=== PATIENT | male | born 1955 ===

== ENCOUNTER 2018-02-21 21:31 | Emergency (ER) | payer SELFPAY ==
[2018-02-21 22:24] LABS: BASO # 0.1 K/uL (0.0-0.2); BASO % 0.8 % (0.0-2.0); EOS # 0.1 K/uL (0.0-0.7); EOS % 1.2 % (0.0-4.0); HEMOGLOBIN 14.9 g/dL (12.0-18.0); LYMPH # 1.8 K/uL (1.0-4.3); MEAN CELL VOLUME 86.4 fL (80.0-94.0); MEAN CORPUSCULAR HEMOGLOBIN 30.5 pg (27.0-31.0); MEAN CORPUSCULAR HGB CONC 35.4 g/dL (33.0-37.0); MEAN PLATELET VOLUME 8.6 fL (7.2-11.7); MONO # 0.9 K/uL (0.0-0.8); MONO % 7.5 % (0.0-10.0); NEUT # 8.8 K/uL (1.8-7.0); NEUT % 75.5 % (50.0-75.0); NRBC % 0.2 % (0.0-2.0); RBC 4.89 Mil/uL (4.40-5.90); RED CELL DISTRIBUTION WIDTH 13.5 % (11.5-14.5); WHITE BLOOD COUNT 11.6 K/uL (4.8-10.8)
[2018-02-21] MEDS ORDERED: Sodium Chloride 0.9% 1,000 ML IV ONE (22:31)
[2018-02-21] MEDS ORDERED: Sucralfate 1 gm/10 ml Oral Susp UD PO STA (22:33)
--- NOTE | 2018-02-21 22:40 | C.PDOC ---
History Of Present Illness 62 y/o male presents to the ED complaining of abdominal pain for the past hours that began after "eating a hotdog". The patient denies any nausea, vomiting or diarrhea. He also denies any radiation of pain. Time Seen by Provider: 02/21/18 22:15 Chief Complaint (Nursing): Abdominal Pain History Per: Patient History/Exam Limitations: no limitations Onset/Duration Of Symptoms: Hrs Current Symptoms Are (Timing): Still Present Context: Food (hot dog ) Location Of Pain/Discomfort: RUQ, Epigastric Associated Symptoms: denies: Nausea, Vomiting, Diarrhea Recent travel outside of the [place]: No Past Medical History Reviewed: Historical Data, Nursing Documentation, Vital Signs Vital Signs: Last Vital Signs Temp 98.1 F 02/21/18 21:35 Pulse 87 02/21/18 21:35 Resp 16 02/21/18 21:35 BP 180/79 H 02/21/18 21:35 Pulse Ox 98 02/21/18 21:35 - Medical History PMH: Diabetes (Mellitus type2 ), HTN Surgical History: No Surg Hx Family History: States: Unknown Family Hx - Social History Hx Alcohol Use: No Hx Substance Use: No - Immunization History Hx Tetanus Toxoid Vaccination: No Hx Influenza Vaccination: No Hx Pneumococcal Vaccination: No Review Of Systems Except As Marked, All Systems Reviewed And Found Negative. Constitutional: Negative for: Fever Gastrointestinal: Positive for: Abdominal Pain. Negative for: Nausea, Vomiting, Diarrhea Physical Exam - Physical Exam Appears: Well, Non-toxic, No Acute Distress Skin: Normal Color, Warm, Dry Head: Atraumatic, Normacephalic Eye(s): bilateral: PERRL, EOMI Ear(s): Bilateral: Normal Oral Mucosa: Moist Neck: Supple Chest: Symmetrical Cardiovascular: Rhythm Regular, No Murmur Respiratory: Normal Breath Sounds, No Rales, No Rhonchi, No Wheezing Gastrointestinal/Abdominal: Soft, Tenderness (to epigastrium and RUQ), No Guarding, No Rebound Extremity: Normal ROM Extremity: Bilateral: Normal Color And Temperature, Normal ROM Neurological/Psych: Oriented x3, Normal Speech ED Course And Treatment - Laboratory Results Result Diagrams: 02/21/18 22:21 02/22/18 01:58 ECG: Interpreted By Me, Viewed By Me ECG Rhythm: Sinus Rhythm, L BBB ECG Interpretation: Abnormal Interpretation Of ECG: NSR,CLBBB, abnormal tracings Rate From EC O2 Sat by Pulse Oximetry: 98 (RA) Pulse Ox Interpretation: Normal Medical Decision Making Medical Decision Making: Impression: 62 y/o male with abdominal pain (in RUQ/ epigastrium) after food Plan: -EKG -Lipase -Troponin I -Bentyl 20 mg -Pepcid 20 mg -carafate 1 gm -IV Fluids -UA Disposition Counseled Patient/Family Regarding: Diagnosis - Disposition Referrals: [facility] [Outside] Disposition: HOME/ ROUTINE Disposition Time: 02:58 Condition: STABLE Prescriptions: Dicyclomine [Bentyl] 10 mg PO QID #14 cap Famotidine [Pepcid] 20 mg PO BID #30 tab Instructions: Gastritis, Ulcer and Gastritis Diet Forms: [facility] (Nepali) - POA Present On Arrival: None - Clinical Impression Clinical Impression: Abdominal pain, Gastritis and gastroduodenitis - PA / FITNESS SALES CONSULTANT / Resident Statement MD/DO has reviewed & agrees with the documentation as recorded. - Scribe Statement The provider has reviewed the documentation as recorded by the Scribe (Susu Cosme) Provider Attestation: All medical record entries made by the Scribe were at my direction and personally dictated by me. I have reviewed the chart and agree that the record accurately reflects my personal performance of the history, physical exam, medical decision making, and the department course for this patient. I have also personally directed, reviewed, and agree with the discharge instructions and disposition.
[2018-02-21 22:41] LABS: ALB/GLOB RATIO 1.4 (1.0-2.1); ALBUMIN 4.4 g/dL (3.5-5.0); ALT/SGPT 34 U/L (21-72); AMYLASE 83 U/L (30-110); AST/SGOT 28 U/L (17-59); BLOOD UREA NITROGEN 17 mg/dL (9-20); CALCIUM 9.9 mg/dl (8.6-10.4); GFR NON-AFRICAN AMERICAN > 60; LIPASE 142 U/L (23-300)
[2018-02-21] MEDS ORDERED: Sodium Chloride 0.9% 1,000 ML ONE (22:46)
[2018-02-21] MEDS ORDERED: Sucralfate 1 gm/10 ml Oral Susp UD ONE (22:46)
[2018-02-21 22:48] LABS: LIPASE 144 U/L (23-300)
[2018-02-21 23:20] LABS: SQUAMOUS EPITHIAL < 1 /hpf (0-5); URINE AMORPHOUS SEDIMENT MODERATE /ul (<OCC); URINE BILIRUBIN NEGATIVE (NEGATIVE); URINE BLOOD NEGATIVE (NEGATIVE); URINE CLARITY Hazy (Clear); URINE COLOR Yellow (YELLOW); URINE GLUCOSE (UA) NORMAL (Normal); URINE LEUKOCYTE ESTERASE NEG Leu/uL (Negative); URINE PROTEIN NEGATIVE (NEGATIVE); URINE UROBILINOGEN NORMAL mg/dL (0.2-1.0)
[2018-02-22] MEDS ORDERED: Sodium Chloride 0.9% 1,000 ML IV ONE (00:02)
[2018-02-22 02:20] LABS: BLOOD UREA NITROGEN 14 mg/dL (9-20); CALCIUM 8.7 mg/dl (8.6-10.4); GFR NON-AFRICAN AMERICAN > 60; LIPASE 105 U/L (23-300)
[2018-02-22 03:09] VITALS: BP 143/71; PULSE 63; RESP 20; TEMP 98
[2018-02-22 05:56] VITALS: O2SAT 98
--- NOTE | 2018-02-22 10:47 | US ---
HISTORY: RUQ pain COMPARISON: None available. TECHNIQUE: Sonographic evaluation of the abdomen. FINDINGS: Examination limited by habitus. LIVER: Measures 17.7 cm in sagittal dimension. Echogenic liver may be seen in setting of hepatic parenchymal disease or fatty infiltration. No focal hepatic mass identified. The main portal vein appears patent with normal directional flow. No intrahepatic bile duct dilatation. GALLBLADDER: No gallstones. No gallbladder wall thickening. Negative sonographic Carrington's sign as assessed by the tmd teacher assistant. COMMON BILE DUCT: Measures 5 mm. PANCREAS: Not well visualized. RIGHT KIDNEY: Measures 11.9 x 5.3 x 4.9 cm. Echogenic 9 mm lower pole focus, likely calculus. No hydronephrosis. LEFT KIDNEY: Measures 11.7 x 5.3 x 4.4 cm. No obstructing calculus or hydronephrosis identified. SPLEEN: Measures approximately 9.6 cm. AORTA: Limited views appear unremarkable. IVC: Not well-visualized. OTHER FINDINGS: None. IMPRESSION: Examination limited by habitus. Echogenic liver may be seen in setting of hepatic parenchymal disease or fatty infiltration. Echogenic 9 mm lower pole right renal focus, likely nonobstructing calculus. Preliminary impression was provided by [facility].
--- NOTE | 2018-02-23 15:13 | CARD ---
APPROVED REPORT Date of service: 02/21/2018 EKG Measurement Heart [id number] <Conclusion> Normal sinus rhythm Left bundle branch block Abnormal ECG
== END 2018-02-22 03:09 | disposition home or self-care (01) ==
LOC: C.ER 21:31
DX: K29.70 Gastritis, unspecified, without bleeding (principal); K29.90 Gastroduodenitis, unspecified, without bleeding; R10.9 Unspecified abdominal pain
CPT/HCPCS: 76700; 80048; 80053; 81001; 82150; 82948; 83690; 84484; 85025; 93005; 96361; 96372; 96374; 96375; 99285; J0500; J1885; J7030

== ENCOUNTER 2018-02-25 16:26 | Inpatient (IN) | payer OTHER ==
[2018-02-25 16:47] VITALS: BMI 34.8
[2018-02-25 17:18] LABS: VENOUS BLOOD GAS BASE EXCESS 4.1 mmol/L (0.0-2.0); VENOUS BLOOD GAS PCO2 36 mmHg (40-60); VENOUS BLOOD GAS PO2 29 mm/Hg (30-55); VENOUS BLOOD PH 7.49 (7.32-7.43)
[2018-02-25 17:33] LABS: BASO # 0.2 K/uL (0.0-0.2); HEMOGLOBIN 14.6 g/dL (12.0-18.0); LYMPH # 0.8 K/uL (1.0-4.3); LYMPH % 4.4 % (20.0-40.0); MEAN CELL VOLUME 86.9 fL (80.0-94.0); MEAN CORPUSCULAR HEMOGLOBIN 29.7 pg (27.0-31.0); MEAN CORPUSCULAR HGB CONC 34.2 g/dL (33.0-37.0); MEAN PLATELET VOLUME 9.7 fL (7.2-11.7); MONO # 1.9 K/uL (0.0-0.8); MONO % 10.7 % (0.0-10.0); NEUT # 15.3 K/uL (1.8-7.0); NEUT % 83.9 % (50.0-75.0); PLATELET COUNT 198 K/uL (130-400); RED CELL DISTRIBUTION WIDTH 13.9 % (11.5-14.5); WHITE BLOOD COUNT 18.2 K/uL (4.8-10.8)
[2018-02-25 17:41] LABS: INR 1.5
[2018-02-25] MEDS ORDERED: Ciprofloxacin 400mg/200ml D5W 400 MG/200 ML BAG IVPB STA (17:59)
[2018-02-25] MEDS ORDERED: metroNIDAZOLE IV 500 mg/100 ml 500 MG/100 ML BAG IVPB STA (17:59)
[2018-02-25] MEDS ORDERED: Piperacill/Tazo 3.375gm in Dex 3.375 GM/50 ML BAG IVPB STA (17:59)
[2018-02-25 18:01] LABS: ALB/GLOB RATIO 1.1 (1.0-2.1); ALBUMIN 3.9 g/dL (3.5-5.0); ALT/SGPT 50 U/L (21-72); AST/SGOT 53 U/L (17-59); BLOOD UREA NITROGEN 31 mg/dL (9-20); CALCIUM 8.6 mg/dl (8.6-10.4); GFR NON-AFRICAN AMERICAN 56; LIPASE 91 U/L (23-300)
[2018-02-25 18:10] LABS: B-TYPE NATRIURETIC PEPTIDE 441 pg/mL (0-900)
--- NOTE | 2018-02-25 18:15 | C.PDOC ---
History Of Present Illness 62 year old male with a history of diabetes and hypertension was advised by PMD Dr.Cesar Nevarez to visit the ED for evaluation of abdominal pain. Patient was seen 02/21/18 for similar symptoms after eating a hotdog and had an ultrasound that presented with no gallstones or inflamed gallbladder. Since then the patient has not had any bowel movements and reports decreased appetite. Admits to vomiting, diarrhea, feeling nauseous and fever of 103. Denies any other associated symptoms. Time Seen by Provider: 02/25/18 17:30 Chief Complaint (Nursing): Abdominal Pain History Per: Patient History/Exam Limitations: no limitations Onset/Duration Of Symptoms: Days Current Symptoms Are (Timing): Still Present Context: Food (after eating a hotdog) Associated Symptoms: Fever, Nausea, Vomiting, Loss Of Appetite Past Medical History Reviewed: Historical Data, Nursing Documentation, Vital Signs Vital Signs: Last Vital Signs Temp 103 F H 02/25/18 16:56 Pulse 112 H 02/25/18 16:47 Resp 22 02/25/18 16:47 BP 111/72 02/25/18 16:47 Pulse Ox 94 L 02/25/18 16:47 - Medical History PMH: Diabetes (Mellitus type2 ), HTN Family History: States: Unknown Family Hx - Social History Hx Alcohol Use: No Hx Substance Use: No - Immunization History Hx Tetanus Toxoid Vaccination: No Hx Influenza Vaccination: No Hx Pneumococcal Vaccination: No Review Of Systems Except As Marked, All Systems Reviewed And Found Negative. Constitutional: Positive for: Fever Gastrointestinal: Positive for: Nausea, Vomiting, Abdominal Pain, Other (no bowel movements. ) Physical Exam - Physical Exam Appears: Non-toxic, Other (obese) Skin: Warm, Dry Head: Atraumatic, Normacephalic Eye(s): bilateral: Normal Inspection Nose: Normal Oral Mucosa: Moist Neck: Normal ROM, Supple Chest: Symmetrical Cardiovascular: Rhythm Regular Respiratory: Normal Breath Sounds, No Rales, No Rhonchi, No Wheezing Gastrointestinal/Abdominal: Tenderness (to the right upper quadrant. ), Distention, Other (constipated. abdomen is heavy and bloated.) Extremity: Normal ROM (x4) Neurological/Psych: Oriented x3, Normal Speech, Normal Motor, Normal Sensation Gait: Steady ED Course And Treatment - Laboratory Results Result Diagrams: 02/25/18 17:27 02/25/18 17:27 O2 Sat by Pulse Oximetry: 94 (RA) Pulse Ox Interpretation: Normal - CT Scan/US U/S Abdomen Complete Other Rad Studies (CT/US): Read By Radiologist CT/US Interpretation: History: Abdominal pain. Comparison: None. Technique: Ultrasound of the abdomen. Real-time sonographic images of the abdomen were obtained. The liver appears enlarged measuring 18.5 cm in length and a moderate fatty infiltration. There is no mass or biliary duct dilatation. Spleen appears normal in size and echogenicity. Gallbladder appears normal. Distal common bile duct measures 5 mm in diameter. Pancreas is not visualized due to surrounding bowel gas. The right kidney measures 12.6 cm in length and the left kidney 11.8 cm in length. There is an approximate 1 cm calculus lower portion of the right kidney. Impression: Mildly enlarged liver with fatty infiltration. Gallbladder within normal limits. Pancreas not visualized. Approximate 1 cm right renal calculus. U/S Abdomen Complete Other Rad Studies (CT/US): Read By Radiologist CT/US Interpretation: Ultrasound abdomen, complete. Indication: Epigastric pain. Technique: Real-time ultrasound images were obtained. Findings: Mildly limited evaluation secondary to patient's body habitus. The liver is mildly enlarged measuring 17.7 cm. Diffuse increased hepatic echogenicity suggestive of fatty liver infiltration. Nondilated common bile duct measuring 5 mm. Unremarkable gallbladder with normal gallbladder wall thickness measuring 3 mm. Unremarkable right kidney measuring 11.9x5.3x4.9 cm. Echogenic focus is noted in the right renal lower calyceal group measuring 0.9 cm. Unremarkable left kidney measuring 11.7x5.3x2.4 cm. Impression: Hepatomegaly. Hepatic steatosis. No evidence of cholelithiasis or acute cholecystitis. Nonobstructing nephrolithiasis. CT Abd/Pelvis Other Rad Studies (CT/US): Read By Radiologist CT/US Interpretation: CLINICAL HISTORY: Periumbilical pain. TECHNIQUE: Multiple axial, coronal, sagittal CT images were obtained through the abdomen and pelvis without administration of oral or IV contrast material. DLP 1204.30. COMMENTS: The liver is enlarged measuring 24 cm in length with diffuse hepatic hypoattenuation consistent with fatty infiltration. There is no intra or extrahepatic biliary ductal dilatation. The spleen is normal. The gallbladder is markedly distended. There is a 5 mm calcified stone at the gallbladder neck. There is marked pericholecystic inflammatory stranding with fluid collections consistent with acute cholecystitis. The pancreas is of normal contour and attenuation characteristics. There is no evidence of adrenal mass. The kidneys are normal in size, shape and configuration. No renal or ureteral calculi are identified. There is no hydroureter or hydronephrosis. There is no evidence for appendicitis. There is mildly distended fluid filled colon with mild wall thickening especially at the cecum and ascending colon as well as the rectosigmoid. This is consistent with wong-colitis. Infectious and inflammatory etiologies are considered. No evidence for small or large bowel obstruction. There is no evidence of abdominal ascites or lymphadenopathy. There is no evidence of intrinsic or extrinsic bladder mass. There is no pelvic ascites or lymphadenopathy. Images of the lung bases show no evidence of pleural or parenchymal mass. The heart is enlarged. Pulmonary venous congestive changes are present. There is right lower lobe consolidation with air bronchograms consistent with pneumonia. Trace right pleural effusion is present. The bony structures are free of lytic or blastic lesions. IMPRESSION: 1. Acute cholecystitis. Surgical consultation is recommended at this time. 2. Hepatomegaly with fatty infiltration. 3. Wong-colitis. Infectious and i nflammatory etiologies are considered. 4. The heart is enlarged. Pulmonary venous congestive changes. 5. Right lower lobe consolidation with air bronchograms consistent with pneumonia. Trace right pleural effusion. Medical Decision Making Medical Decision Making: Plan: --Blood sent. --EKG --CXR --Urinalysis --Abdomen obstructive series X-ray. --U/S Abdomen --CT Abd/Pelvis w/o no contrast no IV --Urine and blood culture. --Given Ciprofloxacin, Metronidazole, Lactated Ringers, Piperacill/Tazo, and Vancomycin. Update/Progress: 7:20 Discussed case with surgical residence who will see patient. 7:33pm Spoke with Dr. Duncan. Discussed labs with surgical coordinator who advised medicine admit patient, medicine is taking some time to think about the case. 8:05pm Spoke with Dr. Ang. Disposition Discussed With : Murali Bunch Doctor Will See Patient In The: Hospital Counseled Patient/Family Regarding: Studies Performed, Diagnosis - Disposition Disposition: HOSPITALIZED Disposition Time: 20:05 Condition: GUARDED - Clinical Impression Clinical Impression: Abdominal bloating, Acute cholecystitis - Scribe Statement The provider has reviewed the documentation as recorded by the Scribe (Mine Nunn) Provider Attestation: All medical record entries made by the Scribe were at my direction and personally dictated by me. I have reviewed the chart and agree that the record accurately reflects my personal performance of the history, physical exam, medical decision making, and the department course for this patient. I have also personally directed, reviewed, and agree with the discharge instructions and disposition. Decision To Admit - Pt Status Changed To: Hospital Disposition Of: Inpatient - Admit Certification Admit to Inpatient:: After my assessment, the patient will require hospitalization for at least two midnights. This is because of the severity of symptoms shown, intensity of services needed, and/or the medical risk in this patient being treated as an outpatient. - InPatient: Physician Admission Certification:: acute mary ellen with fever and leukositosis - . Bed Request Type: Telemetry Admitting Physician: Murali Bunch Patient Diagnosis: Abdominal bloating, Acute cholecystitis
[2018-02-25 18:19] LABS: LYMPHOCYTE 3 % (20-40); MONOCYTE 11 % (0-10); NEUTROPHIL 86 % (50-75); PLATELET ESTIMATE NORMAL (NORMAL); TOTAL CELLS COUNTED 100
[2018-02-25] MEDS ORDERED: Piperacillin/Tazobact 3.375 gm 100 ML IVPB ONE (18:24)
[2018-02-25] MEDS ORDERED: metroNIDAZOLE IV 500 mg/100 ml 500 MG/100 ML BAG ONE (18:44)
[2018-02-25 19:14] LABS: SQUAMOUS EPITHIAL < 1 /hpf (0-5); URINE BACTERIA OCC (<OCC); URINE BILIRUBIN NEGATIVE (NEGATIVE); URINE BLOOD 3+ (NEGATIVE); URINE CLARITY Hazy (Clear); URINE COLOR Amber (YELLOW); URINE GLUCOSE (UA) 1+ mg/dL (Normal); URINE LEUKOCYTE ESTERASE NEG Leu/uL (Negative); URINE PROTEIN 2+ mg/dL (NEGATIVE); URINE UROBILINOGEN NORMAL mg/dL (0.2-1.0)
[2018-02-25 19:39] LABS: VENOUS BLOOD GAS BASE EXCESS 0.5 mmol/L (0.0-2.0); VENOUS BLOOD GAS PCO2 41 mmHg (40-60); VENOUS BLOOD GAS PO2 21 mm/Hg (30-55)
--- NOTE | 2018-02-25 20:06 | CP.PCM.HP ---
<Murali Bunch P - Last Filed: 02/25/18 20:49> Meds Allergies/Adverse Reactions: Allergies Allergy/AdvReac Type Severity Reaction Status Date / Time No Known Allergies Allergy Verified 02/25/18 16:45 Results - Vital Signs Recent Vital Signs: Last Vital Signs Temp 99.6 F 02/25/18 18:58 Pulse 86 02/25/18 20:30 Resp 20 02/25/18 20:30 BP 121/64 02/25/18 20:30 Pulse Ox 94 L 02/25/18 20:43 - Labs Result Diagrams: 02/25/18 17:27 02/25/18 17:27 Labs: Laboratory Results - last 24 hr 02/25/18 02/25/18 02/25/18 17:15 17:27 17:27 WBC 18.2 H D RBC 4.90 Hgb 14.6 Hct 42.5 MCV 86.9 MCH 29.7 MCHC 34.2 RDW 13.9 Plt Count 198 MPV 9.7 Neut % (Auto) 83.9 H Lymph % (Auto) 4.4 L [place] % (Auto) 10.7 H Eos % (Auto) 0.0 Baso % (Auto) 1.0 Neut # (Auto) 15.3 H Lymph # (Auto) 0.8 L [place] # (Auto) 1.9 H Eos # (Auto) 0.0 Baso # (Auto) 0.2 Neutrophils % (Manual) 86 H Lymphocytes % (Manual) 3 L Monocytes % (Manual) 11 H Platelet Estimate Normal RBC Morphology Normal PT INR APTT pO2 29 L VBG pH 7.49 H VBG pCO2 36 L VBG HCO3 27.2 VBG Total CO2 28.5 H VBG O2 Sat (Calc) 65.7 H VBG Base Excess 4.1 H VBG Potassium 3.1 L Sodium 132.0 133 Chloride 94.0 L 93 L Glucose 290 H Lactate 2.1 Potassium 3.2 L Carbon Dioxide 27 Anion Gap 16 BUN 31 H Creatinine 1.3 Est GFR ( Amer) > 60 Est GFR (Non-Af Amer) 56 Random Glucose 276 H Calcium 8.6 Phosphorus 1.2 L Magnesium 2.8 H Total Bilirubin 1.1 AST 53 ALT 50 Alkaline Phosphatase 115 Troponin I 0.0280 NT-Pro-B Natriuret Pep 441 Total Protein 7.5 Albumin 3.9 Globulin 3.5 Albumin/Globulin Ratio 1.1 Lipase 91 Venous Blood Potassium 3.1 L Urine Color Urine Clarity Urine pH Ur Specific [place] Urine Protein Urine Glucose (UA) Urine Ketones Urine Blood Urine Nitrate Urine Bilirubin Urine Urobilinogen Ur Leukocyte Esterase Urine WBC (Auto) Urine RBC (Auto) Ur Squamous Epith Cells Urine Bacteria 02/25/18 02/25/18 02/25/18 17:27 18:51 19:32 WBC RBC Hgb Hct MCV MCH MCHC RDW Plt Count MPV Neut % (Auto) Lymph % (Auto) [place] % (Auto) Eos % (Auto) Baso % (Auto) Neut # (Auto) Lymph # (Auto) [place] # (Auto) Eos # (Auto) Baso # (Auto) Neutrophils % (Manual) Lymphocytes % (Manual) Monocytes % (Manual) Platelet Estimate RBC Morphology PT 16.0 H INR 1.5 APTT 32 pO2 21 L VBG pH 7.40 VBG pCO2 41 VBG HCO3 23.6 VBG Total CO2 26.7 VBG O2 Sat (Calc) 41.5 VBG Base Excess 0.5 VBG Potassium 3.2 L Sodium 135.0 Chloride 105.0 Glucose 226 H Lactate 1.5 Potassium Carbon Dioxide Anion Gap BUN Creatinine Est GFR ( Amer) Est GFR (Non-Af Amer) Random Glucose Calcium Phosphorus Magnesium Total Bilirubin AST ALT Alkaline Phosphatase Troponin I NT-Pro-B Natriuret Pep Total Protein Albumin Globulin Albumin/Globulin Ratio Lipase Venous Blood Potassium 3.2 L Urine Color Suzie Urine Clarity Hazy Urine pH 5.0 Ur Specific [place] 1.027 Urine Protein 2+ H Urine Glucose (UA) 1+ H Urine Ketones 1+ H Urine Blood 3+ H Urine Nitrate Negative Urine Bilirubin Negative Urine Urobilinogen Normal Ur Leukocyte Esterase Neg Urine WBC (Auto) 5 Urine RBC (Auto) 11 H Ur Squamous Epith Cells < 1 Urine Bacteria Occ H Attending/Attestation - Attestation I have personally seen and examined this patient.: Yes I have fully participated in the care of the patient.: Yes I have reviewed all pertinent clinical information: Yes Notes (Text): 02/25/18 20:49 Acute cholecystitis with inflammation around and in the fat beneath about 4 days of history H/o DM on metformin H/o HTN LBBB without h/o of any cardiac symptoms or limitation of activity Plan Abx, npo, ivf Accuchecks maintain euglycemia, may hold metformin due to acute inflammation Echo, prior ekg, due to LBBB D/w surg due to inflammation suggest IR drainage, abx and surg later date in 4-6 wks. See orders for detail. <Colleen Carrera - Last Filed: 02/25/18 23:14> History of Present Illness - History of Present Illness History of Present Illness: History and Physical - Hospitalist Service CC: Abdominal pain x 1 week HPI: Patient is a 62 year old male with past medical history of Hypertension and Diabetes Mellitus, Type 2 who was sent to the emergency dept by his PMD for worsening abdominal pain and fevers/chills. Patient states that abdominal pain started last Sunday. He has never had this pain before in the past. Pain is located in the RUQ and does not radiate. Describes that pain as "hard" and constant in nature. Patient has been associated with decreased PO intake and subjective fevers. Patient states that he has not eaten anything solid since last Sunday but has been able to tolerate liquids. Patient saw his PMD today and was found to have a fever of 104. Patient states that for the last two days he was having diarrhea. Unable to quantify how much. He states that it is watery. Last bowel movement was this afternoon at 3pm. Patient was recently seen in the ED on 02/21/18 for RUQ/epigastric pain worse after eating. Abdominal US at that time did not show gallstones or gallbladder wall thickening. Code sepsis was called in the emergency department. Currently patient is resting comfortably. Denies nausea/vomiting, headaches, dizziness, changes in vision, cp, palpitations, sob, dysuria. He does admit to increase in urinary frequency. ED course: Tylenol 650mg PO x 2, Lactated Ringers, Zosyn 3.375mg IVPB, Flagyl 500mg IVPB, Ciprofloxacin 400mg IVPB, Vancomycin 1gm PMD: Dr Nevarez Allergies: NKDA Medications: Losartan 25mg PO daily, Metformin 1000mg PO BID Medical History: Diabetes Mellitus, Hypertension, Obesity Surgical History: Denies Social History: Denies alcohol, tobacco, drug use; retired (used to work removing asbestos for 50 years) Family History: Denies Present on Admission - Present on Admission Any Indicators Present on Admission: No Past Patient History - Past Social History Smoking Status: Never Smoked - CARDIAC Hx Hypertension: Yes - ENDOCRINE/METABOLIC Hx Diabetes Mellitus Type 2: Yes - PSYCHIATRIC Hx Substance Use: No - SURGICAL HISTORY Hx Surgeries: No - ANESTHESIA Hx Anesthesia: No Physical Exam - Constitutional Appears: Non-toxic, No Acute Distress - Head Exam Head Exam: ATRAUMATIC, NORMAL INSPECTION, NORMOCEPHALIC - Eye Exam Eye Exam: EOMI, Normal appearance. absent: Scleral icterus Pupil Exam: NORMAL ACCOMODATION - ENT Exam ENT Exam: Mucous Membranes Dry - Neck Exam Neck exam: Positive for: Full Rom - Respiratory Exam Respiratory Exam: Clear to Auscultation Bilateral, NORMAL BREATHING PATTERN. absent: Rales, Rhonchi, Wheezes - Cardiovascular Exam Cardiovascular Exam: REGULAR RHYTHM, +S1, +S2, Systolic Murmur - GI/Abdominal Exam GI & Abdominal Exam: Distended, Hypoactive Bowel Sounds, Soft, Tenderness. absent: Guarding, Rebound, Rigid Additional comments: +RUQ tenderness and epigastric tenderness - Extremities Exam Extremities exam: Positive for: normal inspection, pedal pulses present. Negative for: calf tenderness, joint swelling - Back Exam Back exam: NORMAL INSPECTION. absent: CVA tenderness (L), CVA tenderness (R) - Neurological Exam Neurological exam: Alert, CN II-XII Intact, Oriented x3 - Psychiatric Exam Psychiatric exam: Normal Affect, Normal Mood - Skin Skin Exam: Dry, Normal Color, Warm Results - Vital Signs Recent Vital Signs: Last Vital Signs Temp 99.6 F 02/25/18 18:58 Pulse 84 02/25/18 18:58 Resp 24 02/25/18 18:58 BP 118/58 L 02/25/18 18:58 Pulse Ox 94 L 02/25/18 19:23 - Labs Result Diagrams: 02/25/18 17:27 02/25/18 17:27 Labs: Laboratory Results - last 24 hr 02/25/18 02/25/18 02/25/18 17:15 17:27 17:27 WBC 18.2 H D RBC 4.90 Hgb 14.6 Hct 42.5 MCV 86.9 MCH 29.7 MCHC 34.2 RDW 13.9 Plt Count 198 MPV 9.7 Neut % (Auto) 83.9 H Lymph % (Auto) 4.4 L [place] % (Auto) 10.7 H Eos % (Auto) 0.0 Baso % (Auto) 1.0 Neut # (Auto) 15.3 H Lymph # (Auto) 0.8 L [place] # (Auto) 1.9 H Eos # (Auto) 0.0 Baso # (Auto) 0.2 Neutrophils % (Manual) 86 H Lymphocytes % (Manual) 3 L Monocytes % (Manual) 11 H Platelet Estimate Normal RBC Morphology Normal PT INR APTT pO2 29 L VBG pH 7.49 H VBG pCO2 36 L VBG HCO3 27.2 VBG Total CO2 28.5 H VBG O2 Sat (Calc) 65.7 H VBG Base Excess 4.1 H VBG Potassium 3.1 L Sodium 132.0 133 Chloride 94.0 L 93 L Glucose 290 H Lactate 2.1 Potassium 3.2 L Carbon Dioxide 27 Anion Gap 16 BUN 31 H Creatinine 1.3 Est GFR ( Amer) > 60 Est GFR (Non-Af Amer) 56 Random Glucose 276 H Calcium 8.6 Phosphorus 1.2 L Magnesium 2.8 H Total Bilirubin 1.1 AST 53 ALT 50 Alkaline Phosphatase 115 Troponin I 0.0280 NT-Pro-B Natriuret Pep 441 Total Protein 7.5 Albumin 3.9 Globulin 3.5 Albumin/Globulin Ratio 1.1 Lipase 91 Venous Blood Potassium 3.1 L Urine Color Urine Clarity Urine pH Ur Specific [place] Urine Protein Urine Glucose (UA) Urine Ketones Urine Blood Urine Nitrate Urine Bilirubin Urine Urobilinogen Ur Leukocyte Esterase Urine WBC (Auto) Urine RBC (Auto) Ur Squamous Epith Cells Urine Bacteria 02/25/18 02/25/18 02/25/18 17:27 18:51 19:32 WBC RBC Hgb Hct MCV MCH MCHC RDW Plt Count MPV Neut % (Auto) Lymph % (Auto) [place] % (Auto) Eos % (Auto) Baso % (Auto) Neut # (Auto) Lymph # (Auto) [place] # (Auto) Eos # (Auto) Baso # (Auto) Neutrophils % (Manual) Lymphocytes % (Manual) Monocytes % (Manual) Platelet Estimate RBC Morphology PT 16.0 H INR 1.5 APTT 32 pO2 21 L VBG pH 7.40 VBG pCO2 41 VBG HCO3 23.6 VBG Total CO2 26.7 VBG O2 Sat (Calc) 41.5 VBG Base Excess 0.5 VBG Potassium 3.2 L Sodium 135.0 Chloride 105.0 Glucose 226 H Lactate 1.5 Potassium Carbon Dioxide Anion Gap BUN Creatinine Est GFR ( Amer) Est GFR (Non-Af Amer) Random Glucose Calcium Phosphorus Magnesium Total Bilirubin AST ALT Alkaline Phosphatase Troponin I NT-Pro-B Natriuret Pep Total Protein Albumin Globulin Albumin/Globulin Ratio Lipase Venous Blood Potassium 3.2 L Urine Color Suzie Urine Clarity Hazy Urine pH 5.0 Ur Specific [place] 1.027 Urine Protein 2+ H Urine Glucose (UA) 1+ H Urine Ketones 1+ H Urine Blood 3+ H Urine Nitrate Negative Urine Bilirubin Negative Urine Urobilinogen Normal Ur Leukocyte Esterase Neg Urine WBC (Auto) 5 Urine RBC (Auto) 11 H Ur Squamous Epith Cells < 1 Urine Bacteria Occ H Assessment & Plan - Assessment and Plan (Free Text) Assessment: A/P: Patient is a 62 year old male with past medical history of Diabetes Mellitus, Hypertension who was sent to the emergency dept from his PMD for abdominal pain and fevers. Abdominal pain likely secondary to Acute Cholecystitis -Stable, Tmax 103, Leukocytosis 18.2 -Code sepsis called in the Emergency Dept -Will admit to telemetry -CT abd/pelvis showed acute cholecystitis, 5mm calcified stone in the neck of the gallbladder, hepatomegaly with fatty infiltration, pancolitis, the heart is enlarged, pulmonary vascular congestive changes, right lower lobe consolidation with air bronchograms consistent with pneumonia (official report pending) -Gallbladder US showed gallbladder wall thickening, pericholecystic fluid, fatty liver (official read pending) -CXR ordered as well -F/U blood cultures, urine cultures, procalcitonin -Diet: NPO -Continue LR at 100cc/hr -Antibiotics: Zosyn 3.375mg IVPB Q6H -Tylenol 650mg PO Q6H prn -General Surgery on consult, Dr Cabrera, help appreciated -Will request IR consultation for possible gallbladder drainage Pancolitis -Antibiotics: Zosyn 3.375mg IVPB Q6H -F/U stool culture, ova/parasites, fecal leukocytes -Continue IV hydration Abnormal UA -UA showed +2 protein, +1 glucose, +1 ketones, +3 blood, 11 RBC, occasional bacteria -F/U urine culture Electrolyte Abnormalities -Phos was 1.2, Potassium 3.2 -Will replete with Kphos 15mmols x 1 dose -F/U am labs Left Bundle Branch Block -EKG on admission showed LBBB -Initial troponin was negative -Patient denies any chest pain or shortness of breath, denies any cardiac history -We will order echocardiogram for further workup History of Diabetes Mellitus, Type 2 -Patient takes Metformin 1000mg PO BID -We will hold Metformin at this time -Low dose Insulin sliding scale Q6H -Accuchecks Q6H -F/U hemoglobin A1C Hypertension -Patient is on Losartan 25mg PO daily -Currently normatensive, will hold BP meds at this time GI/DVT ppx: -Protonix 40mg IVP daily -SCDs Plan discussed with Dr Julio C Carrera DO PGY-2
[2018-02-25] MEDS ORDERED: Ciprofloxacin 400mg/200ml D5W 400 MG/200 ML BAG IVPB ONE (20:20)
[2018-02-25] MEDS ORDERED: Vancomycin 1 GM 1 GM/250 ML BAG IVPB ONE (20:20)
[2018-02-25] MEDS ORDERED: Vancomycin 1 GM 1 GM/250 ML BAG IVPB STA (20:20)
--- NOTE | 2018-02-25 20:25 | CP.PCM.CON ---
<Frank Urbina - Last Filed: 02/25/18 20:21> History of Present Illness - History of Present Illness History of Present Illness: Gen Sx: Dr Cabrera Pt is a 62M with hx of DM and HTN. Pt seen by PMD today and was sent to ED for further evaluation of abdominal pain. Recently seen on 02/21/18 for similar symptoms which have not resolved. He has been unable to tolerate PO. Pain is in RUQ and radiates to right shoulder, 10/10 at times. He has had multiple episodes of emesis with persistent nausea. He has felt feverish, and has a temp of 103.8 in the ED with tachycardia up to 120s. Improved with IV bolus. CT demonstrates a distended GB with surrounding inflammation and a solitary stone impacted in the neck. Review of Systems - Review of Systems All systems: reviewed and no additional remarkable complaints except (as per hpi) Past Patient History - Past Social History Smoking Status: Never Smoked - CARDIAC Hx Hypertension: Yes - ENDOCRINE/METABOLIC Hx Diabetes Mellitus Type 2: Yes - PSYCHIATRIC Hx Substance Use: No - SURGICAL HISTORY Hx Surgeries: No - ANESTHESIA Hx Anesthesia: No Meds Allergies/Adverse Reactions: Allergies Allergy/AdvReac Type Severity Reaction Status Date / Time No Known Allergies Allergy Verified 02/25/18 16:45 - Medications Medications: Current Medications Vancomycin HCl (Vancomycin 1gm In Normal Saline Addvantage) 1 gm in 250 mls @ 133 mls/hr IVPB STAT STA; Protocol Stop: 02/25/18 22:12 Pantoprazole Sodium (Protonix Inj) 40 mg IVP DAILY AMANDA Physical Exam - Constitutional Appears: Non-toxic, No Acute Distress - Head Exam Head Exam: NORMAL INSPECTION - Eye Exam Eye Exam: absent: Scleral icterus - ENT Exam ENT Exam: Mucous Membranes Dry - Respiratory Exam Respiratory Exam: absent: Accessory Muscle Use, Respiratory Distress - Cardiovascular Exam Cardiovascular Exam: Tachycardia, REGULAR RHYTHM - GI/Abdominal Exam GI & Abdominal Exam: Guarding (voluntary), Soft, Tenderness (RUQ and epigastric). absent: Distended, Firm Results - Vital Signs Recent Vital Signs: Last Vital Signs Temp 99.6 F 02/25/18 18:58 Pulse 84 02/25/18 18:58 Resp 24 02/25/18 18:58 BP 118/58 L 02/25/18 18:58 Pulse Ox 94 L 02/25/18 20:10 - Labs Result Diagrams: 02/25/18 17:27 02/25/18 17:27 Labs: Laboratory Results - last 24 hr 02/25/18 02/25/18 02/25/18 17:15 17:27 17:27 WBC 18.2 H D RBC 4.90 Hgb 14.6 Hct 42.5 MCV 86.9 MCH 29.7 MCHC 34.2 RDW 13.9 Plt Count 198 MPV 9.7 Neut % (Auto) 83.9 H Lymph % (Auto) 4.4 L [place] % (Auto) 10.7 H Eos % (Auto) 0.0 Baso % (Auto) 1.0 Neut # (Auto) 15.3 H Lymph # (Auto) 0.8 L [place] # (Auto) 1.9 H Eos # (Auto) 0.0 Baso # (Auto) 0.2 Neutrophils % (Manual) 86 H Lymphocytes % (Manual) 3 L Monocytes % (Manual) 11 H Platelet Estimate Normal RBC Morphology Normal PT INR APTT pO2 29 L VBG pH 7.49 H VBG pCO2 36 L VBG HCO3 27.2 VBG Total CO2 28.5 H VBG O2 Sat (Calc) 65.7 H VBG Base Excess 4.1 H VBG Potassium 3.1 L Sodium 132.0 133 Chloride 94.0 L 93 L Glucose 290 H Lactate 2.1 Potassium 3.2 L Carbon Dioxide 27 Anion Gap 16 BUN 31 H Creatinine 1.3 Est GFR ( Amer) > 60 Est GFR (Non-Af Amer) 56 Random Glucose 276 H Calcium 8.6 Phosphorus 1.2 L Magnesium 2.8 H Total Bilirubin 1.1 AST 53 ALT 50 Alkaline Phosphatase 115 Troponin I 0.0280 NT-Pro-B Natriuret Pep 441 Total Protein 7.5 Albumin 3.9 Globulin 3.5 Albumin/Globulin Ratio 1.1 Lipase 91 Venous Blood Potassium 3.1 L Urine Color Urine Clarity Urine pH Ur Specific [place] Urine Protein Urine Glucose (UA) Urine Ketones Urine Blood Urine Nitrate Urine Bilirubin Urine Urobilinogen Ur Leukocyte Esterase Urine WBC (Auto) Urine RBC (Auto) Ur Squamous Epith Cells Urine Bacteria 02/25/18 02/25/18 02/25/18 17:27 18:51 19:32 WBC RBC Hgb Hct MCV MCH MCHC RDW Plt Count MPV Neut % (Auto) Lymph % (Auto) [place] % (Auto) Eos % (Auto) Baso % (Auto) Neut # (Auto) Lymph # (Auto) [place] # (Auto) Eos # (Auto) Baso # (Auto) Neutrophils % (Manual) Lymphocytes % (Manual) Monocytes % (Manual) Platelet Estimate RBC Morphology PT 16.0 H INR 1.5 APTT 32 pO2 21 L VBG pH 7.40 VBG pCO2 41 VBG HCO3 23.6 VBG Total CO2 26.7 VBG O2 Sat (Calc) 41.5 VBG Base Excess 0.5 VBG Potassium 3.2 L Sodium 135.0 Chloride 105.0 Glucose 226 H Lactate 1.5 Potassium Carbon Dioxide Anion Gap BUN Creatinine Est GFR ( Amer) Est GFR (Non-Af Amer) Random Glucose Calcium Phosphorus Magnesium Total Bilirubin AST ALT Alkaline Phosphatase Troponin I NT-Pro-B Natriuret Pep Total Protein Albumin Globulin Albumin/Globulin Ratio Lipase Venous Blood Potassium 3.2 L Urine Color Suzie Urine Clarity Hazy Urine pH 5.0 Ur Specific [place] 1.027 Urine Protein 2+ H Urine Glucose (UA) 1+ H Urine Ketones 1+ H Urine Blood 3+ H Urine Nitrate Negative Urine Bilirubin Negative Urine Urobilinogen Normal Ur Leukocyte Esterase Neg Urine WBC (Auto) 5 Urine RBC (Auto) 11 H Ur Squamous Epith Cells < 1 Urine Bacteria Occ H Assessment & Plan - Assessment and Plan (Free Text) Assessment: 62M with sepsis likely secondary to acute cholecystitis Plan: NPO IVF abx - rec Zosyn given septic presentation and duration of symptoms pt has higher operative morbidity/mortality than typical acute cholecystitis pt would benefit from IR drainage PTC vs cholecystostomy tube with delayed lap mary ellen on an elective basis in 6-8 weeks will cont to follow d/w Dr Rick Urbina, PGY4 <Yfn Cabrera B - Last Filed: 02/27/18 11:41> Meds - Medications Medications: Current Medications Acetaminophen (Tylenol 325mg Tab) 650 mg PO Q6 PRN PRN Reason: Fever >100.4 F Lactated Ringer's (Lactated Ringer's) 1,000 mls @ 125 mls/hr IV .Q8H AMANDA Last Admin: 02/27/18 07:59 Dose: 125 mls/hr Piperacillin Sod/Tazobactam Sod (Zosyn 3.375 Gm Iv Premix) 3.375 gm in 50 mls @ 100 mls/hr IVPB Q6H AMANDA; Protocol Last Admin: 02/27/18 11:32 Dose: 100 mls/hr Metronidazole (Flagyl) 500 mg in 100 mls @ 100 mls/hr IVPB Q8H AMANDA; Protocol Last Admin: 02/27/18 07:56 Dose: 100 mls/hr Ibuprofen (Motrin Tab) 400 mg PO Q4 PRN PRN Reason: Fever >100.4 F Insulin Human Regular (Novolin R) 0 unit SC Q6H AMANDA; Protocol Last Admin: 02/27/18 08:45 Dose: Not Given Morphine Sulfate (Morphine) 2 mg IVP Q4 PRN PRN Reason: Pain, severe (8-10) Morphine Sulfate (Morphine) 1 mg IVP Q4 PRN PRN Reason: Pain, moderate (4-7) Last Admin: 02/26/18 23:48 Dose: 1 mg Pantoprazole Sodium (Protonix Inj) 40 mg IVP DAILY [facility] Last Admin: 02/27/18 09:28 Dose: 40 mg Simethicone (Mylicon Chew Tab) 80 mg PO Q6 AMANDA Last Admin: 02/27/18 11:04 Dose: 80 mg Results - Vital Signs Recent Vital Signs: Last Vital Signs Temp 98.1 F 02/27/18 07:58 Pulse 76 02/27/18 09:08 Resp 20 02/27/18 07:58 BP 149/72 02/27/18 07:58 Pulse Ox 95 02/27/18 07:58 - Labs Result Diagrams: 02/27/18 07:44 02/27/18 07:44 Labs: Laboratory Results - last 24 hr 02/26/18 02/26/18 02/26/18 07:45 14:42 16:14 WBC RBC Hgb Hct MCV MCH MCHC RDW Plt Count MPV Neut % (Auto) Lymph % (Auto) [place] % (Auto) Eos % (Auto) Baso % (Auto) Neut # (Auto) Lymph # (Auto) [place] # (Auto) Eos # (Auto) Baso # (Auto) Neutrophils % (Manual) Lymphocytes % (Manual) Monocytes % (Manual) Eosinophils % (Manual) Platelet Estimate Hypochromasia (manual) Poikilocytosis (manual Anisocytosis (manual) Target Cells Sodium Potassium Chloride Carbon Dioxide Anion Gap BUN Creatinine Est GFR ( Amer) Est GFR (Non-Af Amer) POC Glucose (mg/dL) 194 H 196 H Random Glucose Calcium Phosphorus Magnesium Total Bilirubin AST ALT Alkaline Phosphatase Total Protein Albumin Globulin Albumin/Globulin Ratio Procalcitonin 5.66 H 02/26/18 02/27/18 02/27/18 21:06 03:05 06:05 WBC RBC Hgb Hct MCV MCH MCHC RDW Plt Count MPV Neut % (Auto) Lymph % (Auto) [place] % (Auto) Eos % (Auto) Baso % (Auto) Neut # (Auto) Lymph # (Auto) [place] # (Auto) Eos # (Auto) Baso # (Auto) Neutrophils % (Manual) Lymphocytes % (Manual) Monocytes % (Manual) Eosinophils % (Manual) Platelet Estimate Hypochromasia (manual) Poikilocytosis (manual Anisocytosis (manual) Target Cells Sodium Potassium Chloride Carbon Dioxide Anion Gap BUN Creatinine Est GFR ( Amer) Est GFR (Non-Af Amer) POC Glucose (mg/dL) 185 H 205 H 160 H Random Glucose Calcium Phosphorus Magnesium Total Bilirubin AST ALT Alkaline Phosphatase Total Protein Albumin Globulin Albumin/Globulin Ratio Procalcitonin 02/27/18 02/27/18 07:44 07:44 WBC 9.1 RBC 3.77 L Hgb 11.4 L Hct 33.1 L MCV 87.8 MCH 30.2 MCHC 34.4 RDW 14.3 Plt Count 168 MPV 9.1 Neut % (Auto) 73.0 Lymph % (Auto) 9.9 L [place] % (Auto) 15.3 H Eos % (Auto) 1.1 Baso % (Auto) 0.7 Neut # (Auto) 6.7 Lymph # (Auto) 0.9 L [place] # (Auto) 1.4 H Eos # (Auto) 0.1 Baso # (Auto) 0.1 Neutrophils % (Manual) 71 Lymphocytes % (Manual) 12 L Monocytes % (Manual) 16 H Eosinophils % (Manual) 1 Platelet Estimate Normal Hypochromasia (manual) Slight Poikilocytosis (manual Slight Anisocytosis (manual) Slight Target Cells Slight Sodium 138 Potassium 3.7 Chloride 102 Carbon Dioxide 26 Anion Gap 13 BUN 18 Creatinine 0.9 Est GFR ( Amer) > 60 Est GFR (Non-Af Amer) > 60 POC Glucose (mg/dL) Random Glucose 171 H Calcium 7.4 L Phosphorus 2.0 L Magnesium 2.7 H Total Bilirubin 1.4 H AST 52 ALT 57 Alkaline Phosphatase 83 Total Protein 5.5 L Albumin 2.6 L Globulin 2.9 Albumin/Globulin Ratio 0.9 L Procalcitonin Attending/Attestation - Attestation I have personally seen and examined this patient.: Yes I have fully participated in the care of the patient.: Yes I have reviewed all pertinent clinical information: Yes Notes (Text): Pt was seen and examined at bedside Agree with above note and assessment Pt with Acute cholecystitis with Sepsis Abdomen: Soft, Tender in RUQ Labs and Radiology reviewed Ass: Acute Cholecystitis with Leucocytosis, sepsis Plan : IV antibiotics IR consult for Cholecystostomy tube NPO, IVF Plan d.w pt in detail Risk and benefit explained in detail.
[2018-02-25] MEDS: Vancomycin 1 gm/NS 200 ml 1 GM/200 ML BAG IVPB STA ×2 (20:29→20:39)
[2018-02-25 20:31] VITALS: RESP 20
[2018-02-25] MEDS ORDERED: Potassium Phosphate 15 MMOLE in Sodium Chloride 0.9% 250 ML IVPB ONE (20:51)
[2018-02-25] MEDS ORDERED: (Novolin R) Insulin Human Regular 100 units/ml vial ONE (21:06)
[2018-02-25] MEDS: (Novolin R) Insulin Human Regular 100 units/ml vial SC SCH (21:08)
[2018-02-25] MEDS: Lactated Ringer's 1,000 ML IV SCH (21:30)
[2018-02-26] MEDS: Piperacill/Tazo 3.375gm in Dex 3.375 GM/50 ML BAG IVPB SCH ×5 (01:20→23:47)
[2018-02-26] MEDS ORDERED: Piperacillin/Tazobact 3.375 gm 100 ML IVPB ONE (01:20)
[2018-02-26] MEDS: (Novolin R) Insulin Human Regular 100 units/ml vial SC SCH ×4 (02:56→20:56)
[2018-02-26] MEDS: Lactated Ringer's 1,000 ML IV SCH ×4 (04:56→21:03)
[2018-02-26 07:58] LABS: BASO # 0.1 K/uL (0.0-0.2); BASO % 0.7 % (0.0-2.0); EOS % 0.3 % (0.0-4.0); LYMPH # 0.7 K/uL (1.0-4.3); LYMPH % 5.1 % (20.0-40.0); MEAN CELL VOLUME 87.4 fL (80.0-94.0); MEAN CORPUSCULAR HEMOGLOBIN 29.7 pg (27.0-31.0); MEAN PLATELET VOLUME 9.6 fL (7.2-11.7); MONO # 1.6 K/uL (0.0-0.8); MONO % 11.4 % (0.0-10.0); NEUT # 11.6 K/uL (1.8-7.0); NEUT % 82.5 % (50.0-75.0); NRBC % 0.1 % (0.0-2.0); PLATELET COUNT 156 K/uL (130-400); RBC 4.16 Mil/uL (4.40-5.90); RED CELL DISTRIBUTION WIDTH 14.2 % (11.5-14.5); WHITE BLOOD COUNT 14.1 K/uL (4.8-10.8)
[2018-02-26 08:11] LABS: HEMOGLOBIN 12.4 g/dL (12.0-18.0)
[2018-02-26 08:28] LABS: ALBUMIN 3.1 g/dL (3.5-5.0); ALT/SGPT 53 U/L (21-72); AST/SGOT 46 U/L (17-59); BLOOD UREA NITROGEN 19 mg/dL (9-20); CALCIUM 7.5 mg/dl (8.6-10.4); GFR NON-AFRICAN AMERICAN > 60; HDL CHOLESTEROL 17 mg/dL (30-70)
[2018-02-26 08:37] LABS: LDL CHOLESTEROL < 30 mg/dL (0-129)
--- NOTE | 2018-02-26 08:50 | RAD ---
Date of service: 02/25/2018 HISTORY: pre-op COMPARISON: Abdomen obstructive series 02/25/2018 6:46 p.m.. FINDINGS: LUNGS: No acute pulmonary disease bilaterally. PLEURA: No significant pleural effusion identified, no pneumothorax apparent. CARDIOVASCULAR: Normal. OSSEOUS STRUCTURES: No significant abnormalities. VISUALIZED UPPER ABDOMEN: Elevated right hemidiaphragm, etiology indeterminate. OTHER FINDINGS: None. IMPRESSION: Reiterated elevated right hemidiaphragm. No interval acute cardiopulmonary disease appreciable.
--- NOTE | 2018-02-26 09:05 | RAD ---
Date of service: 02/25/2018 PROCEDURE: Radiographs of the chest and abdomen (obstructive series) HISTORY: abd pain COMPARISON: No prior. TECHNIQUE: AP radiograph of the chest, with upright and supine radiographs of the abdomen. FINDINGS: CHEST: Lungs: Asymmetrical elevation of the right hemidiaphragm of unknown chronicity. Small right pleural effusion is suggested. Probable mild compressive atelectasis right lung base present. Cardiovascular: Cardiomegaly and mild pulmonary venous congestion Pleura: Small right pleural effusion. No pneumothorax. Other findings: None. ABDOMEN AND PELVIS: Bowel: Mostly small bowel air-fluid levels present few probably in colon as well nonspecific no dilated small large bowel loops seen to suggest a high-grade obstruction. Free air: None. Bones: Unremarkable. Other findings: A 5 x 8 mm oval opacity peripheral left hemipelvis of unclear significance IMPRESSION: Asymmetrically elevated right hemidiaphragm-chronicity unknown. Small right pleural effusion. Probable mild concomitant compressive atelectasis. No evidence of mechanical bowel obstruction. Nonspecific air-fluid levels as above. No free air Cardiomegaly and mild pulmonary venous congestion Other findings as above.
[2018-02-26 09:08] LABS: ANISOCYTOSIS SLIGHT; BANDS 2 % (0-2); LYMPHOCYTE 6 % (20-40); MONOCYTE 10 % (0-10); NEUTROPHIL 82 % (50-75); PLATELET ESTIMATE NORMAL (NORMAL); POIKILOCYTOSIS SLIGHT; TOTAL CELLS COUNTED 100
--- NOTE | 2018-02-26 09:42 | US ---
Date of service: 02/25/2018 HISTORY: URQ pain COMPARISON: None. TECHNIQUE: Sonographic evaluation of the abdomen. FINDINGS: LIVER: Measures 18.5 cm. Increased echogenicity of the liver parenchyma. No mass. No intrahepatic bile duct dilatation. GALLBLADDER: No cholelithiasis however the gallbladder wall appears thickened up to 5 mm and there may be an element of pericholecystic fluid present as well. Clinically correlate for possible cholecystitis however there is no reported sonographic Carrington sign. No sludge reported in the gallbladder lumen. COMMON BILE DUCT: Measures 4.8 mm. No stones. No dilatation. PANCREAS: Completely obscured by overlying bowel gas. RIGHT KIDNEY: Measures 12.6cm. Normal echogenicity. No calculus, mass, or hydronephrosis. Potential linear calcification lower pole right kidney cortex. LEFT KIDNEY: Measures 11.8cm. Normal echogenicity. No calculus, mass, or hydronephrosis. SPLEEN: Normal in size and contour, 10.2 cm. No mass. AORTA: No aneurysmal dilatation. IVC: Unremarkable. OTHER FINDINGS: None. IMPRESSION: 1. Hepatic steatosis or other infiltrative process noted diffusely. No focal hepatic mass or intrahepatic biliary dilatation. Normal directional portal venous and hepatic venous blood flow. 2. Somewhat thickened gallbladder wall is appreciate with limited pericholecystic fluid but no sonographic Carrington sign or cholelithiasis related. Clinically correlate for potential cholecystitis nevertheless. 3. Nonvisualization of the pancreas due to overlying bowel or stomach gas.
[2018-02-26] MEDS ORDERED: Midazolam 2 MG/2 ML VIAL ONE (10:26)
[2018-02-26] MEDS ORDERED: Propofol 10 mg/ml Inj (20 ML) ONE (10:26)
--- NOTE | 2018-02-26 10:46 | PCM.SURG1 ---
Surgeon's Initial Post Op Note - Surgeon's Notes Surgeon: Yusuf Johnson MD Engine Turner: NONE Type of Anesthesia: IV Sedation Pre-Operative Diagnosis: Acute cholecystitis Operative Findings: US showed a distended GB with thickwalled, pericholecystic fluid Post-Operative Diagnosis: Acute cholecystitis Operation Performed: Cholecystostomy tube placement 8.5 Fr Specimen/Specimens Removed: 20 cc of foul smelling bile Estimated Blood Loss: EBL {In ML}: 2 Blood Products Given: N/A Drains Used: Shahbaz Hunter Post-Op Condition: Fair Date of Surgery/Procedure: 02/26/18 Time of Surgery/Procedure: 10:40
--- NOTE | 2018-02-26 10:58 | CT ---
Date of service: 02/25/2018 PROCEDURE: CT Abdomen and Pelvis without intravenous contrast HISTORY: abd pain COMPARISON: Abdomen ultrasound 02/22/2018. TECHNIQUE: Helical CT of the abdomen and pelvis was performed without oral or intravenous contrast as per referring physician request. Coronal and sagittal reformats were generated. Contrast dose: None Radiation dose: Total exam DLP = 1204.30 mGy-cm. This CT exam was performed using one or more of the following dose reduction techniques: Automated exposure control, adjustment of the mA and/or kV according to patient size, and/or use of iterative reconstruction technique. FINDINGS: LOWER THORAX: Images through lung bases reveal mildly elevated right hemidiaphragm and compression atelectasis the right lower lobe and right middle lobe bases is also limited dependent atelectasis at the bilateral bases. No pleural effusions suspected with none on the left. Cardiomegaly. LIVER: Attenuation is seen throughout the liver compatible hepatic steatosis. Evaluation of the liver is compromised by lack of intravenous contrast. Hepatic steatosis appears somewhat heterogeneous making it difficult to evaluate for potential underlying masses. None are felt to be present however contrast CT, ultrasound or MRI can be utilized for added characterization of the liver. GALLBLADDER AND BILE DUCTS: Gallbladder is quite distended with mural thickening, prominent pericholecystic reaction and radiodense cholelithiasis at the level of the neck. Pattern is suggestive of cholecystitis. No radiodense choledocholithiasis. Follow-up ultrasonography is nevertheless recommended. PANCREAS: Limited sympathetic pericolic pancreatic reaction is seen approaching the neck and head, related to cholecystitis. Pancreatic duct is not identified. SPLEEN: Unremarkable. ADRENALS: Unremarkable. No mass. KIDNEYS AND URETERS: Unremarkable. No hydronephrosis. No solid mass. VASCULATURE: Unremarkable. No aortic aneurysm. BOWEL: Unremarkable. No obstruction. No gross mural thickening. Nonobstructive bowel gas pattern. Lack oral contrast limits evaluation the gastrointestinal tract. The stomach is filled with fluid diffusely, suggesting diarrhea. No mural thickening or pericolic reaction is appreciated to suggest colitis at this time. This may be sympathetic to cholecystitis. Occasional cecal diverticula are identified and are scattered at the descending colon and sigmoid segment as well. No pattern to suggest diverticulitis at this time. APPENDIX: Unremarkable. Normal appendix. PERITONEUM: Separate from right upper quadrant cholecystitis pattern, remaining perineum unremarkable. No free intra peritoneal gas identified throughout. No ascites. LYMPH NODES: Unremarkable. No enlarged lymph nodes. BLADDER: Unremarkable. REPRODUCTIVE: Unremarkable. BONES: No acute fracture. OTHER FINDINGS: None. IMPRESSION: 1. Cholecystitis with prominent pericholecystic reaction but no ascites or other fluid collection appreciable. No emphysematous change related or free intra peritoneal gas. Cholelithiasis. 2. Probable sympathetic diarrhea. No mural thickening is appreciated other than that sympathetic to the cholecystitis reaction cephalad to the hepatic flexure to suggest colitis. Occasional colonic diverticula without diverticulitis. 3. Hepatic steatosis. No overt biliary tree dilatation appreciated. Discordant preliminary report from [facility] (Impression No. 2), 02/25/2018.
[2018-02-26] MEDS ORDERED: Potassium & Sodium Phosphate PO ONE ×2 (12:35→14:20)
[2018-02-26] MEDS: Potassium Phosphate 30 MMOLE in Sodium Chloride 0.9% 250 ML IV ONE ×2 (13:35→14:02)
[2018-02-26] MEDS ORDERED: metroNIDAZOLE IV 500 mg/100 ml 500 MG/100 ML BAG IVPB SCH (14:00)
[2018-02-26] MEDS: metroNIDAZOLE IV 500 mg/100 ml 500 MG/100 ML BAG IVPB SCH (15:34)
--- NOTE | 2018-02-26 17:20 | CP.PCM.PN ---
<Brian Peacock - Last Filed: 02/26/18 17:16> Subjective - Date & Time of Evaluation Date of Evaluation: 02/26/18 Time of Evaluation: 17:16 - Subjective Subjective: Surgery Pt seen and examined. continues to have fever. Pt underwent cholecystostomy tube placement today. Tolerated it well. c/o pain and nausea. Objective - Vital Signs/Intake and Output Vital Signs (last 24 hours): Temp Pulse Resp BP Pulse Ox 100.3 F H 91 H 20 132/69 96 02/26/18 15:48 02/26/18 15:48 02/26/18 15:48 02/26/18 15:48 02/26/18 15:48 Intake and Output: 02/26/18 02/26/18 06:59 18:59 Intake Total 500 450 Output Total 800 Balance 500 -350 - Medications Medications: Current Medications Acetaminophen (Tylenol 325mg Tab) 650 mg PO Q6 PRN PRN Reason: Fever >100.4 F Lactated Ringer's (Lactated Ringer's) 1,000 mls @ 125 mls/hr IV .Q8H [facility]ANDA Last Admin: 02/26/18 12:45 Dose: Not Given Piperacillin Sod/Tazobactam Sod (Zosyn 3.375 Gm Iv Premix) 3.375 gm in 50 mls @ 100 mls/hr IVPB Q6H [facility]ANDA; Protocol Last Admin: 02/26/18 13:00 Dose: 100 mls/hr Potassium Phosphate 30 mmole/ (Sodium Chloride) 260 mls @ 63 mls/hr IV ONCE ONE Stop: 02/26/18 17:37 Last Admin: 02/26/18 13:35 Dose: 63 mls/hr Metronidazole (Flagyl) 500 mg in 100 mls @ 100 mls/hr IVPB Q8H [facility]ANDA; Protocol Last Admin: 02/26/18 15:34 Dose: 100 mls/hr Ibuprofen (Motrin Tab) 400 mg PO Q4 PRN PRN Reason: Fever >100.4 F Insulin Human Regular (Novolin R) 0 unit SC Q6H [facility]ANDA; Protocol Last Admin: 02/26/18 14:45 Dose: Not Given Morphine Sulfate (Morphine) 2 mg IVP Q4 PRN PRN Reason: Pain, severe (8-10) Morphine Sulfate (Morphine) 1 mg IVP Q4 PRN PRN Reason: Pain, moderate (4-7) Last Admin: 02/26/18 08:10 Dose: 1 mg Pantoprazole Sodium (Protonix Inj) 40 mg IVP DAILY [facility] Last Admin: 02/26/18 09:52 Dose: 40 mg Pneumococcal Polyvalent Vaccine (Pneumovax 23 Vaccine) 0.5 ml IM .ONCE ONE Stop: 02/27/18 10:01 Simethicone (Mylicon Chew Tab) 80 mg PO Q6 [facility] - Labs Labs: 02/26/18 07:45 02/26/18 07:45 PT 16.0 SECONDS (9.7-12.2) H 02/25/18 17:27 INR 1.5 02/25/18 17:27 APTT 32 SECONDS (21-34) 02/25/18 17:27 - Constitutional Appears: No Acute Distress - Head Exam Head Exam: ATRAUMATIC, NORMAL INSPECTION, NORMOCEPHALIC - Eye Exam Eye Exam: EOMI, Normal appearance, PERRL Pupil Exam: NORMAL ACCOMODATION, PERRL - ENT Exam ENT Exam: Mucous Membranes Moist, Normal Exam - Neck Exam Neck Exam: Full ROM, Normal Inspection. absent: Lymphadenopathy - Respiratory Exam Respiratory Exam: NORMAL BREATHING PATTERN - Cardiovascular Exam Cardiovascular Exam: REGULAR RHYTHM, +S1, +S2. absent: Murmur - GI/Abdominal Exam GI & Abdominal Exam: Soft, Tenderness. absent: Distended - Extremities Exam Extremities Exam: Full ROM, Normal Capillary Refill, Normal Inspection. absent: Joint Swelling, Pedal Edema - Back Exam Back Exam: NORMAL INSPECTION - Neurological Exam Neurological Exam: Alert, Awake, CN II-XII Intact, Normal Gait, Oriented x3 - Psychiatric Exam Psychiatric exam: Normal Affect, Normal Mood - Skin Skin Exam: Dry, Intact, Normal Color, Warm Assessment and Plan - Assessment and Plan (Free Text) Assessment: acute cholecystitis s/p mary ellen tube placement -Pain control -ABX -MOnitor output -monitor labs -cholecystectomy in 4-6 weeks. NIKITA Cabrera <Yfn Cabrera - Last Filed: 02/27/18 11:29> Objective - Vital Signs/Intake and Output Vital Signs (last 24 hours): Temp Pulse Resp BP Pulse Ox 98.1 F 76 20 149/72 95 02/27/18 07:58 02/27/18 09:08 10/03/18 07:58 02/27/18 07:58 02/27/18 07:58 Intake and Output: 02/27/18 02/27/18 06:59 18:59 Intake Total 2150 Output Total 220 Balance 1930 - Medications Medications: Current Medications Acetaminophen (Tylenol 325mg Tab) 650 mg PO Q6 PRN PRN Reason: Fever >100.4 F Lactated Ringer's (Lactated Ringer's) 1,000 mls @ 125 mls/hr IV .Q8H [facility] Last Admin: 02/27/18 07:59 Dose: 125 mls/hr Piperacillin Sod/Tazobactam Sod (Zosyn 3.375 Gm Iv Premix) 3.375 gm in 50 mls @ 100 mls/hr IVPB Q6H [facility]ANDA; Protocol Last Admin: 02/27/18 05:40 Dose: 100 mls/hr Metronidazole (Flagyl) 500 mg in 100 mls @ 100 mls/hr IVPB Q8H [facility]ANDA; Protocol Last Admin: 02/27/18 07:56 Dose: 100 mls/hr Ibuprofen (Motrin Tab) 400 mg PO Q4 PRN PRN Reason: Fever >100.4 F Insulin Human Regular (Novolin R) 0 unit SC Q6H [facility]ANDA; Protocol Last Admin: 02/27/18 08:45 Dose: Not Given Morphine Sulfate (Morphine) 2 mg IVP Q4 PRN PRN Reason: Pain, severe (8-10) Morphine Sulfate (Morphine) 1 mg IVP Q4 PRN PRN Reason: Pain, moderate (4-7) Last Admin: 02/26/18 23:48 Dose: 1 mg Pantoprazole Sodium (Protonix Inj) 40 mg IVP DAILY [facility] Last Admin: 02/27/18 09:28 Dose: 40 mg Simethicone (Mylicon Chew Tab) 80 mg PO Q6 [facility] Last Admin: 02/27/18 11:04 Dose: 80 mg - Labs Labs: 02/27/18 07:44 02/27/18 07:44 PT 16.0 SECONDS (9.7-12.2) H 02/25/18 17:27 INR 1.5 02/25/18 17:27 APTT 32 SECONDS (21-34) 02/25/18 17:27 Attending/Attestation - Attestation I have personally seen and examined this patient.: Yes I have fully participated in the care of the patient.: Yes I have reviewed all pertinent clinical information, including history, physical exam and plan: Yes Notes (Text): Pt was seen and examined at bedside Agree with above note and assessment Pt with Acute Cholecystitis with sepsis IR drainage of Gallbladder IV antibiotics NPO, IVF c.w current mx Plan d.w pt in detail Risk and benefit explained in detail.
[2018-02-26] MEDS: Simethicone 80 mg Chewtab PO SCH ×2 (18:31→23:47)
--- NOTE | 2018-02-26 20:45 | CP.PCM.PN ---
<Jeffrey Pedraza - Last Filed: 02/26/18 20:41> Subjective - Date & Time of Evaluation Date of Evaluation: 02/26/18 Time of Evaluation: 07:45 - Subjective Subjective: PGY-[address] Nichols service Patient is seen and examined at bedside. Patient is currently complaining of pain in the right upper quadrant of abdomen. Patient states feeling warm and states he has fevers and chills at this time. Patient says he can't stand up from bed due to abdominal pain. Patient denies nausea, vomiting, chest pain, shortness of breath. Patient denies any new episodes of diarrhea this morning. Patient denies any pain or burning at urination. Patient admits to back pain due to lying in his back for long period of time. Objective - Vital Signs/Intake and Output Vital Signs (last 24 hours): Temp Pulse Resp BP Pulse Ox 98.8 F 73 20 132/69 96 02/26/18 17:19 02/26/18 18:00 02/26/18 15:48 02/26/18 15:48 02/26/18 15:48 Intake and Output: 02/26/18 02/27/18 18:59 06:59 Intake Total 450 Output Total 800 Balance -350 - Medications Medications: Current Medications Acetaminophen (Tylenol 325mg Tab) 650 mg PO Q6 PRN PRN Reason: Fever >100.4 F Lactated Ringer's (Lactated Ringer's) 1,000 mls @ 125 mls/hr IV .Q8H [facility]AN[facility] Last Admin: 02/26/18 12:45 Dose: Not Given Piperacillin Sod/Tazobactam Sod (Zosyn 3.375 Gm Iv Premix) 3.375 gm in 50 mls @ 100 mls/hr IVPB Q6H [facility]ANDA; Protocol Last Admin: 02/26/18 18:31 Dose: 100 mls/hr Metronidazole (Flagyl) 500 mg in 100 mls @ 100 mls/hr IVPB Q8H [facility]; Protocol Last Admin: 02/26/18 15:34 Dose: 100 mls/hr Ibuprofen (Motrin Tab) 400 mg PO Q4 PRN PRN Reason: Fever >100.4 F Insulin Human Regular (Novolin R) 0 unit SC Q6H [facility]ANDA; Protocol Last Admin: 02/26/18 14:45 Dose: Not Given Morphine Sulfate (Morphine) 2 mg IVP Q4 PRN PRN Reason: Pain, severe (8-10) Morphine Sulfate (Morphine) 1 mg IVP Q4 PRN PRN Reason: Pain, moderate (4-7) Last Admin: 02/26/18 08:10 Dose: 1 mg Pantoprazole Sodium (Protonix Inj) 40 mg IVP DAILY [facility] Last Admin: 02/26/18 09:52 Dose: 40 mg Pneumococcal Polyvalent Vaccine (Pneumovax 23 Vaccine) 0.5 ml IM .ONCE ONE Stop: 02/27/18 10:01 Simethicone (Mylicon Chew Tab) 80 mg PO Q6 [facility] Last Admin: 02/26/18 18:31 Dose: 80 mg - Labs Labs: 02/26/18 07:45 02/26/18 07:45 PT 16.0 SECONDS (9.7-12.2) H 02/25/18 17:27 INR 1.5 02/25/18 17:27 APTT 32 SECONDS (21-34) 02/25/18 17:27 - Constitutional Appears: No Acute Distress - Head Exam Head Exam: ATRAUMATIC, NORMAL INSPECTION, NORMOCEPHALIC - Eye Exam Eye Exam: EOMI, Normal appearance Pupil Exam: NORMAL ACCOMODATION - ENT Exam ENT Exam: Mucous Membranes Dry, Normal Exam - Neck Exam Neck Exam: Full ROM - Respiratory Exam Respiratory Exam: Clear to Ausculation Bilateral, NORMAL BREATHING PATTERN. absent: Rales, Rhonchi, Wheezes - Cardiovascular Exam Cardiovascular Exam: REGULAR RHYTHM, +S1, +S2 - GI/Abdominal Exam GI & Abdominal Exam: Distended, Soft, Tenderness Additional comments: RUQ tenderness of light palpation - Extremities Exam Extremities Exam: Full ROM, Normal Inspection. absent: Tenderness - Back Exam Back Exam: Full ROM, NORMAL INSPECTION - Neurological Exam Neurological Exam: Alert, Awake, Oriented x3 - Psychiatric Exam Psychiatric exam: Normal Affect, Normal Mood - Skin Skin Exam: Dry, Intact, Normal Color, Warm Assessment and Plan - Assessment and Plan (Free Text) Plan: Abdominal pain likely secondary to Acute Cholecystitis -02/26 temperature: 103.2F , repeat temperature one hour later 102.6 F -Code sepsis called in the Emergency Dept 02/25 -Patient on telemetry -CT abd/pelvis showed acute cholecystitis, 5mm calcified stone in the neck of the gallbladder, hepatomegaly with fatty infiltration, pancolitis, the heart is enlarged, pulmonary vascular congestive changes, right lower lobe consolidation with air bronchograms consistent with pneumonia (official report pending) -Gallbladder US - somewhat thickened gallbladder wall is apprciate with limited pericholecystic fluid but no sonographic rodriguez sign or cholelithiasis related. Hepatic steatosis or other inflitrative process noted diffusely. No focal hepati c mass or intrahepatic biliary dilatation. Normal directional portal venous and hepatic venous blood flow. -CXR - elevated hemidiaphragm. No interval acute cardiopulmonary disease appreciable -F/U blood cultures, urine cultures, procalcitonin -Continue LR at 125cc/hr -Surgery consult - Dr Cabrera - pt has higher operative morbidity/mortality than typical acute cholecystitis pt would benefit from IR drainage PTC vs cholecystostomy tube with delayed lap mary ellen on an elective basis in 6-8 weeks - IR consult - Dr Johnson - Cholecystostomy tube placement 8.5 fr placed this morning 02/26. NAYLA drain. 20 cc of foul smelling bile removed. bile sent for cx. - Will follow up bile cx results - Meds: Zosyn 3.375mg IVPB Q6H Tylenol 650mg PO Q6H prn Simethicone 80mg PO Q6 Pancolitis -Antibiotics: Zosyn 3.375mg IVPB Q6H -Metronidazole 1gm IVPB Q 8hrs -C.diff toxin ordered - f/u -F/U stool culture, ova/parasites, fecal leukocytes -Continue IV hydration Abnormal UA -UA showed +2 protein, +1 glucose, +1 ketones, +3 blood, 11 RBC, occasional bacteria -urine culture - no growth final Electrolyte Abnormalities -Phos was 1.5, Potassium 3.4 - Neutra-Phosp given, Potassium chloride given to replete - follow up Am labs Left Bundle Branch Block -EKG on admission showed LBBB -Initial troponin was negative -Patient denies any chest pain or shortness of breath, denies any cardiac hi story -echo ordered - f/u results History of Diabetes Mellitus, Type 2 -Patient takes Metformin 1000mg PO BID -We will hold Metformin at this time -Low dose Insulin sliding scale Q6H -Accuchecks Q6H -F/U hemoglobin A1C - 7.5 Hypertension - 132/69, normotensive -will hold BP meds at this time GI/DVT ppx: -Protonix 40mg IVP daily -SCDs -will keep patient NPO, will evaluate tomorrow to ADAT. Plan discussed with Dr Magdalena Pedraza, PGY-1 <Christo Nichols - Last Filed: 03/18/18 16:08> Attending/Attestation - Attestation I have personally seen and examined this patient.: Yes I have fully participated in the care of the patient.: Yes I have reviewed all pertinent clinical information, including history, physical exam and plan: Yes Notes (Text): Abdominal pain likely secondary to Acute Cholecystitis Pancolitis
[2018-02-27] MEDS: metroNIDAZOLE IV 500 mg/100 ml 500 MG/100 ML BAG IVPB SCH ×3 (00:30→16:53)
[2018-02-27] MEDS: (Novolin R) Insulin Human Regular 100 units/ml vial SC SCH ×4 (03:06→21:35)
[2018-02-27] MEDS: Simethicone 80 mg Chewtab PO SCH ×3 (05:40→17:55)
[2018-02-27] MEDS: Piperacill/Tazo 3.375gm in Dex 3.375 GM/50 ML BAG IVPB SCH ×3 (05:40→18:01)
[2018-02-27 07:52] LABS: BASO # 0.1 K/uL (0.0-0.2); BASO % 0.7 % (0.0-2.0); EOS # 0.1 K/uL (0.0-0.7); EOS % 1.1 % (0.0-4.0); HEMOGLOBIN 11.4 g/dL (12.0-18.0); LYMPH # 0.9 K/uL (1.0-4.3); LYMPH % 9.9 % (20.0-40.0); MEAN CELL VOLUME 87.8 fL (80.0-94.0); MEAN CORPUSCULAR HEMOGLOBIN 30.2 pg (27.0-31.0); MEAN CORPUSCULAR HGB CONC 34.4 g/dL (33.0-37.0); MEAN PLATELET VOLUME 9.1 fL (7.2-11.7); MONO # 1.4 K/uL (0.0-0.8); MONO % 15.3 % (0.0-10.0); NEUT # 6.7 K/uL (1.8-7.0); NRBC % 0.1 % (0.0-2.0); PLATELET COUNT 168 K/uL (130-400); RBC 3.77 Mil/uL (4.40-5.90); RED CELL DISTRIBUTION WIDTH 14.3 % (11.5-14.5); WHITE BLOOD COUNT 9.1 K/uL (4.8-10.8)
[2018-02-27] MEDS: Lactated Ringer's 1,000 ML IV SCH ×3 (07:59→21:31)
[2018-02-27 08:39] LABS: ANISOCYTOSIS SLIGHT; EOSINOPHIL 1 % (0-4); HYPOCHROMIC SLIGHT; LYMPHOCYTE 12 % (20-40); MONOCYTE 16 % (0-10); NEUTROPHIL 71 % (50-75); PLATELET ESTIMATE NORMAL (NORMAL); POIKILOCYTOSIS SLIGHT; TOTAL CELLS COUNTED 100
[2018-02-27 08:40] LABS: TARGET CELLS SLIGHT
[2018-02-27 08:46] LABS: ALB/GLOB RATIO 0.9 (1.0-2.1); ALBUMIN 2.6 g/dL (3.5-5.0); ALT/SGPT 57 U/L (21-72); AST/SGOT 52 U/L (17-59); BLOOD UREA NITROGEN 18 mg/dL (9-20); CALCIUM 7.4 mg/dl (8.6-10.4); GFR NON-AFRICAN AMERICAN > 60
[2018-02-27] MEDS ORDERED: Pneumococcal 23-Valent Vaccine IM ONE (10:00)
--- NOTE | 2018-02-27 11:59 | CARD ---
APPROVED REPORT Date of service: 02/26/2018 EXAM: Two-dimensional and M-mode echocardiogram with Doppler and color Doppler. INDICATION LBBB RISK FACTORS Hypertension Diabetes 2D DIMENSIONS IVSd1.1 (0.7-1.1cm)Aortic Root (2D)2.8 (2.0-3.7cm) LVDd5.0 (3.9-5.9cm)PWd1.2 (0.7-1.1cm) LA [id number] (18-58mL)LVDs3.4 (2.5-4.0cm) FS (%) 32.6 %LVEF (%)60.8 (>50%) LVEF (Lechuga's)58 %IVC0.00 cm M-Mode DIMENSIONS Left Atrium (MM)2.80 (2.5-4.0cm)IVSd1.00 (0.7-1.1cm) Aortic Root3.43 (2.2-3.7cm)LVDd5.27 (4.0-5.6cm) Aortic Cusp Exc.2.07 (1.5-2.0cm)PWd1.18 (0.7-1.1cm) FS (%) 36 %LVDs3.39 (2.0-3.8cm) LVEF (%)65 (>50%) Mitral Valve MV E Nwitgyjl155.2cm/sMV A Wvburask988.4cm/sE/A ratio0.9 TDI Lateral E' Peak V7.77cm/sMedial E' Peak V5.45cm/sE/Lateral E'12.9 E/Medial E'18.4 Tricuspid Valve TR Peak [id number]/sTR Peak Gr.[id number] LEFT VENTRICLE The left ventricle is normal size. There is normal left ventricular wall thickness. The left ventricular function is normal. The left ventricular ejection fraction is within the normal range. There is normal LV segmental wall motion. Transmitral Doppler flow pattern is abnormal. RIGHT VENTRICLE The right ventricle is normal size. ATRIA The left atrium size is normal. AORTIC VALVE The aortic valve is normal in structure. MITRAL VALVE Mitral regurgitation is trace to mild. TRICUSPID VALVE There is mild tricuspid regurgitation. <Conclusion> Normal LV systolic function. Diastolic dysfunction. Normal chamber size. Trace to midl MR. Mild TR
--- NOTE | 2018-02-27 12:35 | CARD ---
APPROVED REPORT Date of service: 02/25/2018 EKG Measurement Heart [id number] <Conclusion> Sinus tachycardia Left axis deviation Left bundle branch block Abnormal ECG
--- NOTE | 2018-02-27 13:33 | US ---
PROCEDURE: Date of procedure: 02/26/2018 Procedure: 1. Percutaneous Cholecystostomy tube placement Medications: The patient was sedated by the anesthesiologist along with physiologic monitoring. 8 cubic centimeters lidocaine 2 percent HISTORY: Acute cholecystitis TECHNIQUE: Following informed consent the patient right abdomen was marked. The patient was placed supine on the CT table and procedure time-out was called. Ultrasound showed distended gallbladder. At the patient sedated, the skin was anesthetized with 2 percent lidocaine. Under direct ultrasound guidance, a [employer] catheter was advanced percutaneously into the gallbladder. Upon return of bile, an 035 wire was advanced into the gallbladder. The tract was dilated to accommodate 8.5 Welsh drainage catheter which was formed within the gallbladder. Position of the catheter was confirmed with ultrasound. A dressing applied. IMPRESSION: Percutaneous placement of an 8.5 Fr cholecystostomy tube.
[2018-02-27] MEDS ORDERED: Potassium Phosphate 15 MMOLE in Sodium Chloride 0.9% 250 ML IVPB ONE (16:00)
--- NOTE | 2018-02-27 16:21 | CP.PCM.PN ---
<AyushBrian - Last Filed: 02/27/18 16:27> Subjective - Date & Time of Evaluation Date of Evaluation: 02/27/18 Time of Evaluation: 16:16 - Subjective Subjective: Surgery Pt seen and examined. Pt had IR drain cholecystostomy yesterday. Tolerated it well. Pt had fever overnight. c/o abd pain. Denies nausea, vomiting, CP, SOB. Voiding. Objective - Vital Signs/Intake and Output Vital Signs (last 24 hours): Temp Pulse Resp BP Pulse Ox 99.8 F H 74 20 146/76 94 L 02/27/18 15:00 02/27/18 15:00 02/27/18 15:00 02/27/18 15:00 02/27/18 15:00 Intake and Output: 02/27/18 02/27/18 06:59 18:59 Intake Total 2150 1300 Output Total 220 650 Balance 1930 650 - Medications Medications: Current Medications Acetaminophen (Tylenol 325mg Tab) 650 mg PO Q6 PRN PRN Reason: Fever >100.4 F Lactated Ringer's (Lactated Ringer's) 1,000 mls @ 125 mls/hr IV .Q8H [facility] Last Admin: 02/27/18 12:06 Dose: Not Given Piperacillin Sod/Tazobactam Sod (Zosyn 3.375 Gm Iv Premix) 3.375 gm in 50 mls @ 100 mls/hr IVPB Q6H [facility]; Protocol Last Admin: 02/27/18 11:32 Dose: 100 mls/hr Metronidazole (Flagyl) 500 mg in 100 mls @ 100 mls/hr IVPB Q8H [facility]; Protocol Last Admin: 02/27/18 07:56 Dose: 100 mls/hr Potassium Phosphate 15 mmole/ (Sodium Chloride) 255 mls @ 42.5 mls/hr IVPB ONCE ONE Stop: 02/27/18 21:59 Ibuprofen (Motrin Tab) 400 mg PO Q4 PRN PRN Reason: Fever >100.4 F Insulin Human Regular (Novolin R) 0 unit SC ACHS [facility]; Protocol Morphine Sulfate (Morphine) 2 mg IVP Q4 PRN PRN Reason: Pain, severe (8-10) Morphine Sulfate (Morphine) 1 mg IVP Q4 PRN PRN Reason: Pain, moderate (4-7) Last Admin: 02/26/18 23:48 Dose: 1 mg Pantoprazole Sodium (Protonix Inj) 40 mg IVP DAILY [facility] Last Admin: 02/27/18 09:28 Dose: 40 mg Simethicone (Mylicon Chew Tab) 80 mg PO Q6 [facility] Last Admin: 02/27/18 11:04 Dose: 80 mg - Labs Labs: 02/27/18 07:44 02/27/18 07:44 PT 16.0 SECONDS (9.7-12.2) H 02/25/18 17:27 INR 1.5 02/25/18 17:27 APTT 32 SECONDS (21-34) 02/25/18 17:27 - Constitutional Appears: No Acute Distress - Head Exam Head Exam: ATRAUMATIC, NORMAL INSPECTION, NORMOCEPHALIC - Eye Exam Eye Exam: EOMI, Normal appearance, PERRL Pupil Exam: NORMAL ACCOMODATION, PERRL - ENT Exam ENT Exam: Mucous Membranes Moist, Normal Exam - Neck Exam Neck Exam: Full ROM, Normal Inspection. absent: Lymphadenopathy - Respiratory Exam Respiratory Exam: NORMAL BREATHING PATTERN - Cardiovascular Exam Cardiovascular Exam: REGULAR RHYTHM - GI/Abdominal Exam GI & Abdominal Exam: Soft, Tenderness. absent: Distended, Firm, Guarding Additional comments: IR drain in place. no signs of infection. SS fluids 400cc/24hrs. - Extremities Exam Extremities Exam: Full ROM, Normal Capillary Refill, Normal Inspection. absent: Joint Swelling, Pedal Edema - Back Exam Back Exam: NORMAL INSPECTION - Neurological Exam Neurological Exam: Alert, Awake, CN II-XII Intact, Normal Gait, Oriented x3 - Psychiatric Exam Psychiatric exam: Normal Affect, Normal Mood - Skin Skin Exam: Warm Assessment and Plan - Assessment and Plan (Free Text) Assessment: acute cholecystitis POD 1 s/p mary ellen tube placement 400cc/24hrs ss -Monitor output -Diet as tolerated -Pain control -IV ABX, recommend ID -MOnitor output -monitor labs -cholecystectomy in 4-6 weeks. NIKITA Cabrera <Yfn Cabrera - Last Filed: 03/02/18 18:40> Objective - Vital Signs/Intake and Output Vital Signs (last 24 hours): Temp Pulse Resp BP Pulse Ox 98.2 F 67 20 154/79 H 96 03/01/18 15:00 03/01/18 15:00 03/01/18 15:00 03/01/18 15:00 03/01/18 15:00 - Labs Labs: 03/01/18 07:20 03/01/18 07:20 PT 16.0 SECONDS (9.7-12.2) H 02/25/18 17:27 INR 1.5 02/25/18 17:27 APTT 32 SECONDS (21-34) 02/25/18 17:27 Attending/Attestation - Attestation I have personally seen and examined this patient.: Yes I have fully participated in the care of the patient.: Yes I have reviewed all pertinent clinical information, including history, physical exam and plan: Yes Notes (Text): Pt was seen and examined at bedside Agree with above note and assessment Pt with Acute cholecystitis and s/p Cholecystostomy tube Improving clinically c.w IV antibiotics repeat labs in am Plan d.w pt in detail
--- NOTE | 2018-02-27 21:35 | CP.PCM.PN ---
<Jeffrey Pedraza - Last Filed: 02/27/18 21:29> Subjective - Date & Time of Evaluation Date of Evaluation: 02/27/18 Time of Evaluation: 07:05 - Subjective Subjective: Pgy-[address] Nichols service Patient is seen and examined at bedside. Patient states having some stabbing- like pain, 7/10, mostly located on right upper quadrant. Patient denies fever, chills, nausea, vomiting, diarrhea or constipation. Patient admits not having gone to the bathroom for 3 days. Patient denies headache, dizziness or back pain. NAYLA pain is in place. Pain denies having pain in area where tube is inserted. as per nurse, output of drain during evening shift was 120cc, previous shift output was 100 cc. At time of encounter, output from drain was minimal. Patient is out of bed and ambulating. Objective - Vital Signs/Intake and Output Vital Signs (last 24 hours): Temp Pulse Resp BP Pulse Ox 99.1 F 75 20 146/75 97 02/27/18 20:19 02/27/18 20:19 02/27/18 20:19 02/27/18 20:19 02/27/18 20:19 Intake and Output: 02/27/18 02/28/18 18:59 06:59 Intake Total 1300 Output Total 650 Balance 650 - Medications Medications: Current Medications Acetaminophen (Tylenol 325mg Tab) 650 mg PO Q6 PRN PRN Reason: Fever >100.4 F Lactated Ringer's (Lactated Ringer's) 1,000 mls @ 125 mls/hr IV .Q8H [facility] Last Admin: 02/27/18 12:06 Dose: Not Given Piperacillin Sod/Tazobactam Sod (Zosyn 3.375 Gm Iv Premix) 3.375 gm in 50 mls @ 100 mls/hr IVPB Q6H [facility]; Protocol Last Admin: 02/27/18 18:01 Dose: 100 mls/hr Metronidazole (Flagyl) 500 mg in 100 mls @ 100 mls/hr IVPB Q8H [facility]; Protocol Last Admin: 02/27/18 16:53 Dose: 100 mls/hr Potassium Phosphate 15 mmole/ (Sodium Chloride) 255 mls @ 42.5 mls/hr IVPB ONCE ONE Stop: 02/27/18 21:59 Last Admin: 02/27/18 17:00 Dose: 42.5 mls/hr Ibuprofen (Motrin Tab) 400 mg PO Q4 PRN PRN Reason: Fever >100.4 F Insulin Human Regular (Novolin R) 0 unit SC ACHS [facility]; Protocol Last Admin: 02/27/18 17:25 Dose: 1 unit Morphine Sulfate (Morphine) 2 mg IVP Q4 PRN PRN Reason: Pain, severe (8-10) Morphine Sulfate (Morphine) 1 mg IVP Q4 PRN PRN Reason: Pain, moderate (4-7) Last Admin: 02/26/18 23:48 Dose: 1 mg Pantoprazole Sodium (Protonix Inj) 40 mg IVP DAILY [facility] Last Admin: 02/27/18 09:28 Dose: 40 mg Simethicone (Mylicon Chew Tab) 80 mg PO Q6 [facility] Last Admin: 02/27/18 17:55 Dose: 80 mg - Labs Labs: 02/27/18 07:44 02/27/18 07:44 PT 16.0 SECONDS (9.7-12.2) H 02/25/18 17:27 INR 1.5 02/25/18 17:27 APTT 32 SECONDS (21-34) 02/25/18 17:27 - Constitutional Appears: Non-toxic, No Acute Distress - Head Exam Head Exam: NORMAL INSPECTION, NORMOCEPHALIC - Eye Exam Eye Exam: EOMI, Normal appearance - ENT Exam ENT Exam: Normal Exam - Neck Exam Neck Exam: Full ROM, Normal Inspection - Respiratory Exam Respiratory Exam: Clear to Ausculation Bilateral, NORMAL BREATHING PATTERN. absent: Accessory Muscle Use, Wheezes, Respiratory Distress - Cardiovascular Exam Cardiovascular Exam: REGULAR RHYTHM, +S1, +S2 - GI/Abdominal Exam GI & Abdominal Exam: Distended, Soft, Tenderness Additional comments: RUQ tenderness NAYLA drain placed in RUQ - Extremities Exam Extremities Exam: Full ROM, Normal Inspection - Back Exam Back Exam: NORMAL INSPECTION - Neurological Exam Neurological Exam: Alert, Awake, Oriented x3 - Psychiatric Exam Psychiatric exam: Normal Affect, Normal Mood - Skin Skin Exam: Intact, Normal Color, Warm Assessment and Plan - Assessment and Plan (Free Text) Plan: Abdominal pain likely secondary to Acute Cholecystitis -02/26 temperature: 103.2F , repeat temperature one hour later 102.6 F -Code sepsis called in the Emergency Dept 02/25 -Patient on telemetry -CT abd/pelvis showed acute cholecystitis, 5mm calcified stone in the neck of the gallbladder, hepatomegaly with fatty infiltration, pancolitis, the heart is enlarged, pulmonary vascular congestive changes, right lower lobe consolidation with air bronchograms consistent with pneumonia (official report pending) -Gallbladder US - somewhat thickened gallbladder wall is apprciate with limited pericholecystic fluid but no sonographic rodriguez sign or cholelithiasis related. Hepatic steatosis or other inflitrative process noted diffusely. No focal hepatic mass or intrahepatic biliary dilatation. Normal directional portal venous and hepatic venous blood flow. -CXR - elevated hemidiaphragm. No interval acute cardiopulmonary disease appreciable -F/U blood cultures, urine cultures - no growth - bile fluid culture - gram negative rods -Continue LR at 125cc/hr -Surgery consult - Dr Cabrera - pt has higher operative morbidity/mortality than typical acute cholecystitis pt would benefit from IR drainage PTC vs cholecystostomy tube with delayed lap mary ellen on an elective basis in 6-8 weeks - 02/27 - continue to monitor output, recommending ID consult, cholecystectomy in 4-6 weeks, diet as tolerated, pain control. - IR consult - Dr Johnson - Cholecystostomy tube placement 8.5 fr placed this morning 02/26. NAYLA drain. 20 cc of foul smelling bile removed. bile sent for cx. ID consult placed - Dr Mills - help is appreciated, will follow recs - Meds: Zosyn 3.375mg IVPB Q6H Tylenol 650mg PO Q6H prn Simethicone 80mg PO Q6 Pancolitis -Antibiotics: Zosyn 3.375mg IVPB Q6H -Metronidazole 1gm IVPB Q 8hrs -C.diff toxin ordered - f/u -F/U stool culture, ova/parasites, fecal leukocytes -Continue IV hydration Abnormal UA -UA showed +2 protein, +1 glucose, +1 ketones, +3 blood, 11 RBC, occasional bacteria -urine culture - no growth final Electrolyte Abnormalities -Phos was 2.0, Potassium 3.7 - follow up Am labs Left Bundle Branch Block -EKG on admission showed LBBB -Initial troponin was negative -Patient denies any chest pain or shortness of breath, denies any cardiac history -echo ordered - f/u results History of Diabetes Mellitus, Type 2 -Patient takes Metformin 1000mg PO BID -We will hold Metformin at this time -Low dose Insulin sliding scale -Accuchecks ACHS -F/U hemoglobin A1C - 7.5 Hypertension - 146/75, normotensive -will hold BP meds at this time GI/DVT ppx: -Protonix 40mg IVP daily -SCDs -clear diet, ADAT Plan discussed with Dr Magdalena Pedraza, PGY-1 <Christo Nichols - Last Filed: 03/18/18 16:07> Attending/Attestation - Attestation I have personally seen and examined this patient.: Yes I have fully participated in the care of the patient.: Yes I have reviewed all pertinent clinical information, including history, physical exam and plan: Yes Notes (Text): Abdominal pain likely secondary to Acute Cholecystitis Pancolitis
[2018-02-28] MEDS: metroNIDAZOLE IV 500 mg/100 ml 500 MG/100 ML BAG IVPB SCH ×4 (00:14→23:47)
[2018-02-28] MEDS: Piperacill/Tazo 3.375gm in Dex 3.375 GM/50 ML BAG IVPB SCH (00:14)
[2018-02-28] MEDS ORDERED: Piperacillin/Tazobact 3.375 GM in Sodium Chloride 0.9% 100 ML IVPB SCH (04:45)
[2018-02-28] MEDS: (Novolin R) Insulin Human Regular 100 units/ml vial SC SCH ×4 (07:00→21:37)
[2018-02-28 07:45] LABS: BASO # 0.1 K/uL (0.0-0.2); BASO % 0.5 % (0.0-2.0); EOS # 0.2 K/uL (0.0-0.7); EOS % 2.3 % (0.0-4.0); HEMOGLOBIN 11.6 g/dL (12.0-18.0); LYMPH # 1.3 K/uL (1.0-4.3); LYMPH % 12.9 % (20.0-40.0); MEAN CELL VOLUME 88.2 fL (80.0-94.0); MEAN CORPUSCULAR HEMOGLOBIN 29.8 pg (27.0-31.0); MEAN CORPUSCULAR HGB CONC 33.8 g/dL (33.0-37.0); MEAN PLATELET VOLUME 8.9 fL (7.2-11.7); MONO # 1.5 K/uL (0.0-0.8); MONO % 14.6 % (0.0-10.0); NEUT # 7.2 K/uL (1.8-7.0); NEUT % 69.7 % (50.0-75.0); RBC 3.91 Mil/uL (4.40-5.90); RED CELL DISTRIBUTION WIDTH 14.4 % (11.5-14.5); WHITE BLOOD COUNT 10.3 K/uL (4.8-10.8)
[2018-02-28] MEDS ORDERED: guaiFENesin 100 mg/5 ml Syrup UD PO PRN (07:59)
[2018-02-28 09:08] LABS: ALB/GLOB RATIO 0.9 (1.0-2.1); ALBUMIN 2.8 g/dL (3.5-5.0); ALT/SGPT 69 U/L (21-72); AST/SGOT 53 U/L (17-59); BLOOD UREA NITROGEN 15 mg/dL (9-20); CALCIUM 7.9 mg/dl (8.6-10.4); GFR NON-AFRICAN AMERICAN > 60
[2018-02-28] MEDS ORDERED: Albuterol-Ipratrop 3 mg / 0.5 (3 ml) UD INH PRN (09:37)
--- NOTE | 2018-02-28 09:38 | CP.PCM.PN ---
<CiaraFrank fenton Marianna - Last Filed: 02/28/18 09:33> Subjective - Date & Time of Evaluation Date of Evaluation: 02/28/18 Time of Evaluation: 07:04 - Subjective Subjective: General Surgery: Dr Cabrera PT S&E. CURLYEO. Afebrile, VSS. Denies N/V. Still with mild abdominal pain but improving. Passing flatus. LAst BM yesterday. On IV abx Objective - Vital Signs/Intake and Output Vital Signs (last 24 hours): Temp Pulse Resp BP Pulse Ox 98.6 F 75 20 140/77 96 02/28/18 08:02 02/28/18 08:02 02/28/18 08:02 02/28/18 08:02 02/28/18 08:02 Intake and Output: 02/28/18 02/28/18 06:59 18:59 Intake Total 1650 1150 Output Total 960 60 Balance 690 1090 - Medications Medications: Current Medications Acetaminophen (Tylenol 325mg Tab) 650 mg PO Q6 PRN PRN Reason: Fever >100.4 F Docusate Sodium (Colace) 100 mg PO BID [facility] Guaifenesin (Robitussin) 100 mg PO Q4H PRN PRN Reason: Cough Metronidazole (Flagyl) 500 mg in 100 mls @ 100 mls/hr IVPB Q8H [facility]; Protocol Last Admin: 02/28/18 08:26 Dose: 100 mls/hr Piperacillin Sod/Tazobactam (Sod 3.375 gm/ Sodium Chloride) 100 mls @ 100 mls/hr IVPB Q6H [facility]; Protocol Ibuprofen (Motrin Tab) 400 mg PO Q4 PRN PRN Reason: Fever >100.4 F Insulin Human Regular (Novolin R) 0 unit SC ACHS [facility]; Protocol Last Admin: 02/27/18 21:35 Dose: Not Given Pantoprazole Sodium (Protonix Inj) 40 mg IVP DAILY [facility] Last Admin: 02/27/18 09:28 Dose: 40 mg Simethicone (Mylicon Chew Tab) 80 mg PO QID PRN PRN Reason: gas pain - Labs Labs: 02/28/18 07:35 02/28/18 07:35 PT 16.0 SECONDS (9.7-12.2) H 10/01/18 17:27 INR 1.5 02/25/18 17:27 APTT 32 SECONDS (21-34) 02/25/18 17:27 - Constitutional Appears: Non-toxic, No Acute Distress - Eye Exam Eye Exam: absent: Scleral icterus - ENT Exam ENT Exam: Mucous Membranes Moist - Respiratory Exam Respiratory Exam: absent: Accessory Muscle Use, Respiratory Distress - Cardiovascular Exam Cardiovascular Exam: REGULAR RHYTHM. absent: Tachycardia - GI/Abdominal Exam GI & Abdominal Exam: Soft. absent: Distended, Firm, Tenderness - Extremities Exam Extremities Exam: absent: Pedal Edema Assessment and Plan - Assessment and Plan (Free Text) Assessment: 62M with sepsis 2/2 acute cholecystitis; resolving s/p IR cholecystostomy tube Plan: cont abx adv to low fat diet clear for d/c on abx as per ID no plans for surgical intervention currently, elective cholecystectomy in 6-8 weeks d/w Dr Rick Urbina, PGY4 <Yfn Cabrera B - Last Filed: 03/02/18 18:39> Objective - Vital Signs/Intake and Output Vital Signs (last 24 hours): Temp Pulse Resp BP Pulse Ox 98.2 F 67 20 154/79 H 96 03/01/18 15:00 03/01/18 15:00 03/01/18 15:00 03/01/18 15:00 03/01/18 15:00 - Labs Labs: 03/01/18 07:20 03/01/18 07:20 PT 16.0 SECONDS (9.7-12.2) H 02/25/18 17:27 INR 1.5 02/25/18 17:27 APTT 32 SECONDS (21-34) 02/25/18 17:27 Attending/Attestation - Attestation I have personally seen and examined this patient.: Yes I have fully participated in the care of the patient.: Yes I have reviewed all pertinent clinical information, including history, physical exam and plan: Yes Notes (Text): Pt was seen and examined at bedside Agree with above note and assessment Pt with Acute Cholecystitis and s/p Cholecystostomy tube Pt is improving clinically Dc plan c.w current mx Plan d.w pt in detail
[2018-02-28] MEDS: Simethicone 80 mg Chewtab PO PRN (10:16)
[2018-02-28] MEDS: Piperacillin/Tazobact 3.375 GM in Sodium Chloride 0.9% 100 ML IVPB SCH ×2 (11:40→18:03)
[2018-02-28] MEDS ORDERED: guaiFENesin DM 100 mg-10 mg/5 ml UD PO PRN (13:11)
--- NOTE | 2018-02-28 14:49 | CP.PCM.CON ---
History of Present Illness - History of Present Illness History of Present Illness: dictated Past Patient History - Past Medical History & Family History Past Medical History?: Yes - Past Social History Smoking Status: Former Smoker - CARDIAC Hx Hypertension: Yes - ENDOCRINE/METABOLIC Hx Diabetes Mellitus Type 2: Yes - MUSCULOSKELETAL/RHEUMATOLOGICAL Hx Falls: No - PSYCHIATRIC Hx Substance Use: No - SURGICAL HISTORY Hx Surgeries: No - ANESTHESIA Hx Anesthesia: No Meds Allergies/Adverse Reactions: Allergies Allergy/AdvReac Type Severity Reaction Status Date / Time No Known Allergies Allergy Verified 02/25/18 16:45 - Medications Medications: Current Medications Acetaminophen (Tylenol 325mg Tab) 650 mg PO Q6 PRN PRN Reason: Fever >100.4 F Albuterol/Ipratropium (Duoneb 3 Mg/0.5 Mg (3 Ml) Ud) 3 ml INH RQ4 PRN PRN Reason: Cough Docusate Sodium (Colace) 100 mg PO BID [facility] Last Admin: 02/28/18 10:21 Dose: 100 mg Guaifenesin (Robitussin) 100 mg PO Q4H PRN PRN Reason: Cough Last Admin: 02/28/18 10:15 Dose: 100 mg Guaifenesin/Dextromethorphan (Robitussin Dm) 5 ml PO Q4H PRN PRN Reason: Cough Metronidazole (Flagyl) 500 mg in 100 mls @ 100 mls/hr IVPB Q8H [facility]; Protocol Last Admin: 02/28/18 08:26 Dose: 100 mls/hr Piperacillin Sod/Tazobactam (Sod 3.375 gm/ Sodium Chloride) 100 mls @ 100 mls/hr IVPB Q6H [facility]; Protocol Last Admin: 02/28/18 11:40 Dose: 100 mls/hr Ibuprofen (Motrin Tab) 400 mg PO Q4 PRN PRN Reason: Fever >100.4 F Insulin Human Regular (Novolin R) 0 unit SC ACHS [facility]; Protocol Last Admin: 02/28/18 11:28 Dose: 3 unit Pantoprazole Sodium (Protonix Inj) 40 mg IVP DAILY [facility] Last Admin: 02/28/18 10:17 Dose: 40 mg Simethicone (Mylicon Chew Tab) 80 mg PO QID PRN PRN Reason: gas pain Last Admin: 02/28/18 10:16 Dose: 80 mg Results - Vital Signs Recent Vital Signs: Last Vital Signs Temp 98.6 F 02/28/18 08:02 Pulse 75 02/28/18 08:02 Resp 20 02/28/18 08:02 BP 140/77 02/28/18 08:02 Pulse Ox 96 02/28/18 08:02 - Labs Result Diagrams: 02/28/18 07:35 02/28/18 07:35 Labs: Laboratory Results - last 24 hr 02/27/18 02/27/18 02/28/18 16:03 20:27 07:35 WBC 10.3 RBC 3.91 L Hgb 11.6 L Hct 34.5 L MCV 88.2 MCH 29.8 MCHC 33.8 RDW 14.4 Plt Count 229 MPV 8.9 Neut % (Auto) 69.7 Lymph % (Auto) 12.9 L [place] % (Auto) 14.6 H Eos % (Auto) 2.3 Baso % (Auto) 0.5 Neut # (Auto) 7.2 H Lymph # (Auto) 1.3 [place] # (Auto) 1.5 H Eos # (Auto) 0.2 Baso # (Auto) 0.1 Sodium Potassium Chloride Carbon Dioxide Anion Gap BUN Creatinine Est GFR ( Amer) Est GFR (Non-Af Amer) POC Glucose (mg/dL) 199 H 188 H Random Glucose Calcium Phosphorus Magnesium Total Bilirubin AST ALT Alkaline Phosphatase Total Protein Albumin Globulin Albumin/Globulin Ratio 02/28/18 02/28/18 07:35 11:11 WBC RBC Hgb Hct MCV MCH MCHC RDW Plt Count MPV Neut % (Auto) Lymph % (Auto) [place] % (Auto) Eos % (Auto) Baso % (Auto) Neut # (Auto) Lymph # (Auto) [place] # (Auto) Eos # (Auto) Baso # (Auto) Sodium 138 Potassium 3.8 Chloride 103 Carbon Dioxide 26 Anion Gap 12 BUN 15 Creatinine 0.8 Est GFR ( Amer) > 60 Est GFR (Non-Af Amer) > 60 POC Glucose (mg/dL) 258 H Random Glucose 159 H Calcium 7.9 L Phosphorus 2.5 Magnesium 2.4 H Total Bilirubin 1.1 AST 53 ALT 69 Alkaline Phosphatase 105 Total Protein 5.8 L Albumin 2.8 L Globulin 3.0 Albumin/Globulin Ratio 0.9 L
--- NOTE | 2018-02-28 23:18 | CP.PCM.PN ---
<Susu Ryder P - Last Filed: 02/28/18 23:11> Subjective - Date & Time of Evaluation Date of Evaluation: 02/28/18 Time of Evaluation: 08:00 - Subjective Subjective: PGY-[address] Nichols. Patient was seen and examined at bedside. Patient complains of dry cough that kept him up last night. Admits to mild abdominal pain surrounding drain site. 60cc of sanguineous fluid drained from RUQ overnight. Patient tolerating liquid diet. Denies fever, chills, nausea, vomiting, chest pain, shortness of breath. Objective - Vital Signs/Intake and Output Vital Signs (last 24 hours): Temp Pulse Resp BP Pulse Ox 98.7 F 68 20 149/70 95 02/28/18 15:57 02/28/18 15:57 02/28/18 15:57 02/28/18 15:57 02/28/18 15:57 Intake and Output: 02/28/18 03/01/18 18:59 06:59 Intake Total 1900 680 Output Total 650 40 Balance 1250 640 - Medications Medications: Current Medications Acetaminophen (Tylenol 325mg Tab) 650 mg PO Q6 PRN PRN Reason: Fever >100.4 F Albuterol/Ipratropium (Duoneb 3 Mg/0.5 Mg (3 Ml) Ud) 3 ml INH RQ4 PRN PRN Reason: Cough Docusate Sodium (Colace) 100 mg PO BID [facility] Last Admin: 02/28/18 17:30 Dose: 100 mg Guaifenesin/Dextromethorphan (Robitussin Dm) 5 ml PO Q4H PRN PRN Reason: Cough Last Admin: 02/28/18 21:51 Dose: 5 ml Metronidazole (Flagyl) 500 mg in 100 mls @ 100 mls/hr IVPB Q8H [facility]; Protocol Last Admin: 02/28/18 16:28 Dose: 100 mls/hr Piperacillin Sod/Tazobactam (Sod 3.375 gm/ Sodium Chloride) 100 mls @ 100 mls/hr IVPB Q6H [facility]; Protocol Last Admin: 02/28/18 18:03 Dose: 100 mls/hr Ciprofloxacin (Cipro 400mg/200ml Dsw) 400 mg in 200 mls @ 133 mls/hr IVPB Q12H [facility]; Protocol Ibuprofen (Motrin Tab) 400 mg PO Q4 PRN PRN Reason: Fever >100.4 F Insulin Human Regular (Novolin R) 0 unit SC ACHS [facility]; Protocol Last Admin: 02/28/18 21:37 Dose: Not Given Pantoprazole Sodium (Protonix Inj) 40 mg IVP DAILY [facility] Last Admin: 02/28/18 10:17 Dose: 40 mg Simethicone (Mylicon Chew Tab) 80 mg PO QID PRN PRN Reason: gas pain Last Admin: 02/28/18 10:16 Dose: 80 mg - Labs Labs: 02/28/18 07:35 02/28/18 07:35 PT 16.0 SECONDS (9.7-12.2) H 02/25/18 17:27 INR 1.5 02/25/18 17:27 APTT 32 SECONDS (21-34) 02/25/18 17:27 - Constitutional Appears: No Acute Distress - Head Exam Head Exam: ATRAUMATIC, NORMOCEPHALIC - Eye Exam Eye Exam: EOMI, PERRL - ENT Exam ENT Exam: Mucous Membranes Moist - Neck Exam Neck Exam: Full ROM - Respiratory Exam Respiratory Exam: Clear to Ausculation Bilateral. absent: Rales, Rhonchi, Wheezes - Cardiovascular Exam Cardiovascular Exam: REGULAR RHYTHM, +S1, +S2 - GI/Abdominal Exam GI & Abdominal Exam: Tenderness (Ruq), Normal Bowel Sounds Additional comments: Drain site clean, dry and dressing intact. - Extremities Exam Extremities Exam: Full ROM. absent: Pedal Edema, Tenderness - Neurological Exam Neurological Exam: Alert, Awake, Oriented x3 - Psychiatric Exam Psychiatric exam: Normal Affect, Normal Mood - Skin Skin Exam: Dry, Intact, Normal Color, Warm Assessment and Plan - Assessment and Plan (Free Text) Plan: Abdominal pain likely secondary to Acute Cholecystitis -CT abd/pelvis showed acute cholecystitis, 5mm calcified stone in the neck of the gallbladder, hepatomegaly with fatty infiltration, pancolitis, the heart is enlarged, pulmonary vascular congestive changes, right lower lobe consolidation with air bronchograms consistent with pneumonia (official report pending) -Gallbladder US - somewhat thickened gallbladder wall is apprciate with limited pericholecystic fluid but no sonographic rodriguez sign or cholelithiasis related. Hepatic steatosis or other inflitrative process noted diffusely. No focal hepatic mass or intrahepatic biliary dilatation. Normal directional portal venous and hepatic venous blood flow. -CXR - elevated hemidiaphragm. No interval acute cardiopulmonary disease appreciable -F/U blood cultures, urine cultures - no growth - bile fluid culture - Ecoli, Klebsiella pneumoniae sp -Surgery consult - Dr Cabrera - pt has higher operative morbidity/mortality than typical acute cholecystitis pt would benefit from IR drainage PTC vs cholecystostomy tube with delayed lap mary ellen on an elective basis in 6-8 weeks - 02/27 - continue to monitor output, recommending ID consult, cholecystectomy in 4-6 weeks, diet as tolerated, pain control. -IR consult - Dr oJhnson - Cholecystostomy tube placement 8.5 fr placed this morning 02/26. NAYLA drain. 20 cc of foul smelling bile removed. bile sent for cx. ID- Dr Mills - help is appreciated, will follow recs - Meds: Zosyn 3.375mg IVPB Q6H Tylenol 650mg PO Q6H prn Simethicone 80mg PO Q6 Pancolitis -Antibiotics: Zosyn 3.375mg IVPB Q6H -Metronidazole 1gm IVPB Q 8hrs -C.diff toxin ordered - f/u -F/U stool culture, ova/parasites, fecal leukocytes -Continue IV hydration Abnormal UA -UA showed +2 protein, +1 glucose, +1 ketones, +3 blood, 11 RBC, occasional bacteria -urine culture - no growth final Electrolyte Abnormalities -Phos was 2.0, Potassium 3.7 - follow up Am labs Left Bundle Branch Block -EKG on admission showed LBBB -Initial troponin was negative -Patient denies any chest pain or shortness of breath, denies any cardiac history -echo ordered - f/u results History of Diabetes Mellitus, Type 2 -Patient takes Metformin 1000mg PO BID -We will hold Metformin at this time -Low dose Insulin sliding scale -Accuchecks ACHS -F/U hemoglobin A1C - 7.5 Hypertension - 146/75, normotensive -will hold BP meds at this time GI/DVT ppx: -Protonix 40mg IVP daily -SCDs -clear diet, ADAT <Christo Nichols - Last Filed: 03/18/18 16:06> Attending/Attestation - Attestation I have personally seen and examined this patient.: Yes I have fully participated in the care of the patient.: Yes I have reviewed all pertinent clinical information, including history, physical exam and plan: Yes Notes (Text): Abdominal pain likely secondary to Acute Cholecystitis Pancolitis
[2018-03-01 00:40] VITALS: O2SAT 96
[2018-03-01] MEDS: Piperacillin/Tazobact 3.375 GM in Sodium Chloride 0.9% 100 ML IVPB SCH ×3 (01:25→11:51)
--- NOTE | 2018-03-01 05:57 | CON ---
DATE: 02/28/2018 CONSULT REQUESTED BY: Murali Bunch MD HISTORY OF PRESENT ILLNESS: This patient is a 62-year-old male. He has a history of diabetes and hypertension. He came here with abdominal pain and at present he has a cholecystostomy tube which is draining as he had acute cholecystitis. He still has abdominal distention and he came in on 02/25/2018 and the CAT scan was done which showed the surrounding inflammation and a solitary stone impacted in the neck. At present, he has a cholecystostomy tube. They want to send him home and they want my opinion. He is not allergic to any medicine. He still complains of abdominal distention. PAST MEDICAL HISTORY: Negative for smoking or drinking. He does have history of hypertension and diabetes. No psych history. PAST SURGICAL HISTORY: No surgeries in the past. ALLERGIES: HE IS NOT ALLERGIC TO ANY MEDICINE. MEDICATIONS: He was on vancomycin and he is on medication. He is on Tylenol and albuterol at this time. Colace, guaifenesin, ibuprofen, insulin, metronidazole, pantoprazole, Zosyn, and simethicone. So, he has probably a lot of gas. So, he is on these medications at this time. He did get the cholecystostomy tube which was placed on Sunday and today is , so it is draining bile at this time. REVIEW OF SYSTEMS: GENERAL: He denied any nausea or vomiting. Denies any chest pain. No shortness of breath. He feels a little better but still has distention and tube is draining. He wants to know when he can go home. VITAL SIGNS: T-max is 98.7, pulse 68, blood pressure 149/70, respirations are 20. HEAD: Atraumatic, normocephalic. EYES: Pupils are reacting to light. No icterus present. NECK: Supple. JVP is flat. LUNGS: Clear to auscultation. HEART: S1, S2. Regular. Decreased breath sounds on both bases. ABDOMEN: Distended. No guarding, no rigidity present. Has a drain present, which is draining bile. EXTREMITIES: No edema. LABORATORY DATA: Labs are noted. Labs show white count is 10.3, hemoglobin 11.6, hematocrit 34.5, platelet count is 229. Sodium is 138, potassium 3.8, chloride is 103, CO2 is 26, BUN is 15, creatinine 0.8, alk phos is 105, total protein is 5.8, and stool leukocytes are negative. Body fluid showed E. coli and Klebsiella. Blood culture and urine cultures are negative. Klebsiella and E. coli both are Cipro sensitive, and his labs show the LFTs are unremarkable. ASSESSMENT AND PLAN: So at the present time, he has a biliary drain. I do not know what they plan to do with the drain. He will go home with the drain. His white count is now almost normal and I would change the antibiotic to Cipro IV and leave him on acidophilus and actually send him on Cipro and Flagyl and then monitor him as outpatient. He needs to follow with Surgery so that they monitor him as he still will have the cholecystostomy tube and will need surgery at a later date. We will follow. I heard that he is going to get a CAT scan tomorrow. If that is the scenario, we will watch for that CAT scan and we will follow. Indu Mills MD
[2018-03-01 07:48] LABS: BASO # 0.1 K/uL (0.0-0.2); EOS # 0.3 K/uL (0.0-0.7); EOS % 2.9 % (0.0-4.0); HEMOGLOBIN 11.9 g/dL (12.0-18.0); LYMPH # 1.4 K/uL (1.0-4.3); LYMPH % 13.3 % (20.0-40.0); MEAN CELL VOLUME 87.6 fL (80.0-94.0); MEAN CORPUSCULAR HEMOGLOBIN 29.8 pg (27.0-31.0); MEAN CORPUSCULAR HGB CONC 34.1 g/dL (33.0-37.0); MEAN PLATELET VOLUME 9.3 fL (7.2-11.7); MONO # 1.3 K/uL (0.0-0.8); MONO % 12.6 % (0.0-10.0); NEUT # 7.5 K/uL (1.8-7.0); NEUT % 70.2 % (50.0-75.0); RED CELL DISTRIBUTION WIDTH 14.2 % (11.5-14.5); WHITE BLOOD COUNT 10.7 K/uL (4.8-10.8)
[2018-03-01] MEDS: (Novolin R) Insulin Human Regular 100 units/ml vial SC SCH ×3 (07:53→17:35)
[2018-03-01] MEDS: metroNIDAZOLE IV 500 mg/100 ml 500 MG/100 ML BAG IVPB SCH ×2 (07:54→16:25)
[2018-03-01 08:16] LABS: ALB/GLOB RATIO 0.9 (1.0-2.1); ALBUMIN 2.7 g/dL (3.5-5.0); ALT/SGPT 55 U/L (21-72); AST/SGOT 54 U/L (17-59); BLOOD UREA NITROGEN 14 mg/dL (9-20); CALCIUM 7.8 mg/dl (8.6-10.4); GFR NON-AFRICAN AMERICAN > 60
[2018-03-01] MEDS: Simethicone 80 mg Chewtab PO PRN (09:13)
[2018-03-01] MEDS ORDERED: Ciprofloxacin 400mg/200ml D5W 400 MG/200 ML BAG IVPB SCH (10:00)
--- NOTE | 2018-03-01 12:06 | CP.PCM.PN ---
<Roya John - Last Filed: 03/01/18 17:06> Subjective - Date & Time of Evaluation Date of Evaluation: 03/01/18 Time of Evaluation: 14:30 - Subjective Subjective: General surgeyr progress note for Dr. Cabrera Pt seen and examined at bedside. No adverse events overnight. No fevers. states he tolerated his diet and his pain is improved Objective - Vital Signs/Intake and Output Vital Signs (last 24 hours): Temp Pulse Resp BP Pulse Ox 98.6 F 66 20 145/72 96 03/01/18 07:00 03/01/18 07:00 03/01/18 07:00 03/01/18 07:00 03/01/18 07:00 Intake and Output: 03/01/18 03/01/18 06:59 18:59 Intake Total 680 300 Output Total 40 70 Balance 640 230 - Medications Medications: Current Medications Acetaminophen (Tylenol 325mg Tab) 650 mg PO Q6 PRN PRN Reason: Fever >100.4 F Albuterol/Ipratropium (Duoneb 3 Mg/0.5 Mg (3 Ml) Ud) 3 ml INH RQ4 PRN PRN Reason: Cough Docusate Sodium (Colace) 100 mg PO BID [facility] Last Admin: 03/01/18 09:10 Dose: 100 mg Guaifenesin/Dextromethorphan (Robitussin Dm) 5 ml PO Q4H PRN PRN Reason: Cough Last Admin: 02/28/18 21:51 Dose: 5 ml Metronidazole (Flagyl) 500 mg in 100 mls @ 100 mls/hr IVPB Q8H [facility]; Protocol Last Admin: 03/01/18 07:54 Dose: 100 mls/hr Piperacillin Sod/Tazobactam (Sod 3.375 gm/ Sodium Chloride) 100 mls @ 100 mls/hr IVPB Q6H [facility]; Protocol Last Admin: 03/01/18 11:51 Dose: 100 mls/hr Ciprofloxacin (Cipro 400mg/200ml Dsw) 400 mg in 200 mls @ 133 mls/hr IVPB Q12H [facility]; Protocol Last Admin: 03/01/18 10:24 Dose: 133 mls/hr Ibuprofen (Motrin Tab) 400 mg PO Q4 PRN PRN Reason: Fever >100.4 F Insulin Human Regular (Novolin R) 0 unit SC ACHS [facility]; Protocol Last Admin: 03/01/18 11:49 Dose: 2 unit Pantoprazole Sodium (Protonix Inj) 40 mg IVP DAILY [facility] Last Admin: 03/01/18 09:10 Dose: 40 mg Simethicone (Mylicon Chew Tab) 80 mg PO QID PRN PRN Reason: gas pain Last Admin: 03/01/18 09:13 Dose: 80 mg - Labs Labs: 03/01/18 07:20 03/01/18 07:20 PT 16.0 SECONDS (9.7-12.2) H 02/25/18 17:27 INR 1.5 02/25/18 17:27 APTT 32 SECONDS (21-34) 02/25/18 17:27 - Constitutional Appears: Well, Non-toxic, No Acute Distress - Head Exam Head Exam: ATRAUMATIC, NORMOCEPHALIC - Eye Exam Eye Exam: Normal appearance. absent: Conjunctival injection, Scleral icterus - ENT Exam ENT Exam: Mucous Membranes Moist, Normal Oropharynx - Respiratory Exam Respiratory Exam: NORMAL BREATHING PATTERN. absent: Accessory Muscle Use, Respiratory Distress - Cardiovascular Exam Cardiovascular Exam: RRR - GI/Abdominal Exam GI & Abdominal Exam: Soft, Tenderness (mild RUQ tenderness). absent: Distended Additional comments: cholecystostomy tube in place in the RUQ, small amount of bilious clear fluid output - Extremities Exam Extremities Exam: absent: Calf Tenderness, Pedal Edema, Tenderness - Neurological Exam Neurological Exam: Alert, Awake, Oriented x3 - Psychiatric Exam Psychiatric exam: Normal Affect, Normal Mood - Skin Skin Exam: Dry, Intact, Normal Color, Warm Assessment and Plan - Assessment and Plan (Free Text) Assessment: 62M with sepsis 2/2 acute cholecystitis, s/p cholecystostomy tube placement Plan: Clear for discharge from a surgical standpoint with antibiotics per ID and follow up with Dr. Cabrera in his office in 2 weeks. Possible cholecystectomy 6 weeks after cholecystostomy tube placement. PRN pain medications Discussed with Dr. Cabrera, who agrees with above Roya John PGY2 <Yfn Cabrera - Last Filed: 03/02/18 18:37> Objective - Vital Signs/Intake and Output Vital Signs (last 24 hours): Temp Pulse Resp BP Pulse Ox 98.2 F 67 20 154/79 H 96 03/01/18 15:00 03/01/18 15:00 03/01/18 15:00 03/01/18 15:00 03/01/18 15:00 - Labs Labs: 03/01/18 07:20 03/01/18 07:20 PT 16.0 SECONDS (9.7-12.2) H 02/25/18 17:27 INR 1.5 02/25/18 17:27 APTT 32 SECONDS (21-34) 02/25/18 17:27 Attending/Attestation - Attestation I have personally seen and examined this patient.: Yes I have fully participated in the care of the patient.: Yes I have reviewed all pertinent clinical information, including history, physical exam and plan: Yes Notes (Text): Pt was seen and examined at bedside Agree with above note and assessment Pt with cholecystitis and s/p Cholecystostomy tube Pt is improved completely Can be DC home f.u as out pt after 2 weeks PO antibiotics for 10 days Plan d.w pt in detail Risk and benefit explained in detail.
[2018-03-01 16:04] VITALS: BP 154/79; PULSE 67; TEMP 98.2
--- NOTE | 2018-03-01 17:40 | CP.PCM.PN ---
Subjective - Date & Time of Evaluation Date of Evaluation: 03/01/18 Time of Evaluation: 15:00 - Subjective Subjective: dictated Objective - Vital Signs/Intake and Output Vital Signs (last 24 hours): Temp Pulse Resp BP Pulse Ox 98.2 F 67 20 154/79 H 96 03/01/18 15:00 03/01/18 15:00 03/01/18 15:00 03/01/18 15:00 03/01/18 15:00 Intake and Output: 03/01/18 03/01/18 06:59 18:59 Intake Total 680 1100 Output Total 40 970 Balance 640 130 - Medications Medications: Current Medications Acetaminophen (Tylenol 325mg Tab) 650 mg PO Q6 PRN PRN Reason: Fever >100.4 F Albuterol/Ipratropium (Duoneb 3 Mg/0.5 Mg (3 Ml) Ud) 3 ml INH RQ4 PRN PRN Reason: Cough Docusate Sodium (Colace) 100 mg PO BID AMANDA Last Admin: 03/01/18 09:10 Dose: 100 mg Guaifenesin/Dextromethorphan (Robitussin Dm) 5 ml PO Q4H PRN PRN Reason: Cough Last Admin: 02/28/18 21:51 Dose: 5 ml Metronidazole (Flagyl) 500 mg in 100 mls @ 100 mls/hr IVPB Q8H [facility]; Protocol Last Admin: 03/01/18 16:25 Dose: 100 mls/hr Piperacillin Sod/Tazobactam (Sod 3.375 gm/ Sodium Chloride) 100 mls @ 100 mls/hr IVPB Q6H [facility]; Protocol Last Admin: 03/01/18 11:51 Dose: 100 mls/hr Ciprofloxacin (Cipro 400mg/200ml Dsw) 400 mg in 200 mls @ 133 mls/hr IVPB Q12H [facility]; Protocol Last Admin: 03/01/18 10:24 Dose: 133 mls/hr Ibuprofen (Motrin Tab) 400 mg PO Q4 PRN PRN Reason: Fever >100.4 F Insulin Human Regular (Novolin R) 0 unit SC ACHS [facility]; Protocol Last Admin: 03/01/18 17:35 Dose: Not Given Pantoprazole Sodium (Protonix Inj) 40 mg IVP DAILY [facility] Last Admin: 03/01/18 09:10 Dose: 40 mg Simethicone (Mylicon Chew Tab) 80 mg PO QID PRN PRN Reason: gas pain Last Admin: 03/01/18 09:13 Dose: 80 mg - Labs Labs: 03/01/18 07:20 03/01/18 07:20 PT 16.0 SECONDS (9.7-12.2) H 02/25/18 17:27 INR 1.5 02/25/18 17:27 APTT 32 SECONDS (21-34) 02/25/18 17:27
--- NOTE | 2018-03-01 21:42 | CP.PCM.DIS ---
<Jeffrey Pedraza - Last Filed: 03/01/18 21:21> Provider - Provider Date of Admission: 02/25/18 20:06 Attending physician: Murali Bunch MD Time Spent in preparation of Discharge (in minutes): 120 Diagnosis - Discharge Diagnosis (1) Abdominal bloating Status: Acute (2) Abdominal pain Status: Acute (3) Acute cholecystitis Status: Acute Hospital Course - Lab Results Lab Results: Micro Results 02/28/18 19:22 Stool Ova and Parasite Concentrate Exam - Final 02/25/18 22:30 Blood Blood Culture - Preliminary NO GROWTH AFTER 3 DAYS 02/25/18 22:30 Blood Blood Culture - Preliminary NO GROWTH AFTER 3 DAYS 02/26/18 11:12 Bile Gram Stain - Final 02/26/18 11:12 Bile Body Fluid Culture - Final Escherichia Coli Klebsiella Pneumoniae Ssp Pneu 02/25/18 18:51 Urine,Clean Catch Urine Culture - Final No Growth (<1,000 CFU/ML) Most Recent Lab Values WBC 10.7 K/uL (4.8-10.8) 03/01/18 07:20 RBC 4.00 Mil/uL (4.40-5.90) L 03/01/18 07:20 Hgb 11.9 g/dL (12.0-18.0) L 03/01/18 07:20 Hct 35.0 % (35.0-51.0) 03/01/18 07:20 MCV 87.6 fL (80.0-94.0) 03/01/18 07:20 MCH 29.8 pg (27.0-31.0) 03/01/18 07:20 MCHC 34.1 g/dL (33.0-37.0) 03/01/18 07:20 RDW 14.2 % (11.5-14.5) 03/01/18 07:20 Plt Count 305 K/uL (130-400) 03/01/18 07:20 MPV 9.3 fL (7.2-11.7) 03/01/18 07:20 Neut % (Auto) 70.2 % (50.0-75.0) 03/01/18 07:20 Lymph % (Auto) 13.3 % (20.0-40.0) L 03/01/18 07:20 [place] % (Auto) 12.6 % (0.0-10.0) H 03/01/18 07:20 Eos % (Auto) 2.9 % (0.0-4.0) 03/01/18 07:20 Baso % (Auto) 1.0 % (0.0-2.0) 03/01/18 07:20 Neut # (Auto) 7.5 K/uL (1.8-7.0) H 03/01/18 07:20 Lymph # (Auto) 1.4 K/uL (1.0-4.3) 03/01/18 07:20 [place] # (Auto) 1.3 K/uL (0.0-0.8) H 03/01/18 07:20 Eos # (Auto) 0.3 K/uL (0.0-0.7) 03/01/18 07:20 Baso # (Auto) 0.1 K/uL (0.0-0.2) 03/01/18 07:20 Neutrophils % (Manual) 71 % (50-75) 02/27/18 07:44 Band Neutrophils % 2 % (0-2) 02/26/18 07:45 Lymphocytes % (Manual) 12 % (20-40) L 02/27/18 07:44 Monocytes % (Manual) 16 % (0-10) H 02/27/18 07:44 Eosinophils % (Manual) 1 % (0-4) 02/27/18 07:44 Platelet Estimate Normal (NORMAL) 02/27/18 07:44 RBC Morphology Normal 02/25/18 17:27 Hypochromasia (manual) Slight 02/27/18 07:44 Poikilocytosis (manual Slight 02/27/18 07:44 Anisocytosis (manual) Slight 02/27/18 07:44 Target Cells Slight 02/27/18 07:44 PT 16.0 SECONDS (9.7-12.2) H 02/25/18 17:27 INR 1.5 02/25/18 17:27 APTT 32 SECONDS (21-34) 02/25/18 17:27 pO2 21 mm/Hg (30-55) L 02/25/18 19:32 VBG pH 7.40 (7.32-7.43) 02/25/18 19:32 VBG pCO2 41 mmHg (40-60) 02/25/18 19:32 VBG HCO3 23.6 mmol/L 02/25/18 19:32 VBG Total CO2 26.7 mmol/L (22-28) 02/25/18 19:32 VBG O2 Sat (Calc) 41.5 % (40-65) 02/25/18 19:32 VBG Base Excess 0.5 mmol/L (0.0-2.0) 02/25/18 19:32 VBG Potassium 3.2 mmol/L (3.6-5.2) L 02/25/18 19:32 Sodium 135.0 mmol/l (132-148) 02/25/18 19:32 Chloride 105.0 mmol/L (98-107) 02/25/18 19:32 Glucose 226 mg/dl (75-110) H 02/25/18 19:32 Lactate 1.5 mmol/L (0.7-2.1) 02/25/18 19:32 Sodium 137 mmol/L (132-148) 03/01/18 07:20 Potassium 3.6 mmol/L (3.6-5.2) 03/01/18 07:20 Chloride 107 mmol/L (98-107) 03/01/18 07:20 Carbon Dioxide 22 mmol/L (22-30) 03/01/18 07:20 Anion Gap 12 (10-20) 03/01/18 07:20 BUN 14 mg/dL (9-20) 03/01/18 07:20 Creatinine 0.7 mg/dL (0.8-1.5) L 03/01/18 07:20 Est GFR ( Amer) > 60 03/01/18 07:20 Est GFR (Non-Af Amer) > 60 03/01/18 07:20 POC Glucose (mg/dL) 161 mg/dL (65-110) H 03/01/18 16:33 Random Glucose 149 mg/dL (75-110) H 03/01/18 07:20 Hemoglobin A1c 7.5 % (4.2-6.5) H 02/26/18 07:45 Calcium 7.8 mg/dl (8.6-10.4) L 03/01/18 07:20 Phosphorus 2.9 mg/dL (2.5-4.5) 03/01/18 07:20 Magnesium 2.0 mg/dL (1.6-2.3) 03/01/18 07:20 Total Bilirubin 0.9 mg/dL (0.2-1.3) 03/01/18 07:20 AST 54 U/L (17-59) 03/01/18 07:20 ALT 55 U/L (21-72) 03/01/18 07:20 Alkaline Phosphatase 97 U/L (38-126) 03/01/18 07:20 Troponin I 0.0280 ng/mL (0.00-0.120) 02/25/18 17:27 NT-Pro-B Natriuret Pep 441 pg/mL (0-900) 02/25/18 17:27 Total Protein 5.7 g/dL (6.3-8.3) L 03/01/18 07:20 Albumin 2.7 g/dL (3.5-5.0) L 03/01/18 07:20 Globulin 3.1 gm/dL (2.2-3.9) 03/01/18 07:20 Albumin/Globulin Ratio 0.9 (1.0-2.1) L 03/01/18 07:20 Triglycerides 401 mg/dL (0-149) H 02/26/18 07:45 Cholesterol 120 mg/dL (0-199) 02/26/18 07:45 LDL Cholesterol Direct < 30 mg/dL (0-129) 02/26/18 07:45 HDL Cholesterol 17 mg/dL (30-70) L 02/26/18 07:45 Lipase 91 U/L (23-300) 02/25/18 17:27 Procalcitonin 5.66 NG/ML (0.19-0.49) H 02/26/18 07:45 Free T4 1.48 ng/dL (0.78-2.19) 02/26/18 07:45 TSH 3rd Generation 0.60 mIU/L (0.46-4.68) 02/26/18 07:45 Venous Blood Potassium 3.2 mmol/L (3.6-5.2) L 02/25/18 19:32 Urine Color Suzie (YELLOW) 02/25/18 18:51 Urine Clarity Hazy (Clear) 02/25/18 18:51 Urine pH 5.0 (5.0-8.0) 02/25/18 18:51 Ur Specific Merrill 1.027 (1.003-1.030) 02/25/18 18:51 Urine Protein 2+ mg/dL (NEGATIVE) H 02/25/18 18:51 Urine Glucose (UA) 1+ mg/dL (Normal) H 02/25/18 18:51 Urine Ketones 1+ mg/dL (NEGATIVE) H 02/25/18 18:51 Urine Blood 3+ (NEGATIVE) H 02/25/18 18:51 Urine Nitrate Negative (NEGATIVE) 02/25/18 18:51 Urine Bilirubin Negative (NEGATIVE) 02/25/18 18:51 Urine Urobilinogen Normal mg/dL (0.2-1.0) 02/25/18 18:51 Ur Leukocyte Esterase Neg Kayla/uL (Negative) 02/25/18 18:51 Urine WBC (Auto) 5 /hpf (0-5) 02/25/18 18:51 Urine RBC (Auto) 11 /hpf (0-3) H 02/25/18 18:51 Ur Squamous Epith Cells < 1 /hpf (0-5) 02/25/18 18:51 Urine Bacteria Occ (<OCC) H 02/25/18 18:51 Stool Leukocytes, Qual Negative (NEGATIVE) 02/28/18 19:22 - Hospital Course Hospital Course: On admission: Patient is a 62 year old male with past medical history of Hypertension and Diabetes Mellitus, Type 2 who was sent to the emergency dept by his PMD for worsening abdominal pain and fevers/chills. Patient states that abdominal pain started last Sunday. He has never had this pain before in the past. Pain is located in the RUQ and does not radiate. Describes that pain as "hard" and constant in nature. Patient has been associated with decreased PO intake and subjective fevers. Patient states that he has not eaten anything solid since last Sunday but has been able to tolerate liquids. Patient saw his PMD today and was found to have a fever of 104. Patient states that for the last two days he was having diarrhea. Unable to quantify how much. He states that it is watery. Last bowel movement was this afternoon at 3pm. Patient was recently seen in the ED on 02/21/18 for RUQ/epigastric pain worse after eating. Abdominal US at that time did not show gallstones or gallbladder wall thickening. Code sepsis was called in the emergency department. Currently patient is resting comfortably. Denies nausea/vomiting, headaches, dizziness, changes in vision, cp, palpitations, sob, dysuria. He does admit to increase in urinary frequency. On hospitalization: Patient was admitted for abdominal pain likely secondary to acute cholecystitis. At the ED, patient was stable with Tmax of 103 and WBC of 18.2, code sepsis was called in the ER. Patient was placed on telemetry. CT abdomen and pelvis showed acute cholecystitis, 5mm calcified stone in the neck of the gallbladder, hepatomegaly with fatty infiltration, pancolitis, the heart is enlarged, pulmonary vascular congestive changes, right lower lobe consolidation with air bronchograms consistent with pneumonia. Gallbladder US showed somewhat thickened gallbladder wall is apprciate with limited pericholecystic fluid but no sonographic rodriguez sign or cholelithiasis related. Surgery consult - Dr Cabrera - pt has higher operative morbidity/mortality than typical acute cholecystitis pt would benefit from IR drainage PTC vs cholecystostomy tube with delayed lap mary ellen on an elective basis in 6-8 weeks. [address] Johnson was consulted which performed a cholecystostomy tube placement, 8.5 fr NAYLA drain and took bile cultures on 02/26. blood cultures, urine cultures - no growth. bile fluid culture - gram negative rods. ID Dr Mills was consulted. Patient received the following antibiotics Zosyn 3.375mg IVPB Q6H and Metronidazole 1gm IVPB Q 8hrs. Patient white blood count trended down 10.7. Patient was given Protonix 40mg IVP daily and SCDs for DVT prophylaxis. On Discharge: The following instructed were provided to the patient: Patient is to follow up with Dr Cabrera in his office in two weeks for possible elective surgery in 6-8 weeks. Please practice the right steps to clean the drain you have in your abdomen as it was taught to you in the hospital. Patient is to start taking the following two medications: - Ciprofloxacin 500mg per mouth twice a day for 2 weeks - Flagyl 500mg per mouth three times a day for 2 weeks - continue your home medications - if your symptoms recur and worsen, please return to the Emergency room This is a brief summary of patient hospitalization course. Please refer to EMR for more information. - Date & Time of H&P Date of H&P: 02/25/18 Time of H&P: 20:05 Discharge Exam - Head Exam Head Exam: ATRAUMATIC, NORMAL INSPECTION, NORMOCEPHALIC - Eye Exam Eye Exam: EOMI, Normal appearance - ENT Exam ENT Exam: Mucous Membranes Moist, Normal Exam - Neck Exam Neck exam: Full Rom, Normal Inspection - Respiratory Exam Respiratory Exam: Clear to PA & Lateral, NORMAL BREATHING PATTERN, UNREMARKABLE - Cardiovascular Exam Cardiovascular Exam: REGULAR RHYTHM, +S1, +S2 - GI/Abdominal Exam GI & Abdominal Exam: Normal Bowel Sounds, Unremarkable. absent: Distended Additional comments: cholecystostomy tube located at right upper quadrant, small amount of fluid output. - Extremities Exam Extremities exam: full ROM, normal inspection - Back Exam Back exam: NORMAL INSPECTION - Neurological Exam Neurological exam: Alert, Oriented x3 - Psychiatric Exam Psychiatric exam: Normal Affect, Normal Mood - Skin Skin Exam: Dry, Intact, Normal Color, Warm Discharge Plan - Follow Up Plan Condition: GUARDED Disposition: HOME/ ROUTINE Instructions: Ciprofloxacin (Systemic), Metronidazole (Systemic), Cholecystitis (DC), Cholecystitis (GEN) Additional Instructions: Patient is to follow up with Dr Cabrera in his office in two weeks for possible elective surgery in 6-8 weeks. Please practice the right steps to clean the drain you have in your abdomen as it was taught to you in the hospital Patient is to start taking the following two medications - Ciprofloxacin 500mg per mouth twice a day for 2 weeks - Flagyl 500mg per mouth three times a day for 2 weeks - continue your home medications - if your symptoms recur and worsen, please return to the Emergency room El paciente debe seguir con el Dr Cabrera en ramirez oficina en dos semanas para la ciruga electiva posible en 6-8 semanas. Practique por favor los pasos correctos para limpiar el dren que usted tiene en ramirez abdomen mientras que le fue enseado en el paciente del hospital es comenzar a sandi las dos medicaciones siguientes-ciprofloxacin 500mg por la boca dos veces al da por 2 semanas-Flagyl 500mg por la boca tomeka veces a d Ay por 2 semanas-contine con denisse medicamentos caseros-si denisse sntomas se repiten y empeoran, por favor regrese a la caitie de emergencias Referrals: Yfn Cabrera MD [Staff Provider] - <Christo Nichols - Last Filed: 03/18/18 16:05> Provider - Provider Date of Admission: 02/25/18 20:06 Attending physician: Murali Bunch MD Hospital Course - Lab Results Lab Results: Micro Results 02/28/18 19:22 Stool Stool Culture - Final NO SALMONELLA, SHIGELLA OR CAMPYLOBACTER ISOLATED. 02/25/18 22:30 Blood Blood Culture - Final NO GROWTH AFTER 5 DAYS 02/25/18 22:30 Blood Gram Stain - Final TEST NOT PERFORMED 02/25/18 22:30 Blood Blood Culture - Final NO GROWTH AFTER 5 DAYS 02/25/18 22:30 Blood Gram Stain - Final TEST NOT PERFORMED 02/28/18 19:22 Stool Ova and Parasite Concentrate Exam - Final 02/26/18 11:12 Bile Gram Stain - Final 02/26/18 11:12 Bile Body Fluid Culture - Final Escherichia Coli Klebsiella Pneumoniae Ssp Pneu 02/25/18 18:51 Urine,Clean Catch Urine Culture - Final No Growth (<1,000 CFU/ML) Most Recent Lab Values WBC 10.7 K/uL (4.8-10.8) 03/01/18 07:20 RBC 4.00 Mil/uL (4.40-5.90) L 03/01/18 07:20 Hgb 11.9 g/dL (12.0-18.0) L 03/01/18 07:20 Hct 35.0 % (35.0-51.0) 03/01/18 07:20 MCV 87.6 fL (80.0-94.0) 03/01/18 07:20 MCH 29.8 pg (27.0-31.0) 03/01/18 07:20 MCHC 34.1 g/dL (33.0-37.0) 03/01/18 07:20 RDW 14.2 % (11.5-14.5) 03/01/18 07:20 Plt Count 305 K/uL (130-400) 03/01/18 07:20 MPV 9.3 fL (7.2-11.7) 03/01/18 07:20 Neut % (Auto) 70.2 % (50.0-75.0) 03/01/18 07:20 Lymph % (Auto) 13.3 % (20.0-40.0) L 03/01/18 07:20 [place] % (Auto) 12.6 % (0.0-10.0) H 03/01/18 07:20 Eos % (Auto) 2.9 % (0.0-4.0) 03/01/18 07:20 Baso % (Auto) 1.0 % (0.0-2.0) 03/01/18 07:20 Neut # (Auto) 7.5 K/uL (1.8-7.0) H 03/01/18 07:20 Lymph # (Auto) 1.4 K/uL (1.0-4.3) 03/01/18 07:20 [place] # (Auto) 1.3 K/uL (0.0-0.8) H 03/01/18 07:20 Eos # (Auto) 0.3 K/uL (0.0-0.7) 03/01/18 07:20 Baso # (Auto) 0.1 K/uL (0.0-0.2) 03/01/18 07:20 Neutrophils % (Manual) 71 % (50-75) 02/27/18 07:44 Band Neutrophils % 2 % (0-2) 02/26/18 07:45 Lymphocytes % (Manual) 12 % (20-40) L 02/27/18 07:44 Monocytes % (Manual) 16 % (0-10) H 02/27/18 07:44 Eosinophils % (Manual) 1 % (0-4) 02/27/18 07:44 Platelet Estimate Normal (NORMAL) 02/27/18 07:44 RBC Morphology Normal 02/25/18 17:27 Hypochromasia (manual) Slight 02/27/18 07:44 Poikilocytosis (manual Slight 02/27/18 07:44 Anisocytosis (manual) Slight 02/27/18 07:44 Target Cells Slight 02/27/18 07:44 PT 16.0 SECONDS (9.7-12.2) H 02/25/18 17:27 INR 1.5 02/25/18 17:27 APTT 32 SECONDS (21-34) 02/25/18 17:27 pO2 21 mm/Hg (30-55) L 02/25/18 19:32 VBG pH 7.40 (7.32-7.43) 02/25/18 19:32 VBG pCO2 41 mmHg (40-60) 02/25/18 19:32 VBG HCO3 23.6 mmol/L 02/25/18 19:32 VBG Total CO2 26.7 mmol/L (22-28) 02/25/18 19:32 VBG O2 Sat (Calc) 41.5 % (40-65) 02/25/18 19:32 VBG Base Excess 0.5 mmol/L (0.0-2.0) 02/25/18 19:32 VBG Potassium 3.2 mmol/L (3.6-5.2) L 02/25/18 19:32 Sodium 135.0 mmol/l (132-148) 02/25/18 19:32 Chloride 105.0 mmol/L (98-107) 02/25/18 19:32 Glucose 226 mg/dl (75-110) H 02/25/18 19:32 Lactate 1.5 mmol/L (0.7-2.1) 02/25/18 19:32 Sodium 137 mmol/L (132-148) 03/01/18 07:20 Potassium 3.6 mmol/L (3.6-5.2) 03/01/18 07:20 Chloride 107 mmol/L (98-107) 03/01/18 07:20 Carbon Dioxide 22 mmol/L (22-30) 03/01/18 07:20 Anion Gap 12 (10-20) 03/01/18 07:20 BUN 14 mg/dL (9-20) 03/01/18 07:20 Creatinine 0.7 mg/dL (0.8-1.5) L 03/01/18 07:20 Est GFR ( Amer) > 60 03/01/18 07:20 Est GFR (Non-Af Amer) > 60 03/01/18 07:20 POC Glucose (mg/dL) 161 mg/dL (65-110) H 03/01/18 16:33 Random Glucose 149 mg/dL (75-110) H 03/01/18 07:20 Hemoglobin A1c 7.5 % (4.2-6.5) H 02/26/18 07:45 Calcium 7.8 mg/dl (8.6-10.4) L 03/01/18 07:20 Phosphorus 2.9 mg/dL (2.5-4.5) 03/01/18 07:20 Magnesium 2.0 mg/dL (1.6-2.3) 03/01/18 07:20 Total Bilirubin 0.9 mg/dL (0.2-1.3) 03/01/18 07:20 AST 54 U/L (17-59) 03/01/18 07:20 ALT 55 U/L (21-72) 03/01/18 07:20 Alkaline Phosphatase 97 U/L (38-126) 03/01/18 07:20 Troponin I 0.0280 ng/mL (0.00-0.120) 02/25/18 17:27 NT-Pro-B Natriuret Pep 441 pg/mL (0-900) 02/25/18 17:27 Total Protein 5.7 g/dL (6.3-8.3) L 03/01/18 07:20 Albumin 2.7 g/dL (3.5-5.0) L 03/01/18 07:20 Globulin 3.1 gm/dL (2.2-3.9) 03/01/18 07:20 Albumin/Globulin Ratio 0.9 (1.0-2.1) L 03/01/18 07:20 Triglycerides 401 mg/dL (0-149) H 02/26/18 07:45 Cholesterol 120 mg/dL (0-199) 02/26/18 07:45 LDL Cholesterol Direct < 30 mg/dL (0-129) 02/26/18 07:45 HDL Cholesterol 17 mg/dL (30-70) L 02/26/18 07:45 Lipase 91 U/L (23-300) 02/25/18 17:27 Procalcitonin 5.66 NG/ML (0.19-0.49) H 02/26/18 07:45 Free T4 1.48 ng/dL (0.78-2.19) 02/26/18 07:45 TSH 3rd Generation 0.60 mIU/L (0.46-4.68) 02/26/18 07:45 Venous Blood Potassium 3.2 mmol/L (3.6-5.2) L 02/25/18 19:32 Urine Color Suzie (YELLOW) 02/25/18 18:51 Urine Clarity Hazy (Clear) 02/25/18 18:51 Urine pH 5.0 (5.0-8.0) 02/25/18 18:51 Ur Specific Merrill 1.027 (1.003-1.030) 02/25/18 18:51 Urine Protein 2+ mg/dL (NEGATIVE) H 02/25/18 18:51 Urine Glucose (UA) 1+ mg/dL (Normal) H 02/25/18 18:51 Urine Ketones 1+ mg/dL (NEGATIVE) H 02/25/18 18:51 Urine Blood 3+ (NEGATIVE) H 02/25/18 18:51 Urine Nitrate Negative (NEGATIVE) 02/25/18 18:51 Urine Bilirubin Negative (NEGATIVE) 02/25/18 18:51 Urine Urobilinogen Normal mg/dL (0.2-1.0) 02/25/18 18:51 Ur Leukocyte Esterase Neg Kayla/uL (Negative) 02/25/18 18:51 Urine WBC (Auto) 5 /hpf (0-5) 02/25/18 18:51 Urine RBC (Auto) 11 /hpf (0-3) H 02/25/18 18:51 Ur Squamous Epith Cells < 1 /hpf (0-5) 02/25/18 18:51 Urine Bacteria Occ (<OCC) H 02/25/18 18:51 Stool Leukocytes, Qual Negative (NEGATIVE) 02/28/18 19:22 Attending/Attestation - Attestation I have personally seen and examined this patient.: Yes I have fully participated in the care of the patient.: Yes I have reviewed all pertinent clinical information, including history, physical exam and plan: Yes Notes (Text): Patient was admitted for abdominal pain likely secondary to acute cholecystitis. At the ED, patient was stable with Tmax of 103 and WBC of 18.2, code sepsis was called in the ER. Patient was placed on telemetry. CT abdomen and pelvis showed acute cholecystitis, 5mm calcified stone in the neck of the gallbladder, hepatomegaly with fatty infiltration, pancolitis, the heart is enlarged, pulmonary vascular congestive changes, right lower lobe consolidation with air bronchograms consistent with pneumonia. Gallbladder US showed somewhat thickened gallbladder wall is apprciate with limited pericholecystic fluid but no sonographic rodriguez sign or cholelithiasis related. Surgery consult - Dr Cabrera - pt has higher operative morbidity/mortality than typical acute cholecystitis pt would benefit from IR drainage PTC vs cholecystostomy tube with delayed lap mary ellen on an elective basis in 6-8 weeks. [address] Johnson was consulted which performed a cholecystostomy tube placement, 8.5 fr NAYLA drain and took bile cultures on 02/26. blood cultures, urine cultures - no growth. bile fluid culture - gram negative rods. ID Dr Mills was consulted. Patient received the following antibiotics Zosyn 3.375mg IVPB Q6H and Metronidazole 1gm IVPB Q 8hrs. Patient white blood count trended down 10.7. Patient was given Protonix 40mg IVP daily and SCDs for DVT prophylaxis.
--- NOTE | 2018-03-01 23:26 | PN ---
DATE: 03/01/2018 SUBJECTIVE: The patient is afebrile. He is feeling better. He had no fevers. He is going to go home. The resident called me and Surgery is clearing him to go with a cholecystostomy tube and a NAYLA drain. He is on Cipro and Flagyl. I had to discontinue Zosyn yesterday. We will discontinue that. The patient is on Cipro and Flagyl and probably that can go on oral of these medications for two weeks. He still has a cholecystostomy tube. He needs to follow up with Surgery. PHYSICAL EXAMINATION: VITAL SIGNS: His vitals are stable. T-max is 98.2, pulse 67, blood pressure 154/79, respirations are 20. HEENT: Head is atraumatic, normocephalic. NECK: Supple. LUNGS: Clear. HEART: S1 and S2, regular. ABDOMEN: Mildly distended. He has one NAYLA drain and one cholecystostomy tube. EXTREMITIES: Have no edema. ASSESSMENT AND PLAN: He says he is taught how to clean these tubes. He will be following with the surgical team. He is status post cholecystostomy with diabetes and will be going on oral antibiotics. Cultures were noted. Cipro is covering both the bacteria which were isolated, but the patient has today cautioned as this is a direct connection to his abdomen and need to follow closely. He does not have any peripherally inserted central catheter line. He is going to go on oral antibiotic that should be obtained. Indu Mills MD
== END 2018-03-01 18:34 | disposition home or self-care (01) | DRG 710 ==
LOC: C.ER 16:26 → C.9E 20:06 → C.5S 02-26 02:41
PROVIDERS: ADMIT Internal Medicine; ATTEND Internal Medicine
PROC: 0F9430Z Drainage of Gallbladder with Drainage Device, Percutaneous Approach (ICD-10-PCS; principal; 2018-02-27)
DX: A41.9 Sepsis, unspecified organism (principal); J18.9 Pneumonia, unspecified organism; K81.0 Acute cholecystitis; I11.9 Hypertensive heart disease without heart failure; E11.9 Type 2 diabetes mellitus without complications; I44.7 Left bundle-branch block, unspecified; I51.7 Cardiomegaly; Z79.84 Long term (current) use of oral hypoglycemic drugs; Z87.891 Personal history of nicotine dependence; E66.9 Obesity, unspecified; Z68.34 Body mass index [BMI] 34.0-34.9, adult

== ENCOUNTER 2018-03-11 13:17 | Observation (INO) | payer OTHER ==
[2018-03-11 13:18] VITALS: BMI 34.8
[2018-03-11 13:55] LABS: BASO # 0.1 K/uL (0.0-0.2); BASO % 0.8 % (0.0-2.0); EOS # 0.1 K/uL (0.0-0.7); EOS % 0.7 % (0.0-4.0); LYMPH # 1.9 K/uL (1.0-4.3); LYMPH % 15.7 % (20.0-40.0); MEAN CORPUSCULAR HEMOGLOBIN 30.1 pg (27.0-31.0); MEAN CORPUSCULAR HGB CONC 33.8 g/dL (33.0-37.0); MEAN PLATELET VOLUME 8.7 fL (7.2-11.7); MONO # 0.8 K/uL (0.0-0.8); MONO % 6.8 % (0.0-10.0); NRBC % 0.1 % (0.0-2.0); RBC 4.89 Mil/uL (4.40-5.90); RED CELL DISTRIBUTION WIDTH 14.2 % (11.5-14.5); WHITE BLOOD COUNT 11.9 K/uL (4.8-10.8)
[2018-03-11 13:59] LABS: HEMOGLOBIN 14.7 g/dL (12.0-18.0)
[2018-03-11] MEDS ORDERED: Sodium Chloride 0.9% 1,000 ML IV ONE (14:00)
[2018-03-11 14:06] LABS: ALB/GLOB RATIO 1.3 (1.0-2.1); ALT/SGPT 31 U/L (21-72); AST/SGOT 33 U/L (17-59); BLOOD UREA NITROGEN 20 mg/dL (9-20); GFR NON-AFRICAN AMERICAN 51
[2018-03-11] MEDS ORDERED: Sodium Chloride 0.9% 1,000 ML ONE ×2 (14:11→19:15)
--- NOTE | 2018-03-11 16:20 | US ---
Date of service: 03/11/2018 HISTORY: RUQ, tube in GB Relevant interventional procedure(s): February 26, 2018 percutaneous cholecystotomy tube placement COMPARISON: 02/25/2018 abdominal ultrasound TECHNIQUE: Sonographic evaluation of the right upper quadrant of the abdomen. FINDINGS: LIVER: Measures 18.4 cm in length. Hepatopedal blood flow. Fatty infiltration manifest ultrasonographically as increased echogenicity of the liver parenchyma. No mass. No intrahepatic bile duct dilatation. GALLBLADDER: Gallstones identified. Gallbladder collapsed accentuating gallbladder wall thickening. Pericholecystic fluid noted. COMMON BILE DUCT: Measures 4.8 mm. No stones. No dilatation. PANCREAS: Unremarkable as visualized. No mass. No ductal dilatation. RIGHT KIDNEY: Measures 10.6 x 5.1 cm in length. Echogenic focus lower pole 6 x 9 mm consistent with nonobstructing calculus. AORTA: No aneurysmal dilatation. IVC: Unremarkable. OTHER FINDINGS: None . IMPRESSION: Findings right upper quadrant consistent with recent cholecystotomy placement. Gallstones remain, the gallbladder wall is thickened although the gallbladder is collapsed and there is pericholecystic fluid. Otherwise no significant findings or interval changes compared to the preprocedural study 02/25/2018.
--- NOTE | 2018-03-11 16:45 | C.PDOC ---
History Of Present Illness 62 year old male presents to the ED for evaluation after he felt hot, flushed and near syncopal while shopping today. Patient underwent admission from February 25- nfor choecystitis and had a percutaneous colectomy. Patient states he is pending an outpatient elective cholecystectomy. Patient denies fever, chills, pain in upper quadrants. Time Seen by Provider: 03/11/18 13:49 Chief Complaint (Nursing): Syncope History Per: Patient History/Exam Limitations: no limitations Onset/Duration Of Symptoms: Hrs Current Symptoms Are (Timing): Still Present Associated Symptoms Preceding Syncopal Episode: No Predromal Symptoms (Sudden Onset) Past Medical History Reviewed: Historical Data, Nursing Documentation, Vital Signs Vital Signs: Last Vital Signs Temp 97.6 F 03/11/18 13:26 Pulse 86 03/11/18 13:26 Resp 18 03/11/18 13:26 BP 107/66 03/11/18 13:26 Pulse Ox 95 03/11/18 13:26 - Medical History PMH: Diabetes (Mellitus type2 ), HTN Surgical History: No Surg Hx - [facility] Procedures DRAINAGE OF GALLBLADDER WITH DRAINAGE DEVICE, PERC APPROACH (02/25/18) Family History: States: Unknown Family Hx - Social History Hx Alcohol Use: No Hx Substance Use: No - Immunization History Hx Tetanus Toxoid Vaccination: No Hx Influenza Vaccination: No Hx Pneumococcal Vaccination: No Review Of Systems Neurological: Positive for: Other (near syncope ) Physical Exam - Physical Exam Appears: Non-toxic, No Acute Distress Skin: Normal Color, Warm, Dry Head: Atraumatic, Normacephalic Eye(s): bilateral: Normal Inspection Oral Mucosa: Moist Chest: Symmetrical, No Deformity, No Tenderness Cardiovascular: Rhythm Regular, No Murmur Respiratory: Normal Breath Sounds, No Rales, No Rhonchi, No Wheezing Gastrointestinal/Abdominal: Soft, No Tenderness, No Guarding, No Rebound, Other (tube in right upper quadrant ) Extremity: Normal ROM, Capillary Refill (less than 2 seconds ) Neurological/Psych: Oriented x3, Normal Speech, Normal Cognition ED Course And Treatment - Laboratory Results Result Diagrams: 03/11/18 13:50 03/11/18 13:50 Lab Interpretation: Abnormal ECG: Interpreted By Az ECG Rhythm: Sinus Rhythm, L BBB ECG Interpretation: Normal, No Changes From Prior (c/w 02/25/18), Abnormal Rate From EC O2 Sat by Pulse Oximetry: 95 (on RA) Pulse Ox Interpretation: Normal - Radiology CXR: Interpreted by Me CXR Interpretation: Yes: No Acute Disease Reevaluation Time: 16:46 Reassessment Condition: Improved - Physician Consult Information Outcome Of Conversation: 1645: d/w Dr. Gamboa, Hospitalist- ok to admit. 1400: d/w Surg Gerhard- previous eval by Dr. Martell- lary to Consult Medical Decision Making Medical Decision Making: prob persistent cholecystitis, Add Zosyn to Cipro/Flagyl pt claims to be taking @ home. Disposition Doctor Will See Patient In The: Hospital Counseled Patient/Family Regarding: Studies Performed, Diagnosis - Disposition Disposition: HOSPITALIZED Disposition Time: 16:48 - Clinical Impression Clinical Impression: Acute cholecystitis, Near syncope - Scribe Statement The provider has reviewed the documentation as recorded by the Scribe (Анна Cordova) Provider Attestation: All medical record entries made by the Scribe were at my direction and personally dictated by me. I have reviewed the chart and agree that the record accurately reflects my personal performance of the history, physical exam, medical decision making, and the department course for this patient. I have also personally directed, reviewed, and agree with the discharge instructions and disposition.
[2018-03-11] MEDS ORDERED: Piperacillin/Tazobact 3.375 gm 100 ML IV STA (16:46)
[2018-03-11] MEDS ORDERED: Piperacillin/Tazobact 3.375 gm 100 ML IVPB ONE (16:54)
[2018-03-11] MEDS ORDERED: Dextrose 50% SYRINGE Inj (50 ml) IV PRN (17:23)
[2018-03-11] MEDS ORDERED: Glucagon Recombinant 1 mg Inj IM PRN (17:23)
[2018-03-11] MEDS ORDERED: Sodium Chloride 0.9% 1,000 ML IV SCH (18:00)
[2018-03-11] MEDS: metroNIDAZOLE IV 500 mg/100 ml 500 MG/100 ML BAG IVPB SCH (19:09)
[2018-03-11] MEDS: Piperacill/Tazo 3.375gm in Dex 3.375 GM/50 ML BAG IVPB SCH (19:09)
[2018-03-11] MEDS: Sodium Chloride 0.9% 1,000 ML IV SCH (19:09)
--- NOTE | 2018-03-11 20:13 | CP.PCM.HP ---
<Jeffrey Pedraza - Last Filed: 03/11/18 21:07> History of Present Illness - History of Present Illness History of Present Illness: PGY-1 H&P note for Dr Gamboa cc: Sweating, syncope HPI: Patient is a 62 yo male with past medical history of DMII and HTN, who came to the ED after feeling extreme diaphoresis and weakness while at the [place] this morning. Patient describe the sweating as a sudden feeling that came over him, and he states his clothes were soaking wet. He felt weak and feeling like passing out, and he was helped by post hole digging machine operator to sit down, and 911 was called which patient states his blood pressure was read as low and his sugar levels were 187, and received 4 aspirin pills. Patient states he did not lose consciousness or had any trauma. Patient states feeling well before this morning. Patient was hospitalized at [facility] 02/25 for abdominal pain and fevers secondary to acute cholecystitis and IR rdiologist placed a cholecystostomy tube during hospitalization. Patient was discharged on 03/01 with ciprofloxacin 500mg, flagyl and with instructions to follow up with Dr Cabrera for elective cholecystectomy. Patient admits to noticing about 140cc of fluid every morning, stating that the drain collects large amount of red/yellow fluid. Patient denies fever, chills, headaches, vision changes, chest pain, shortness of breath, abdominal pain, nausea, vomiting, diarrhea, constipation or dysuria. Patient denies any sick contacts. PMD: Nevarez Allergies: NKDA PMHx: HTN, DMII, cholecystitis s/p cholecystostomy tube placement (2018) Shx: none Fmhx: CVA (mother, ), Breast cancer (sister) Social hx: former smoker (quitted 15 years ago, unspecified number of cigarettes), denies alcohol or drug use. currently retired and lives by himself Meds: metformin 1000 PO BID, Cozaar 25 mg PO daily Present on Admission - Present on Admission Any Indicators Present on Admission: No Review of Systems - Review of Systems All systems: reviewed and no additional remarkable complaints except Review of Systems: as mentioned in HPI Past Patient History - Past Medical History & Family History Past Medical History?: Yes - Past Social History Smoking Status: Former Smoker - CARDIAC Hx Hypertension: Yes - ENDOCRINE/METABOLIC Hx Diabetes Mellitus Type 2: Yes - MUSCULOSKELETAL/RHEUMATOLOGICAL Hx Falls: No - PSYCHIATRIC Hx Substance Use: No - SURGICAL HISTORY Hx Surgeries: No Other/Comment: RUQ gallbladder drainage system for infection - ANESTHESIA Hx Anesthesia: No Meds Allergies/Adverse Reactions: Allergies Allergy/AdvReac Type Severity Reaction Status Date / Time No Known Allergies Allergy Verified 03/11/18 13:34 Physical Exam - Constitutional Appears: Well, Non-toxic, No Acute Distress - Head Exam Head Exam: ATRAUMATIC, NORMAL INSPECTION, NORMOCEPHALIC - Eye Exam Eye Exam: EOMI, Normal appearance Pupil Exam: NORMAL ACCOMODATION, PERRL - ENT Exam ENT Exam: Mucous Membranes Moist, Normal Exam - Neck Exam Neck exam: Positive for: Full Rom, Normal Inspection. Negative for: Tenderness - Respiratory Exam Respiratory Exam: Clear to Auscultation Bilateral, NORMAL BREATHING PATTERN. absent: Accessory Muscle Use, Rales, Rhonchi, Wheezes, Respiratory Distress - Cardiovascular Exam Cardiovascular Exam: REGULAR RHYTHM, +S1, +S2 - GI/Abdominal Exam GI & Abdominal Exam: Distended, Normal Bowel Sounds, Soft. absent: Firm, Guarding, Rebound, Rigid, Tenderness Additional comments: Right upper quadrant NAYLA drain inserted, dressing in place on site of insertion, clean dry and intact. NAYLA drain collecting dark red fluid on bulb, and yellow fluid on collecting bag. - Extremities Exam Extremities exam: Positive for: full ROM, normal inspection. Negative for: calf tenderness, pedal edema, tenderness - Back Exam Back exam: FULL ROM, NORMAL INSPECTION - Neurological Exam Neurological exam: Alert, CN II-XII Intact, Oriented x3 - Psychiatric Exam Psychiatric exam: Normal Affect, Normal Mood - Skin Skin Exam: Dry, Intact, Normal Color, Warm Results - Vital Signs Recent Vital Signs: Last Vital Signs Temp 97.6 F 03/11/18 13:26 Pulse 96 H 03/11/18 19:36 Resp 20 03/11/18 19:36 BP 105/66 03/11/18 19:36 Pulse Ox 94 L 03/11/18 19:36 - Labs Result Diagrams: 03/11/18 13:50 03/11/18 13:50 Labs: Laboratory Results - last 24 hr 03/11/18 03/11/18 03/11/18 13:30 13:50 13:50 WBC 11.9 H RBC 4.89 Hgb 14.7 D Hct 43.5 MCV 89.0 MCH 30.1 MCHC 33.8 RDW 14.2 Plt Count 446 H D MPV 8.7 Neut % (Auto) 76.0 H Lymph % (Auto) 15.7 L [place] % (Auto) 6.8 Eos % (Auto) 0.7 Baso % (Auto) 0.8 Neut # (Auto) 9.0 H Lymph # (Auto) 1.9 [place] # (Auto) 0.8 Eos # (Auto) 0.1 Baso # (Auto) 0.1 Sodium 142 Potassium 4.6 Chloride 105 Carbon Dioxide 21 L Anion Gap 21 H BUN 20 Creatinine 1.4 Est GFR ( Amer) > 60 Est GFR (Non-Af Amer) 51 POC Glucose (mg/dL) 197 H Random Glucose 204 H Calcium 9.0 Total Bilirubin 0.7 AST 33 ALT 31 Alkaline Phosphatase 71 Troponin I < 0.0120 Total Protein 7.2 Albumin 4.0 Globulin 3.2 Albumin/Globulin Ratio 1.3 Assessment & Plan - Assessment and Plan (Free Text) Plan: syncopal episode - vital signs at time of examination WNL - EKG at ED - normal sinus rhythm, left bundle branch block - echo from last admission 02/25 - unremarkable - Cxray portable - f/u - Eugenia x3 - f/u - f/u am labs, mag and phosp - orthostatics vital signs cholecystitis, s/p cholecystostomy tube placement - WBC: 11.9 - afebrile - procalcitonin ordered - f/u - zosyn x 1 dose STAT in ED - Zosyn IVPB Q6h - Flagyl IVPB Q8 - Body fluid culture from NAYLA drain - ordered - follow up results - body fluid collected on last admission - E.Coli, Klebsiella pneumoniae ssp - Surgical consult placed for Dr Cabrera - help is appreciated - NPO after midnight Hx of HTN - Losartan 25 mg po daily - hold - normotensive, will hold bp meds - low dose insulin sliding scale ACHS - accuchecks ACHS Hx of Diabetes - Metforming 1000 mg Po BID - hold PPX - protonix 40mg IVP daily -SCDs Plan discussed with Dr Jared Pedraza, PGY-1 - Date & Time Date: 03/11/18 Time: 20:39 <Gamboa,Peter H - Last Filed: 03/12/18 07:52> Results - Vital Signs Recent Vital Signs: Last Vital Signs Temp 98 F 03/12/18 06:03 Pulse 81 03/12/18 06:03 Resp 21 03/12/18 06:03 BP 116/75 03/12/18 06:03 Pulse Ox 94 L 03/12/18 06:03 - Labs Result Diagrams: 03/12/18 04:55 03/12/18 02:11 Labs: Laboratory Results - last 24 hr 03/11/18 03/11/18 03/11/18 13:30 13:50 13:50 WBC 11.9 H RBC 4.89 Hgb 14.7 D Hct 43.5 MCV 89.0 MCH 30.1 MCHC 33.8 RDW 14.2 Plt Count 446 H D MPV 8.7 Neut % (Auto) 76.0 H Lymph % (Auto) 15.7 L [place] % (Auto) 6.8 Eos % (Auto) 0.7 Baso % (Auto) 0.8 Neut # (Auto) 9.0 H Lymph # (Auto) 1.9 [place] # (Auto) 0.8 Eos # (Auto) 0.1 Baso # (Auto) 0.1 Sodium 142 Potassium 4.6 Chloride 105 Carbon Dioxide 21 L Anion Gap 21 H BUN 20 Creatinine 1.4 Est GFR ( Amer) > 60 Est GFR (Non-Af Amer) 51 POC Glucose (mg/dL) 197 H Random Glucose 204 H Calcium 9.0 Phosphorus Magnesium Total Bilirubin 0.7 AST 33 ALT 31 Alkaline Phosphatase 71 Total Creatine Kinase CK-MB (Mass) Troponin I < 0.0120 Total Protein 7.2 Albumin 4.0 Globulin 3.2 Albumin/Globulin Ratio 1.3 03/11/18 03/11/18 03/12/18 20:25 22:19 02:11 WBC RBC Hgb Hct MCV MCH MCHC RDW Plt Count MPV Neut % (Auto) Lymph % (Auto) [place] % (Auto) Eos % (Auto) Baso % (Auto) Neut # (Auto) Lymph # (Auto) [place] # (Auto) Eos # (Auto) Baso # (Auto) Sodium 141 Potassium 4.1 Chloride 109 H Carbon Dioxide 20 L Anion Gap 16 BUN 17 Creatinine 1.0 Est GFR ( Amer) > 60 Est GFR (Non-Af Amer) > 60 POC Glucose (mg/dL) 84 Random Glucose 116 H Calcium 8.4 L Phosphorus 3.1 Magnesium 1.7 Total Bilirubin 0.5 AST 31 ALT 32 Alkaline Phosphatase 54 Total Creatine Kinase 38 L 32 L CK-MB (Mass) 0.96 0.89 Troponin I < 0.0120 < 0.0120 Total Protein 6.2 L Albumin 3.3 L Globulin 2.9 Albumin/Globulin Ratio 1.1 03/12/18 04:55 WBC 9.9 RBC 4.50 Hgb 13.2 Hct 39.5 MCV 87.7 MCH 29.3 MCHC 33.4 RDW 14.3 Plt Count 363 MPV 8.5 Neut % (Auto) 57.5 Lymph % (Auto) 29.9 [place] % (Auto) 9.8 Eos % (Auto) 2.0 Baso % (Auto) 0.8 Neut # (Auto) 5.7 Lymph # (Auto) 3.0 [place] # (Auto) 1.0 H Eos # (Auto) 0.2 Baso # (Auto) 0.1 Sodium Potassium Chloride Carbon Dioxide Anion Gap BUN Creatinine Est GFR ( Amer) Est GFR (Non-Af Amer) POC Glucose (mg/dL) Random Glucose Calcium Phosphorus Magnesium Total Bilirubin AST ALT Alkaline Phosphatase Total Creatine Kinase CK-MB (Mass) Troponin I Total Protein Albumin Globulin Albumin/Globulin Ratio Attending/Attestation - Attestation I have personally seen and examined this patient.: Yes I have fully participated in the care of the patient.: Yes I have reviewed all pertinent clinical information: Yes Notes (Text): 03/12/18 07:48 Medical attending: Patient was seen and examined by me. Reviewed the above note by the resident and agree with the above. The patient was not in any acute distress when I came and saw. His family was present at bedside in the ER. The patient in the recent past came to [facility] with very acute cholecystitis and cholecystostomy tube placement. He was given instructions to follow up in two weeks as well as take abx. [place] very [place] and had to laydown. He denied loss of conciousness. Will check cultures as well as the culture from the NAYLA drain. He previously had + growth and so will start IV abx and IVF He had a recent echo as well so will not repeat this. Jared Gamboa
--- NOTE | 2018-03-11 20:20 | CP.PCM.CON ---
History of Present Illness - History of Present Illness History of Present Illness: Surgery 62 M w recent cholecystitis and s/p cholecystostomy tube placement 2 weeks ago came with near syncopal episode. He reports that his blood pressure was low and felt weak. Denies fever, nausea, vomiting, CP , SOB, trauma, diarrhea, hematemesis, hematuria, hematochezia. Drain has been putting out bilious out put about 3 bulbs a day. Denies any sudden changes in output. EKG in ED showed sinus rhythm and LBBB. WBC is 12 LFT is wnl. Surgery is consulted to evaluate for cholecystitis. US shows tube in good place with thicken GB wall and fluids. Stone is present. Pt is feeling better now after IVF. PMH DM, cholecystitis PSH : cholecystostomy tube SS former smoker Review of Systems - Review of Systems Review of Systems: See HPI Past Patient History - Past Medical History & Family History Past Medical History?: Yes - Past Social History Smoking Status: Former Smoker - CARDIAC Hx Hypertension: Yes - ENDOCRINE/METABOLIC Hx Diabetes Mellitus Type 2: Yes - MUSCULOSKELETAL/RHEUMATOLOGICAL Hx Falls: No - PSYCHIATRIC Hx Substance Use: No - SURGICAL HISTORY Hx Surgeries: No Other/Comment: RUQ gallbladder drainage system for infection - ANESTHESIA Hx Anesthesia: No Meds Allergies/Adverse Reactions: Allergies Allergy/AdvReac Type Severity Reaction Status Date / Time No Known Allergies Allergy Verified 03/11/18 13:34 - Medications Medications: Current Medications Dextrose (Dextrose 50% Inj) 0 ml IV STAT PRN; Protocol PRN Reason: Hypoglycemia Protocol Dextrose (Glutose 15) 0 gm PO ONCE PRN; Protocol PRN Reason: Hypoglycemia Protocol Glucagon (Glucagen Diagnostic Kit) 0 mg IM STAT PRN; Protocol PRN Reason: Hypoglycemia Protocol Dextrose (Dextrose 5% In Water 1000 Ml) 1,000 mls @ 0 mls/hr IV .Q0M PRN; Protocol PRN Reason: Hypoglycemia Protocol Piperacillin Sod/Tazobactam Sod (Zosyn 3.375 Gm Iv Premix) 3.375 gm in 50 mls @ 100 mls/hr IVPB Q6H AMANDA; Protocol Last Admin: 03/11/18 19:09 Dose: 100 mls/hr Metronidazole (Flagyl) 500 mg in 100 mls @ 100 mls/hr IVPB Q8H AMANDA; Protocol Last Admin: 03/11/18 19:09 Dose: 100 mls/hr Sodium Chloride (Sodium Chloride 0.9%) 1,000 mls @ 70 mls/hr IV .[id number] AMANDA Last Admin: 03/11/18 19:09 Dose: 70 mls/hr Insulin Human Regular (Novolin R) 0 unit SC ACHS [facility]; Protocol Physical Exam - Constitutional Appears: No Acute Distress - Head Exam Head Exam: ATRAUMATIC, NORMAL INSPECTION, NORMOCEPHALIC - Eye Exam Eye Exam: EOMI, Normal appearance, PERRL. absent: Scleral icterus Pupil Exam: NORMAL ACCOMODATION, PERRL - ENT Exam ENT Exam: Mucous Membranes Moist, Normal Exam - Neck Exam Neck exam: Positive for: Normal Inspection - Respiratory Exam Respiratory Exam: NORMAL BREATHING PATTERN - Cardiovascular Exam Cardiovascular Exam: REGULAR RHYTHM. absent: Tachycardia - GI/Abdominal Exam GI & Abdominal Exam: Soft. absent: Distended, Tenderness Additional comments: R drain in place: bilious output - Exam Exam: NORMAL INSPECTION - Extremities Exam Extremities exam: Positive for: full ROM, normal inspection - Back Exam Back exam: NORMAL INSPECTION - Neurological Exam Neurological exam: Alert, CN II-XII Intact, Normal Gait, Oriented x3, Reflexes Normal - Psychiatric Exam Psychiatric exam: Normal Affect, Normal Mood - Skin Skin Exam: Dry, Intact, Normal Color, Warm Results - Vital Signs Recent Vital Signs: Last Vital Signs Temp 97.6 F 03/11/18 13:26 Pulse 96 H 03/11/18 19:36 Resp 20 03/11/18 19:36 BP 105/66 03/11/18 19:36 Pulse Ox 94 L 03/11/18 19:36 - Labs Result Diagrams: 03/11/18 13:50 03/11/18 13:50 Labs: Laboratory Results - last 24 hr 03/11/18 03/11/18 03/11/18 13:30 13:50 13:50 WBC 11.9 H RBC 4.89 Hgb 14.7 D Hct 43.5 MCV 89.0 MCH 30.1 MCHC 33.8 RDW 14.2 Plt Count 446 H D MPV 8.7 Neut % (Auto) 76.0 H Lymph % (Auto) 15.7 L [place] % (Auto) 6.8 Eos % (Auto) 0.7 Baso % (Auto) 0.8 Neut # (Auto) 9.0 H Lymph # (Auto) 1.9 [place] # (Auto) 0.8 Eos # (Auto) 0.1 Baso # (Auto) 0.1 Sodium 142 Potassium 4.6 Chloride 105 Carbon Dioxide 21 L Anion Gap 21 H BUN 20 Creatinine 1.4 Est GFR ( Amer) > 60 Est GFR (Non-Af Amer) 51 POC Glucose (mg/dL) 197 H Random Glucose 204 H Calcium 9.0 Total Bilirubin 0.7 AST 33 ALT 31 Alkaline Phosphatase 71 Troponin I < 0.0120 Total Protein 7.2 Albumin 4.0 Globulin 3.2 Albumin/Globulin Ratio 1.3 Assessment & Plan - Assessment and Plan (Free Text) Assessment: s/p cholecystostomy tube in 02/26 for cholecystitis : came with near syncopal episode. EKG LBBB Possible orthostatic hypotension, dehydration No sxs of acute cholecystitis such as nausea, vomiting, fever, abd pain at this time, no elevated LFT. VSS Bridget tube functioning -No acute surgical intervention at this time -medical management -Follow up with Dr. Zhao's office after DC in 1-2 weeks to schedule for elective cholecystectomy Case DW Dr. Cabrera
[2018-03-11 21:15] LABS: CK-MB 0.96 ng/mL (0.0-3.38)
[2018-03-11] MEDS: (Novolin R) Insulin Human Regular 100 units/ml vial SC SCH (22:30)
[2018-03-12] MEDS: Piperacill/Tazo 3.375gm in Dex 3.375 GM/50 ML BAG IVPB SCH ×2 (00:07→05:51)
[2018-03-12] MEDS ORDERED: metroNIDAZOLE IV 500 mg/100 ml 500 MG/100 ML BAG ONE (01:38)
[2018-03-12] MEDS: metroNIDAZOLE IV 500 mg/100 ml 500 MG/100 ML BAG IVPB SCH ×2 (02:08→11:00)
[2018-03-12 02:38] LABS: CK-MB 0.89 ng/mL (0.0-3.38)
[2018-03-12 02:55] LABS: ALB/GLOB RATIO 1.1 (1.0-2.1); ALBUMIN 3.3 g/dL (3.5-5.0); ALT/SGPT 32 U/L (21-72); AST/SGOT 31 U/L (17-59); BLOOD UREA NITROGEN 17 mg/dL (9-20); CALCIUM 8.4 mg/dl (8.6-10.4); GFR NON-AFRICAN AMERICAN > 60
[2018-03-12 05:01] LABS: BASO # 0.1 K/uL (0.0-0.2); BASO % 0.8 % (0.0-2.0); EOS # 0.2 K/uL (0.0-0.7); HEMOGLOBIN 13.2 g/dL (12.0-18.0); LYMPH % 29.9 % (20.0-40.0); MEAN CELL VOLUME 87.7 fL (80.0-94.0); MEAN CORPUSCULAR HEMOGLOBIN 29.3 pg (27.0-31.0); MEAN CORPUSCULAR HGB CONC 33.4 g/dL (33.0-37.0); MEAN PLATELET VOLUME 8.5 fL (7.2-11.7); MONO % 9.8 % (0.0-10.0); NEUT # 5.7 K/uL (1.8-7.0); NEUT % 57.5 % (50.0-75.0); NRBC % 0.1 % (0.0-2.0); RBC 4.5 Mil/uL (4.40-5.90); RED CELL DISTRIBUTION WIDTH 14.3 % (11.5-14.5); WHITE BLOOD COUNT 9.9 K/uL (4.8-10.8)
--- NOTE | 2018-03-12 07:16 | CP.PCM.PN ---
Subjective - Date & Time of Evaluation Date of Evaluation: 03/12/18 Time of Evaluation: 07:00 - Subjective Subjective: Surgery progress note for Dr. Cabrera Patient seen and examined this AM. No adverse events overnight. Patient states he has minimal abdominal pain, no nausea or vomiting. Cholecystostomy tube is functioning well Objective - Vital Signs/Intake and Output Vital Signs (last 24 hours): Temp Pulse Resp BP Pulse Ox 98 F 81 21 116/75 94 L 03/12/18 06:03 03/12/18 06:03 03/12/18 06:03 03/12/18 06:03 03/12/18 06:03 Intake and Output: 03/12/18 03/12/18 06:59 18:59 Output Total 200 Balance -200 - Medications Medications: Current Medications Dextrose (Dextrose 50% Inj) 0 ml IV STAT PRN; Protocol PRN Reason: Hypoglycemia Protocol Dextrose (Glutose 15) 0 gm PO ONCE PRN; Protocol PRN Reason: Hypoglycemia Protocol Glucagon (Glucagen Diagnostic Kit) 0 mg IM STAT PRN; Protocol PRN Reason: Hypoglycemia Protocol Dextrose (Dextrose 5% In Water 1000 Ml) 1,000 mls @ 0 mls/hr IV .Q0M PRN; Protocol PRN Reason: Hypoglycemia Protocol Piperacillin Sod/Tazobactam Sod (Zosyn 3.375 Gm Iv Premix) 3.375 gm in 50 mls @ 100 mls/hr IVPB Q6H AMANDA; Protocol Last Admin: 03/12/18 05:51 Dose: 100 mls/hr Metronidazole (Flagyl) 500 mg in 100 mls @ 100 mls/hr IVPB Q8H AMANDA; Protocol Last Admin: 03/12/18 02:08 Dose: 100 mls/hr Sodium Chloride (Sodium Chloride 0.9%) 1,000 mls @ 70 mls/hr IV .[id number] AMANDA Last Admin: 03/11/18 19:09 Dose: 70 mls/hr Insulin Human Regular (Novolin R) 0 unit SC ACHS AMANDA; Protocol Last Admin: 03/11/18 22:30 Dose: Not Given Pantoprazole Sodium (Protonix Inj) 40 mg IVP DAILY AMANDA - Labs Labs: 03/12/18 04:55 03/12/18 02:11 - Constitutional Appears: Well, Non-toxic, No Acute Distress - Head Exam Head Exam: ATRAUMATIC, NORMOCEPHALIC - Eye Exam Eye Exam: Normal appearance. absent: Conjunctival injection, Scleral icterus - ENT Exam ENT Exam: Mucous Membranes Moist, Normal Oropharynx - Respiratory Exam Respiratory Exam: NORMAL BREATHING PATTERN. absent: Accessory Muscle Use, Respiratory Distress - Cardiovascular Exam Cardiovascular Exam: RRR - GI/Abdominal Exam GI & Abdominal Exam: Soft. absent: Distended, Tenderness Additional comments: cholecystostomy tube in the right upper quadrant with moderate amount of green c lear fluid output - Neurological Exam Neurological Exam: Alert, Awake, Oriented x3 - Psychiatric Exam Psychiatric exam: Normal Affect, Normal Mood - Skin Skin Exam: Dry, Normal Color, Warm Assessment and Plan - Assessment and Plan (Free Text) Assessment: 62M s/p cholecystostomy tube placement for acute cholecystitis, presented for near syncope Plan: Pt's current symptoms do not seem to be related to patient's history of recent cholecystitis or cholecystostomy tube. Patient is not febrile, denies abdominal pain, is non-tender, and does not have leukocytosis or elevated LFT's. Patient does appear to be dehydrated No surgical intervention planned Drain cholecystostomy tube as needed heart healthy diet IVF resuscitation Management per primary Reach out to surgery team for any further questions or concerns Discussed with Dr. Rick John, PGY2
[2018-03-12] MEDS: (Novolin R) Insulin Human Regular 100 units/ml vial SC SCH ×2 (08:21→12:02)
[2018-03-12] MEDS: Sodium Chloride 0.9% 1,000 ML IV SCH (08:26)
[2018-03-12] MEDS ORDERED: Sodium Chloride 0.9% 1,000 ML IV SCH (10:03)
--- NOTE | 2018-03-12 11:51 | RAD ---
Chest x-ray single frontal view HISTORY: Syncope. COMPARISON: None available. FINDINGS: Mild venous congestion. Tortuous ectatic aorta. Mild cardiomegaly. Right paratracheal prominence likely represents prominent vasculature. Degenerative changes in the spine. Chronic deformity of the mid left clavicle. IMPRESSION: Mild venous congestion.
[2018-03-12 12:35] VITALS: BP 141/83; PULSE 86; RESP 2; TEMP 98.8; O2SAT 97
--- NOTE | 2018-03-12 14:40 | CP.PCM.DIS ---
<Jeffrey Pedraza - Last Filed: 03/12/18 14:37> Provider - Provider Date of Admission: 03/11/18 16:44 Attending physician: Jared Gamboa DO Time Spent in preparation of Discharge (in minutes): 180 Diagnosis - Discharge Diagnosis (1) Near syncope Status: Acute (2) Acute cholecystitis Status: Chronic Hospital Course - Lab Results Lab Results: Micro Results 03/11/18 21:44 Body Fluid - Gallbladder Gram Stain - Final Most Recent Lab Values WBC 9.9 K/uL (4.8-10.8) 03/12/18 04:55 RBC 4.50 Mil/uL (4.40-5.90) 03/12/18 04:55 Hgb 13.2 g/dL (12.0-18.0) 03/12/18 04:55 Hct 39.5 % (35.0-51.0) 03/12/18 04:55 MCV 87.7 fL (80.0-94.0) 03/12/18 04:55 MCH 29.3 pg (27.0-31.0) 03/12/18 04:55 MCHC 33.4 g/dL (33.0-37.0) 03/12/18 04:55 RDW 14.3 % (11.5-14.5) 03/12/18 04:55 Plt Count 363 K/uL (130-400) 03/12/18 04:55 MPV 8.5 fL (7.2-11.7) 03/12/18 04:55 Neut % (Auto) 57.5 % (50.0-75.0) 03/12/18 04:55 Lymph % (Auto) 29.9 % (20.0-40.0) 03/12/18 04:55 [place] % (Auto) 9.8 % (0.0-10.0) 03/12/18 04:55 Eos % (Auto) 2.0 % (0.0-4.0) 03/12/18 04:55 Baso % (Auto) 0.8 % (0.0-2.0) 03/12/18 04:55 Neut # (Auto) 5.7 K/uL (1.8-7.0) 03/12/18 04:55 Lymph # (Auto) 3.0 K/uL (1.0-4.3) 03/12/18 04:55 [place] # (Auto) 1.0 K/uL (0.0-0.8) H 03/12/18 04:55 Eos # (Auto) 0.2 K/uL (0.0-0.7) 03/12/18 04:55 Baso # (Auto) 0.1 K/uL (0.0-0.2) 03/12/18 04:55 Sodium 141 mmol/L (132-148) 03/12/18 02:11 Potassium 4.1 mmol/L (3.6-5.2) 03/12/18 02:11 Chloride 109 mmol/L (98-107) H 03/12/18 02:11 Carbon Dioxide 20 mmol/L (22-30) L 03/12/18 02:11 Anion Gap 16 (10-20) 03/12/18 02:11 BUN 17 mg/dL (9-20) 03/12/18 02:11 Creatinine 1.0 mg/dL (0.8-1.5) 03/12/18 02:11 Est GFR ( Amer) > 60 03/12/18 02:11 Est GFR (Non-Af Amer) > 60 03/12/18 02:11 POC Glucose (mg/dL) 145 mg/dL (65-110) H 03/12/18 11:58 Random Glucose 116 mg/dL (75-110) H 03/12/18 02:11 Calcium 8.4 mg/dl (8.6-10.4) L 03/12/18 02:11 Phosphorus 3.1 mg/dL (2.5-4.5) 03/12/18 02:11 Magnesium 1.7 mg/dL (1.6-2.3) 03/12/18 02:11 Total Bilirubin 0.5 mg/dL (0.2-1.3) 03/12/18 02:11 AST 31 U/L (17-59) 03/12/18 02:11 ALT 32 U/L (21-72) 03/12/18 02:11 Alkaline Phosphatase 54 U/L (38-126) 03/12/18 02:11 Total Creatine Kinase 32 U/L (55-170) L 03/12/18 02:11 CK-MB (Mass) 0.89 ng/mL (0.0-3.38) 03/12/18 02:11 Troponin I < 0.0120 ng/mL (0.00-0.120) 03/12/18 02:11 Total Protein 6.2 g/dL (6.3-8.3) L 03/12/18 02:11 Albumin 3.3 g/dL (3.5-5.0) L 03/12/18 02:11 Globulin 2.9 gm/dL (2.2-3.9) 03/12/18 02:11 Albumin/Globulin Ratio 1.1 (1.0-2.1) 03/12/18 02:11 Procalcitonin 0.06 NG/ML (0.19-0.49) L 03/12/18 04:55 - Hospital Course Hospital Course: On admission Patient is a 62 yo male with past medical history of DMII and HTN, who came to the ED after feeling extreme diaphoresis and weakness while at the [place] [employer] this morning. Patient describe the sweating as a sudden feeling that came over him, and he states his clothes were soaking wet. He felt weak and feeling like passing out, and he was helped by command post craftsman to sit down, and 911 was called which patient states his blood pressure was read as low and his sugar levels were 187, and received 4 aspirin pills. Patient states he did not lose consciousness or had any trauma. Patient states feeling well before this morning. Patient was hospitalized at [facility] 02/25 for abdominal pain and fevers secondary to acute cholecystitis and IR rdiologist placed a cholecystostomy tube during hospitalization. Patient was discharged on 03/01 with ciprofloxacin 500mg, flagyl and with instructions to follow up with Dr Cabrera for elective cholecystectomy. Patient admits to noticing about 140cc of fluid every morning, stating that the drain collects large amount of red/yellow fluid. Patient denies fever, chills, headaches, vision changes, chest pain, shortness of breath, abdominal pain, nausea, vomiting, diarrhea, constipation or dysuria. Patient denies any sick contacts. On Hospitalization Patient was admitted for evaluation for syncopal episode. Vitals signs at time of examination WNL. EKG at EKG shows normal sinus rhythm, left bundle branch block. Previous EKG on last admission shows Left bundle branch block as well. Echo was done on last admission which had unremarkable findings. CXray shows mild venous congestion. WBC on admission was 11.9. Patient was afebrile. abdominal U/S shows gallstones, gallb;ladder wall is thickened although the gallbladder is collapsed, and there is pericholecystic fluid. On ED, patient received one dose of zosyn stat. Patient was placed on manager small business. P atient was placed on Zosyn IVPB Q6h, Flagyl IVPB Q8h. Body fluid culture from NAYLA drain shows no bacteria on gram stain. Surgical consult was placed for Dr Cabrera, which consider that patient symptoms on current admission are not connected to patient history of recent cholecystitis or cholecystostomy tube, no surgical intervention at this time and to continue draining tube and IVF resuscitation. Patient Patient is not febrile, denies abdominal pain, is non- tender, and does not have leukocytosis or elevated LFT's. Patient does appear to be dehydrated. Patient is to follow with Dr Zhao's office after DC to schedule elective cholecystectomy. Patient was held his HTN medication losartan 25 mg po daily due to near syncope episode. Metformin 100mg PO BID was also held. Patient was placed on low dose insulin sliding scale ACHS and accuchecks ACHS. Patient was placed on NS @ 75 and then switched to 150mls/hr. Patient was given protonic 40mg IVP and SCDs for prophylaxis and started on a low fat diet. On discharge Patient was given the following instructions at discharge: Patient is to follow up with Dr Cabrera in his office on 03/14/2018 to discuss elective cholecystectomy. Please keep your appointment and make sure to follow up with Dr Cabrera. Please follow up with your primary doctor Geri in one or two weeks as well. Patient is to finish taking the antibiotics he was given on previous admission to the hospital. Please finish the course of antibiotics Patient is to discontinue his blood pressure medication losartan due to risk of lower pressure and causing another episode of syncope. Patient is to continue taking his other home meds as indicated. Please keep yourself hydrated. Remember that by losing fluid from your collecting tube, you need to replenish your fluids by increased amount of water intake. Resume regular diet If symptoms recur or worsen, please return to the ER. This is a brief summary of Patient's hospitalization course. For more information please visit patient's EMR. - Date & Time of H&P Date of H&P: 03/11/18 Time of H&P: 19:40 Discharge Exam - Head Exam Head Exam: ATRAUMATIC, NORMAL INSPECTION, NORMOCEPHALIC - Eye Exam Eye Exam: EOMI, Normal appearance - ENT Exam ENT Exam: Mucous Membranes Moist, Normal Exam - Neck Exam Neck exam: Normal Inspection - Respiratory Exam Respiratory Exam: Clear to PA & Lateral, NORMAL BREATHING PATTERN, UNREMARKABLE. absent: Accessory Muscle Use, Respiratory Distress - Cardiovascular Exam Cardiovascular Exam: REGULAR RHYTHM, +S1, +S2 - GI/Abdominal Exam GI & Abdominal Exam: Distended, Normal Bowel Sounds, Unremarkable. absent: Tenderness Additional comments: right upper quadrant NAYLA drain placed, insertion site covered with dressing, clean, dry and intact NAYLA drain in place, collecting bilious fluid - Extremities Exam Extremities exam: full ROM, normal inspection - Back Exam Back exam: FULL ROM, NORMAL INSPECTION - Neurological Exam Neurological exam: Alert, Normal Gait, Oriented x3 - Psychiatric Exam Psychiatric exam: Normal Affect, Normal Mood - Skin Skin Exam: Dry, Intact, Normal Color, Warm Discharge Plan - Follow Up Plan Condition: GOOD Disposition: HOME/ ROUTINE Instructions: Near Fainting (DC), Cholecystitis (DC) Additional Instructions: Patient is to follow up with Dr Cabrera in his office on 03/14/2018 to discuss elective cholecystectomy. Please keep your appointment and make sure to follow up with Dr Cabrera. Please follow up with your primary doctor Geri in one or two weeks as well. Patient is to finish taking the antibiotics he was given on previous admission to the hospital. Please finish the course of antibiotics Patient is to discontinue his blood pressure medication losartan due to risk of lower pressure and causing another episode of syncope. Patient is to continue taking his other home meds as indicated. Please keep yourself hydrated. Remember that by losing fluid from your collecting tube, you need to replenish your fluids by increased amount of water intake. Resume regular diet If symptoms recur or worsen, please return to the ER. El paciente debe hacer un seguimiento con el Dr. Cabrera en ramirez oficina el jumedardo 03/14/2018 para discutir la colecistectoma electiva. Por favor, acuda a ramirez julian y asegrese de seguir con el Dr. Cabrera. Por favor timoteo un seguimiento con ramirez mdico primario Geri en freddy o dos semanas tambin. El paciente debe terminar de sandi los antibiticos que le dieron en la admisin previa al hospital. Por favor termina el curso de antibioticos. El paciente debe interrumpir ramirez medicamento para la presin arterial losartn debido al riesgo de freddy presin ms baja y causar otro episodio de sncope. El paciente debe continuar tomando denisse otros medicamentos caseros deric se indica. Por favor mantente hidratado. Recuerde que al perder lquido de ramirez tubo colector, necesita reponer denisse lquidos con freddy mayor cantidad de agua. Reanudar la dieta regular Si los sntomas reaparecen o empeoran, vuelva a la caitie de emergencias. Referrals: Damion Nevarez [Staff Provider] - Yfn Cabrera MD [Staff Provider] - <Jared Gamboa - Last Filed: 03/12/18 15:26> Provider - Provider Date of Admission: 03/11/18 16:44 Attending physician: Jared Gamboa, Hospital Course - Lab Results Lab Results: Micro Results 03/11/18 21:44 Body Fluid - Gallbladder Gram Stain - Final Most Recent Lab Values WBC 9.9 K/uL (4.8-10.8) 03/12/18 04:55 RBC 4.50 Mil/uL (4.40-5.90) 03/12/18 04:55 Hgb 13.2 g/dL (12.0-18.0) 03/12/18 04:55 Hct 39.5 % (35.0-51.0) 03/12/18 04:55 MCV 87.7 fL (80.0-94.0) 03/12/18 04:55 MCH 29.3 pg (27.0-31.0) 03/12/18 04:55 MCHC 33.4 g/dL (33.0-37.0) 03/12/18 04:55 RDW 14.3 % (11.5-14.5) 03/12/18 04:55 Plt Count 363 K/uL (130-400) 03/12/18 04:55 MPV 8.5 fL (7.2-11.7) 03/12/18 04:55 Neut % (Auto) 57.5 % (50.0-75.0) 03/12/18 04:55 Lymph % (Auto) 29.9 % (20.0-40.0) 03/12/18 04:55 [place] % (Auto) 9.8 % (0.0-10.0) 03/12/18 04:55 Eos % (Auto) 2.0 % (0.0-4.0) 03/12/18 04:55 Baso % (Auto) 0.8 % (0.0-2.0) 03/12/18 04:55 Neut # (Auto) 5.7 K/uL (1.8-7.0) 03/12/18 04:55 Lymph # (Auto) 3.0 K/uL (1.0-4.3) 03/12/18 04:55 [place] # (Auto) 1.0 K/uL (0.0-0.8) H 03/12/18 04:55 Eos # (Auto) 0.2 K/uL (0.0-0.7) 03/12/18 04:55 Baso # (Auto) 0.1 K/uL (0.0-0.2) 03/12/18 04:55 Sodium 141 mmol/L (132-148) 03/12/18 02:11 Potassium 4.1 mmol/L (3.6-5.2) 03/12/18 02:11 Chloride 109 mmol/L (98-107) H 03/12/18 02:11 Carbon Dioxide 20 mmol/L (22-30) L 03/12/18 02:11 Anion Gap 16 (10-20) 03/12/18 02:11 BUN 17 mg/dL (9-20) 03/12/18 02:11 Creatinine 1.0 mg/dL (0.8-1.5) 03/12/18 02:11 Est GFR ( Amer) > 60 03/12/18 02:11 Est GFR (Non-Af Amer) > 60 03/12/18 02:11 POC Glucose (mg/dL) 145 mg/dL (65-110) H 03/12/18 11:58 Random Glucose 116 mg/dL (75-110) H 03/12/18 02:11 Calcium 8.4 mg/dl (8.6-10.4) L 03/12/18 02:11 Phosphorus 3.1 mg/dL (2.5-4.5) 03/12/18 02:11 Magnesium 1.7 mg/dL (1.6-2.3) 03/12/18 02:11 Total Bilirubin 0.5 mg/dL (0.2-1.3) 03/12/18 02:11 AST 31 U/L (17-59) 03/12/18 02:11 ALT 32 U/L (21-72) 03/12/18 02:11 Alkaline Phosphatase 54 U/L (38-126) 03/12/18 02:11 Total Creatine Kinase 32 U/L (55-170) L 03/12/18 02:11 CK-MB (Mass) 0.89 ng/mL (0.0-3.38) 03/12/18 02:11 Troponin I < 0.0120 ng/mL (0.00-0.120) 03/12/18 02:11 Total Protein 6.2 g/dL (6.3-8.3) L 03/12/18 02:11 Albumin 3.3 g/dL (3.5-5.0) L 03/12/18 02:11 Globulin 2.9 gm/dL (2.2-3.9) 03/12/18 02:11 Albumin/Globulin Ratio 1.1 (1.0-2.1) 03/12/18 02:11 Procalcitonin 0.06 NG/ML (0.19-0.49) L 03/12/18 04:55 Attending/Attestation - Attestation I have personally seen and examined this patient.: Yes I have fully participated in the care of the patient.: Yes I have reviewed all pertinent clinical information, including history, physical exam and plan: Yes Notes (Text): 03/12/18 15:26 Medical attending: Patient was seen and examined by me, I reviewed the above note by the medical records analyst. We saw the patient together and I agree with the above note I the patient was earlier evaluated by surgery. They recommend continuing waiting and having the patient follow-up outpatient for the removal of the tube. Because of the amount of fluid that is coming from the NAYLA drain it is very likley the patient is being dehydrated and low BP because of this. We will DC the patient home. He will need to avoid taking his BP medications for the time being and also take extra liquid by mouth until he is scheduled to follow up with surgery for removal of the NAYLA drain. The cultures from the NAYLA drain are negative for bacterial growth. (Previously + for e. coli) Patient explained he was sadden that the drain could not be removed sooner, but stated he would be following up with surgery thank you Jared Gamboa
== END 2018-03-12 12:45 | disposition home or self-care (01) ==
LOC: C.ER 13:17 → C.9E 16:44
PROVIDERS: ADMIT Hospitalist; ATTEND Hospitalist
DX: E86.0 Dehydration (principal); R55 Syncope and collapse; K80.00 Calculus of gallbladder with acute cholecystitis without obstruction; E11.9 Type 2 diabetes mellitus without complications; I10 Essential (primary) hypertension; I44.7 Left bundle-branch block, unspecified; Z79.84 Long term (current) use of oral hypoglycemic drugs; Z80.3 Family history of malignant neoplasm of breast; Z82.3 Family history of stroke; Z87.891 Personal history of nicotine dependence
CPT/HCPCS: 71045; 76705; 80053; 82948; 83735; 84100; 84145; 84484; 85025; 87040; 87070; 96360; 96365; C9113; G0378; J2543; J7030

== ENCOUNTER 2018-04-03 08:26 | Day surgery (SDC) | payer OTHER ==
[2018-04-03] MEDS ORDERED: Bupivacaine 0.25% 20 ML INJ IJ ONE (10:22)
[2018-04-03] MEDS ORDERED: Lidocaine/Epinephrine 1% 1:100000 10 ML IJ ONE (10:22)
[2018-04-03] MEDS ORDERED: ceFAZolin IV 1 gm in Dextrose 2 GM/100 ML BAG IVPB ONE (10:22)
[2018-04-03] MEDS ORDERED: Propofol 10 mg/ml Inj (20 ML) ONE ×2 (11:22→11:33)
[2018-04-03] MEDS ORDERED: Midazolam 2 MG/2 ML VIAL ONE (11:22)
[2018-04-03] MEDS ORDERED: Succinylcholine Chloride 20 mg/ml Syr (5 ml) IV ONE (11:23)
[2018-04-03] MEDS ORDERED: Etomidate 20 mg/10ml Inj IV ONE (11:23)
[2018-04-03] MEDS ORDERED: Neostigmine Methylsulfate 3mg/3ml Syringe IV ONE (12:36)
[2018-04-03] MEDS: HYDROmorphone 0.5 mg/0.5 ml ISec IVP PRN ×2 (13:22→13:45)
--- NOTE | 2018-04-03 13:28 | PCM.SURG1 ---
Surgeon's Initial Post Op Note - Surgeon's Notes Surgeon: Jaren Cabrera MD Florist Supplies Salesperson: АЛЕКСАНДР Mccormick Type of Anesthesia: General Endo Pre-Operative Diagnosis: Chronic Cholecystitis with Cholelithiasis. S/P Cholecystostomy tube. Posssible Post infectious Adhesions Operative Findings: Chronic Cholecystitis with Cholelithiasis. S/P Cholecystostomy tube. Posssible Post infectious Adhesions Post-Operative Diagnosis: Chronic Cholecystitis with Cholelithiasis. S/P Cholecystostomy tube. Posssible Post infectious Adhesions Operation Performed: Robotic Cholecystectomy. Robotic Enterolysis. Robotic removal of Drain( Cholecystostomy tube). Debridement of abdominal wound at drain site Specimen/Specimens Removed: Gallbladder. Drain. Debrided abdominal wound Estimated Blood Loss: EBL {In ML}: 20 Blood Products Given: N/A Drains Used: No Drains Post-Op Condition: Good Date of Surgery/Procedure: 04/03/18 Time of Surgery/Procedure: 13:28
[2018-04-03 14:36] VITALS: O2SAT 96
[2018-04-03 15:10] VITALS: RESP 18; TEMP 97.7
[2018-04-03] MEDS: Oxycodone/Acetaminophen 5/325 mg Tab PO PRN ×2 (15:30→15:39)
[2018-04-03 17:56] VITALS: BP 130/65; PULSE 81
--- NOTE | 2018-04-06 01:39 | OP ---
PROCEDURE DATE: 04/03/2018 PREOPERATIVE DIAGNOSES: 1. Chronic cholecystitis and cholelithiasis. 2. Status post cholecystostomy tube placement. 3. Possible extensive post-infectious adhesions. POSTOPERATIVE DIAGNOSES: 1. Chronic cholecystitis and cholelithiasis. 2. Status post cholecystostomy tube placement. 3. Possible extensive post-infectious adhesions. PROCEDURES DONE: 1. Robotic cholecystectomy. 2. Robotic extensive lysis of adhesion and enterolysis. 3. Robotic removal of cholecystostomy tube. 4. Abdominal wound debridement at the site of drain. SURGEON: Yfn Cabrera MD [employer]IC INTERNSHIP: АЛЕКСАНДР Mccormick ANESTHESIA: General endotracheal tube anesthesia. ESTIMATED BLOOD LOSS: Around 50 mL. DRAINS: None. PATHOLOGY: 1. Gallbladder with gallstones was sent for the pathology. 2. Cholecystotomy tube for culture. 3. Debrided abdominal wall wound. COMPLICATIONS: None. INTRAOPERATIVE FINDINGS: The patient had extensive omental colonic duodenal adhesions in the right upper quadrant and the cholecystostomy tube was going through the omentum, and first cholecystostomy tube was divided and it was taken out and extensive lysis of adhesion was done. It took approximately 30 to 40 minutes extra for the routine procedure. DESCRIPTION OF PROCEDURE: On intraoperative steps, this is a 62-year-old male who was diagnosed with chronic cholecystitis and cholelithiasis. The patient had a cholecystostomy tube placed six weeks ago. The patient was consented for laparoscopic assisted robotic cholecystectomy with removal of the drain. The patient was brought to the OR, placed supine on the operating table. After induction of the anesthesia, the abdomen was prepped and draped in the usual sterile fashion. The supraumbilical transverse incision was made after incising the skin, subcutaneous tissue and the fascia. The robotic camera port was placed, pneumo was created. Another 3 x 8 mm port was placed in the upper abdomen. Robot was brought in. Camera arm as well as arm 1 and arm 2 were docked and was found to have large phlegmon of omentum, colon, duodenum in the right upper quadrant. Extensive enterolysis was done. The gallbladder was identified. The cholecystostomy tube that was going through the omentum was first divided, and it was taken out. Now, the extensive lysis of adhesion was done. Calot's triangle was identified. The cystic duct and cystic artery were also identified. The intraoperative Firefly was used. A top down approach was done, and critical view of the safety was also identified. After that, the cystic duct and cystic artery were clipped at three places and cut in between two clips nearby the gallbladder. The gallbladder was dissected free from the gallbladder fossa, taken into EndoCatch bag, taken out through the umbilical port site and sent off the table for the pathology. There was proper hemostasis in each and every part of the procedure. All instruments were taken out. Robot was undocked. All the ports were taken out, and umbilical port site was closed in two layers, the fascia with 0 Vicryl interrupted sutures and skin with a 4-0 Monocryl. Dry sterile dressing was applied. The patient tolerated the procedure well. The abdominal wound at the drain site appeared to be extremely necrotic and inflamed. The abdominal wound was debrided. The wound was irrigated. The wound was partially closed and packed with gauze, and dry sterile dressing was applied. The patient tolerated the procedure well. Count of instrument and gauze was correct. There was no apparent complication. The patient was extubated in OR and sent to the postanesthesia care unit in stable condition. Yfn Cabrera MD
== END 2018-04-03 18:30 | disposition home or self-care (01) ==
LOC: C.SDS 08:26
PROVIDERS: ATTEND Surgery Surgical Critical Care
DX: K80.10 Calculus of gallbladder with chronic cholecystitis without obstruction (principal); K66.0 Peritoneal adhesions (postprocedural) (postinfection); L72.0 Epidermal cyst; T85.79XA Infection and inflammatory reaction due to other internal prosthetic devices, implants and grafts, initial encounter; Y73.8 Miscellaneous gastroenterology and urology devices associated with adverse incidents, not elsewhere classified
CPT/HCPCS: 11005; 47562; 49329; 82948; J0690; J1170; J2250; J2704; J2710; J3010; J7030